=== PATIENT | female | born 1945 | race Caucasian/White ===

== ENCOUNTER 2019-12-31 20:37 | Observation (INO) | payer MEDICARE, OTHER ==
[2019-12-31] MEDS ORDERED: SODIUM CHLORIDE 0.9% 1,000 ML IV STA (21:01)
[2019-12-31] MEDS ORDERED: ONDANSETRON 4 MG/2 ML VIAL IVP STA (21:01)
--- NOTE | 2019-12-31 21:06 | ED ---
Nausea/Vomiting/Diarrhea HPI - General Chief complaint: Nausea/Vomiting/Diarrhea Stated complaint: diarrhea, dehydrated Time Seen by Provider: 12/31/19 20:53 Source: patient Mode of arrival: wheelchair Limitations: no limitations - History of Present Illness Initial comments: 74-year-old female patient with metastatic colon cancer presents to the emergen cy department today for evaluation of vomiting, diarrhea, and oral thrush. Patient states she was initially diagnosed in 2016 with colon cancer. States she had surgery for removal but then they found metastases to her liver and lungs. Patient states she also had lung surgery to remove the tumors but it has returned. States in November she started a new chemotherapy drug orally. States she had a lot of side effects from the medication including vomiting, diarrhea, and thrush. States she was admitted to the hospital for dehydration and subsequently discharged to rehab. Patient states about a week ago she was discharged from rehab into her own apartment. States that about 5 days ago she started having diarrhea again. Patient states the diarrhea is watery and frequent. States that she is also feeling very nauseated and is unable to eat. States that today she noticed a white and red spots in her mouth so started her nystatin. She denies any known fever or chills. States she has been having a new right flank/side pain for the last five days that is constant and nagging. Denies any chest pain or shortness of breath. Denies any hematochezia or melena. Denies any recent antibiotic use. Patient denies any recent rash, cough, numbness, tingling, dizziness, weakness, hematuria, dysuria, urinary urgency, urinary frequency, headache, visual changes, or any other complaints. - Related Data Home Medications Medication Instructions Recorded Confirmed Acetaminophen [Tylenol Arthritis] 650 - 1,300 mg PO Q8H PRN 12/31/19 12/31/19 Docusate [Colace] 100 mg PO BID PRN 12/31/19 12/31/19 Allergies Allergy/AdvReac Type Severity Reaction Status Date / Time famotidine [From Pepcid] Allergy Rash/Hives Verified 12/31/19 22:53 fluconazole [From Diflucan] Allergy Rash/Hives/ Verified 12/31/19 22:53 Swelling codeine AdvReac Nausea & Verified 12/31/19 22:53 Vomiting naproxen AdvReac Rapid Verified 12/31/19 22:53 Heart Rate Review of Systems ROS Statement: Those systems with pertinent positive or pertinent negative responses have been documented in the HPI. ROS Other: All systems not noted in ROS Statement are negative. Past Medical History Past Medical History: Cancer Additional Past Medical History / Comment(s): stage IV Colon Ca, muscular dystr ophy History of Any Multi-Drug Resistant Organisms: None Reported Past Surgical History: Section Additional Past Surgical History / Comment(s): lung surgery, colon surgery, ankle fusion, foot surgery Past Psychological History: No Psychological Hx Reported Smoking Status: Never smoker Past Alcohol Use History: None Reported Past Drug Use History: None Reported General Exam Limitations: no limitations General appearance: alert, in no apparent distress, other (This is a well- developed, well-nourished adult female patient in no acute distress. Vital signs upon presentation are temperature 99.9F oral, pulse 81, respirations 20, blood pressure 167/77, pulse ox 98% on room air.) Eye exam: Present: normal appearance, PERRL, EOMI. Absent: scleral icterus, conjunctival injection, periorbital swelling ENT exam: Present: mucous membranes dry. Absent: normal exam, normal oropharynx (Patient has beefy red appearing tongue, there are white lesions consistent with oral thrush.) Respiratory exam: Present: normal lung sounds bilaterally. Absent: respiratory distress, wheezes, rales, rhonchi, stridor Cardiovascular Exam: Present: regular rate, normal rhythm, normal heart sounds. Absent: systolic murmur, diastolic murmur, rubs, gallop, clicks GI/Abdominal exam: Present: soft, normal bowel sounds. Absent: distended, t enderness, guarding, rebound, rigid Neurological exam: Present: alert, oriented X3, CN II-XII intact Psychiatric exam: Present: normal affect, normal mood Skin exam: Present: warm, dry, intact, normal color. Absent: rash Course Vital Signs 12/31/19 12/31/19 20:40 21:09 Temperature 99.9 F H Pulse Rate 81 80 Respiratory 20 16 Rate Blood Pressure 167/77 177/80 O2 Sat by Pulse 98 99 Oximetry Medical Decision Making - Medical Decision Making 74-year-old female patient with history of metastatic colon cancer, metastases to the liver and lungs presents to the emergency department today for evaluation of nausea, vomiting, diarrhea. States she is unable to eat or drink for the last 5 days. She also reporting persistent right flank pain. Physical examination revealed soft nontender abdomen. Lungs are clear to auscultation. She had evidence for oral candidiasis. Labs reviewed and are relatively unremarkable. Upon reevaluation patient is still feeling quite poorly. Given history and decreased intake will admit to the hospital for observation, IV fluid rehydration, and further evaluation in the morning. Patient is agreeable. - Lab Data Result diagrams: 12/31/19 21:35 12/31/19 21:35 Lab Results 12/31/19 12/31/19 12/31/19 Range/Units 21:35 21:35 22:07 WBC 10.1 (3.8-10.6) k/uL RBC 3.89 (3.80-5.40) m/uL Hgb 10.5 L (11.4-16.0) gm/dL Hct 33.0 L (34.0-46.0) % MCV 84.9 (80.0-100.0) fL MCH 27.0 (25.0-35.0) pg MCHC 31.8 (31.0-37.0) g/dL RDW 19.8 H (11.5-15.5) % Plt Count 311 (150-450) k/uL Neutrophils % 74 % Lymphocytes % 13 % Monocytes % 7 % Eosinophils % 4 % Basophils % 0 % Neutrophils # 7.5 (1.3-7.7) k/uL Lymphocytes # 1.3 (1.0-4.8) k/uL Monocytes # 0.7 (0-1.0) k/uL Eosinophils # 0.4 (0-0.7) k/uL Basophils # 0.0 (0-0.2) k/uL Hypochromasia Moderate Anisocytosis Slight Microcytosis Slight Sodium 136 L (137-145) mmol/L Potassium 4.2 (3.5-5.1) mmol/L Chloride 107 (98-107) mmol/L Carbon Dioxide 23 (22-30) mmol/L Anion Gap 6 mmol/L BUN 16 (7-17) mg/dL Creatinine 0.50 L (0.52-1.04) mg/dL Est GFR (CKD-EPI)AfAm >90 (>60 ml/min/1.73 sqM) Est GFR (CKD-EPI)NonAf >90 (>60 ml/min/1.73 sqM) Glucose 105 H (74-99) mg/dL Calcium 8.8 (8.4-10.2) mg/dL Magnesium 2.1 (1.6-2.3) mg/dL Total Bilirubin 0.6 (0.2-1.3) mg/dL AST 17 (14-36) U/L ALT 7 (4-34) U/L Alkaline Phosphatase 80 (38-126) U/L Total Protein 6.1 L (6.3-8.2) g/dL Albumin 3.5 (3.5-5.0) g/dL Lipase 93 (23-300) U/L Urine Color Yellow Urine Appearance Clear (Clear) Urine pH 5.0 (5.0-8.0) Ur Specific [place] 1.015 (1.001-1.035) Urine Protein 1+ H (Negative) Urine Glucose (UA) Negative (Negative) Urine Ketones Negative (Negative) Urine Blood Negative (Negative) Urine Nitrite Negative (Negative) Urine Bilirubin Negative (Negative) Urine Urobilinogen <2.0 (<2.0) mg/dL Ur Leukocyte Esterase Small H (Negative) Urine RBC 1 (0-5) /hpf Urine WBC 13 H (0-5) /hpf Ur Squamous Epith Cells 1 (0-4) /hpf Urine Bacteria Rare H (None) /hpf Urine Mucus Occasional H (None) /hpf Disposition Clinical Impression: Intractable nausea and vomiting, Diarrhea, Oral candidiasis Disposition: ADMITTED IP TO THIS [facility] Condition: Serious Referrals: Roderick Barclay MD [Primary Care Provider] - 1-2 days Decision to Admit Reason: Admit from EC Decision Date: 12/31/19 Decision Time: 23:41
[2019-12-31 21:49] LABS: Anisocytosis Slight; Basophils % (A) 0 %; Eosinophils # (A) 0.4 k/uL (0-0.7); Eosinophils % (A) 4 %; HGB 10.5 gm/dL (11.4-16.0); Hypochromasia Moderate; Lymphocytes # (A) 1.3 k/uL (1.0-4.8); Lymphocytes % (A) 13 %; MCHC 31.8 g/dL (31.0-37.0); MCV 84.9 fL (80.0-100.0); Mean Platelet Volume 7.4; Microcytosis Slight; Monocytes # (A) 0.7 k/uL (0-1.0); Monocytes % (A) 7 %; Neutrophils # (A) 7.5 k/uL (1.3-7.7); Neutrophils % (A) 74 %; Platelet Count 311 k/uL (150-450); RBC 3.89 m/uL (3.80-5.40); RDW 19.8 % (11.5-15.5); WBC 10.1 k/uL (3.8-10.6)
[2019-12-31 22:00] LABS: ALT 7 U/L (4-34); AST 17 U/L (14-36); African American GFR (CKD) >90 (>60 ml/min/1.73 sqM); Albumin 3.5 g/dL (3.5-5.0); Alkaline Phosphatase 80 U/L (38-126); Anion Gap 6 mmol/L; Blood Urea Nitrogen 16 mg/dL (7-17); Calcium 8.8 mg/dL (8.4-10.2); Carbon Dioxide 23 mmol/L (22-30); Chloride 107 mmol/L (98-107); Glucose 105 mg/dL (74-99); Magnesium 2.1 mg/dL (1.6-2.3); Non-African American GFR(CKD) >90 (>60 ml/min/1.73 sqM); Potassium 4.2 mmol/L (3.5-5.1); Sodium 136 mmol/L (137-145); Total Bilirubin 0.6 mg/dL (0.2-1.3); Total Protein 6.1 g/dL (6.3-8.2)
[2019-12-31 22:18] LABS: Appearance,Urine Clear (Clear); Bacteria,Urine Rare /hpf; Bilirubin,Urine Negative (Negative); Blood,Urine Negative (Negative); Color,Urine Yellow; Glucose,Urine (UA) Negative (Negative); Ketones,Urine Negative (Negative); Leukocyte Esterase,Urine Small (Negative); Mucus,Urine Occasional /hpf; Nitrite,Urine Negative (Negative); Protein,Urine 1+ (Negative); RBC,Urine 1 /hpf (0-5); Specific Gravity,Urine 1.015 (1.001-1.035); Squamous Epithelial Cell,Urine 1 /hpf (0-4); Urobilinogen,Urine <2.0 mg/dL (<2.0); WBC,Urine 13 /hpf (0-5)
[2019-12-31] MEDS ORDERED: ONDANSETRON 4 MG/2 ML VIAL IVP PRN (23:38)
[2019-12-31] MEDS ORDERED: NALOXONE 0.4 MG/ML 1 ML VIAL IV PRN (23:38)
[2019-12-31] MEDS ORDERED: SODIUM CHLORIDE 0.9% 1,000 ML IV SCH (23:45)
[2020-01-01] MEDS: NYSTATIN 100,000 UNIT/ML SUSP 500,000 UNIT/5 ML CUP PO SCH ×4 (08:38→21:13)
[2020-01-01] MEDS ORDERED: FLUCONAZOLE 150 MG TAB PO STA (11:55)
[2020-01-01] MEDS ORDERED: CALCIUM CARBONATE 500 MG CHEWABLE PO PRN (11:56)
[2020-01-01] MEDS ORDERED: MELATONIN 3 MG TABLET PO PRN (11:56)
[2020-01-01] MEDS ORDERED: ALPRAZolam 0.25 MG TAB PO PRN (11:56)
[2020-01-01] MEDS ORDERED: ACETAMINOPHEN TAB 325 MG TAB PO PRN (11:56)
[2020-01-01] MEDS ORDERED: MAG HYDROX/AL HYDROX/SIMETH 30 ML CUP PO PRN (11:56)
[2020-01-01] MEDS: SODIUM CHLORIDE 0.9% 1,000 ML IV SCH ×2 (12:14→21:16)
[2020-01-01] MEDS: ENOXAPARIN 40 MG/0.4 ML SYRINGE SQ SCH (12:15)
--- NOTE | 2020-01-01 18:22 | P.HPIM ---
History of Present Illness H&P Date: 01/01/20 Chief Complaint: Nausea vomiting some diarrhea History of presenting complaint: This is a pleasant [address] Barclay. Patient's oncologist is Dr. Jack Vela. Patient is a diagnoses of metastatic colon cancer and presents with nausea vomiting and some diarrhea. She was initially diagnosed in 2017. She had some surgical resection and was found to have metastatic cyst of the liver and the lungs. Also had some lung surgery for removal of the tumor. But some of that r elapse. In November of this year she started off with oral chemotherapy. Having side effects predominantly nausea vomiting diarrhea. Recently admitted to the hospital for dehydration. She was at the rehab center on apartment. About for 5 days ago she started having some watery diarrhea again. Last 24 Oz ages [place] some gas. A very small amount of stool. Significant amount of nausea. Also some oral lesions. No real pain issue. Just weak and tired. Review of systems: GEN.: Diet, decreased appetite EYES: None HEENT: None NECK: None RESPIRATORY: None CARDIOVASCULAR: None GASTROINTESTINAL: As above GENITOURINARY: None MUSCULOSKELETAL: None LYMPHATICS: None HEMATOLOGICAL: None PSYCHIATRY: None NEUROLOGICAL: None Past medical history to include: Stage IV colon cancer with metastatic cyst of the lung and liver, muscular dystrophy for which she uses a wheelchair Social history: Patient is in a senior housing last for 5 days. Smoked for close to 30 as talked about 15 years ago. Does use electric wheelchair. Physical examination: VITAL SIGNS: 99.9, 81, 20, 167/77, 98% on room air GENERAL: BMI 27.7, laying of breath slightly tired. EYES: Pupils equal. Conjunctiva normal. HEENT: External appearance of nose and ears normal, oral cavity dry mucosa and some white spots. NECK: JVD not raised; masses not palpable. HEART: First and second heart sounds are normal; no edema. LUNGS: Respiratory rate normal; clear to auscultation. ABDOMEN: Soft, nontender, liver spleen not palpable, no masses palpable. PSYCH: Alert and oriented x3; mood and affect normal. NEUROLOGICAL: Cranial nerves grossly intact; no facial asymmetry, power and sensation grossly intact. LYMPHATICS: No lymph nodes palpable in the axilla and neck INVESTIGATIONS, reviewed in the clinical context: White count 10.1 hemoglobin 10.5 platelets 311 potassium 4.2 crit to 0.50 UA showing small leukoesterase some WBC Assessment: -This is a patient is getting oral chemotherapy for her metastatic colon cancer. Has had a bout of nausea vomiting diarrhea. Cardiac improvement and came back 5 days ago. Again settling down. Appears to be vital gastroenteritis. Denies any fever or chills. No abdominal tenderness. -Metastatic stage IV colon cancer -Chronic muscular dystrophy -Nausea likely secondary to oral chemotherapy pill -Oropharyngeal thrush Plan: Patient be hydrated IV. We will add Metamucil. We'll give a scopolamine patch. Get oncology consultation. DVT prophylaxis. Add nystatin swish and swallow. Full liquid diet. Given was discussed with the patient question also. Past Medical History Past Medical History: Cancer Additional Past Medical History / Comment(s): stage IV Colon Ca, muscular dystrophy History of Any Multi-Drug Resistant Organisms: None Reported Past Surgical History: Section Additional Past Surgical History / Comment(s): lung surgery, colon surgery, ankle fusion, foot surgery Past Anesthesia/Blood Transfusion Reactions: No Reported Reaction, Postoperative Nausea & Vomiting (PONV) Past Psychological History: No Psychological Hx Reported Smoking Status: Former smoker Past Alcohol Use History: None Reported Past Drug Use History: None Reported - Past Family History Mother Family Medical History: Cancer Additional Family Medical History / Comment(s): Parents of cancer Sister(s) Additional Family Medical History / Comment(s): Musccular dystrophy Brother(s) Family Medical History: Diabetes Mellitus Medications and Allergies Home Medications Medication Instructions Recorded Confirmed Type Acetaminophen [Tylenol Arthritis] 650 - 1,300 mg PO Q8H PRN 12/31/19 12/31/19 History Docusate [Colace] 100 mg PO BID PRN 12/31/19 12/31/19 History Allergies Allergy/AdvReac Type Severity Reaction Status Date / Time famotidine [From Pepcid] Allergy Rash/Hives Verified 12/31/19 22:53 fluconazole [From Diflucan] Allergy Rash/Hives/ Verified 12/31/19 22:53 Swelling codeine AdvReac Nausea & Verified 12/31/19 22:53 Vomiting naproxen AdvReac Rapid Verified 12/31/19 22:53 Heart Rate Physical Exam Vitals: Vital Signs Temp Pulse Pulse Resp BP BP Pulse Ox 01/01/20 05:37 98.9 F 75 18 170/77 96 07/30/20 02:59 16 01/01/20 00:10 99.4 F 01/01/20 00:07 82 16 170/81 98 01/01/20 00:00 98.4 F 76 18 167/78 100 12/31/19 21:09 80 16 177/80 99 12/31/19 20:40 99.9 F H 81 20 167/77 98 Intake and Output 12/31/19 01/01/20 01/01/20 22:59 06:59 14:59 Output Total 0 Balance 0 Output: Stool 0 Other: Voiding Method Toilet Bedside Commode Bedside Commode # Voids 1 Weight 64.41 kg 64.41 kg Results CBC & Chem 7: 12/31/19 21:35 12/31/19 21:35 Labs: Abnormal Lab Results - Last 24 Hours (Table) 12/31/19 12/31/19 12/31/19 Range/Units 21:35 21:35 22:07 Hgb 10.5 L (11.4-16.0) gm/dL Hct 33.0 L (34.0-46.0) % RDW 19.8 H (11.5-15.5) % Sodium 136 L (137-145) mmol/L Creatinine 0.50 L (0.52-1.04) mg/dL Glucose 105 H (74-99) mg/dL Total Protein 6.1 L (6.3-8.2) g/dL Urine Protein 1+ H (Negative) Ur Leukocyte Esterase Small H (Negative) Urine WBC 13 H (0-5) /hpf Urine Bacteria Rare H (None) /hpf Urine Mucus Occasional H (None) /hpf Microbiology - Last 24 Hours (Table) 12/31/19 22:07 Urine Culture - Preliminary Urine,Voided Thrombosis Risk Factor Assmnt - Choose All That Apply Any of the Below Risk Factors Present?: Yes Each Factor Represents 1 point: Obesity (BMI >25) Other Risk Factors: Yes Each Risk Factor Represents 3 Points: Age 75 years or older, Family history of DVT/PE Other congenital or acquired thrombophilia - If yes, enter type in comment: No Thrombosis Risk Factor Assessment Total Risk Factor Score: 7 Thrombosis Risk Factor Assessment Level: High Risk
[2020-01-01] MEDS: PSYLLIUM HUSK 100% 6 GM PACKET PO SCH (21:09)
--- NOTE | 2020-01-02 00:48 | P.CONS ---
History of Present Illness - Reason for Consult Consult date: 01/01/20 metastatic colon cancer, intractable nausea vomiting and diarrhea - History of Present Illness the patient is 74-year-old white female, with oncology treatment has been through [facility] under Dr. Jack Vela, in the [facility]. The patient was diagnosed with colon cancer in 2016 and underwent surgery. She states that due to early-stage systemic chemotherapy was not recommended. Unfortunately she developed metastatic recurrence in late 2017 in the lung. She was treated with resection of some of the lesions, and definitive radiation to a remaining lesion on the left lung in early 2018. She was then on systemic chemotherapy, and states that she had about 8 cycles of the same. Scans at that time showed no evidence of disease. The patient was having progressive side effects from chemo due to which she was changed to Avastin. According to the patient she then developed several competitions related to Avastin, including kidney damage. Therefore this was discontinued. Restaging at this time, around 07/24 showed progression with metastatic disease now in the liver. The patient states that she had biomarker testing done. It appears that this was negative, as it was recommended that she start Stivarga. She ultimately started this in 11/21, and had 1 cycle but then developed nausea, vomiting, diarrhea and dehydration and was admitted. She also had an intercurrent UTI at that time. Hospitalization was complicated by fluid overload. She was hospitalized for about 10 days and then transfer to ECF. She did improve gradually in the ECF and was discharged home around 12/20/19. She states that she was doing well for about a week with good appetite and slowly increasing strength. However over the last 4-5 days she developed diarrhea again which increased to about 5-6 watery bowel movements per day. She'll also having nausea and decreased appetite. she noticed recurrent thrush on her tongue. She denied any fevers or chills. Due to progressive symptoms, she came into the emergency room and was admitted for further management. she states that she was supposed to resume Stivarga with dose reduction on 01/05/20 Review of Systems Constitutional: Reports fatigue, Reports weakness, Reports weight loss Eyes: denies blurred vision, denies pain Ears: deny: decreased hearing, ear discharge, earache, tinnitus Ears, nose, mouth and throat: Reports as per HPI (thrush), Denies headache, Denies sore throat Cardiovascular: Reports decreased exercise tolerance Respiratory: Denies cough Gastrointestinal: Reports diarrhea, Reports nausea, Reports vomiting Genitourinary: Denies dysuria, Denies hematuria Menstruation: Reports postmenopausal Musculoskeletal: Reports muscle weakness Integumentary: Denies pruritus, Denies rash Neurological: Reports weakness Psychiatric: Denies anxiety, Denies depression Endocrine: Reports fatigue, Reports weight change Hematologic/Lymphatic: Reports as per HPI Past Medical History Past Medical History: Cancer Additional Past Medical History / Comment(s): stage IV Colon Ca, muscular dystrophy History of Any Multi-Drug Resistant Organisms: None Reported Past Surgical History: Section Additional Past Surgical History / Comment(s): lung surgery, colon surgery, ankle fusion, foot surgery Past Anesthesia/Blood Transfusion Reactions: No Reported Reaction, Postoperative Nausea & Vomiting (PONV) Past Psychological History: No Psychological Hx Reported Smoking Status: Former smoker Past Alcohol Use History: None Reported Past Drug Use History: None Reported - Past Family History Mother Family Medical History: Cancer Additional Family Medical History / Comment(s): Parents of cancer Sister(s) Additional Family Medical History / Comment(s): Musccular dystrophy Brother(s) Family Medical History: Diabetes Mellitus Medications and Allergies Home Medications Medication Instructions Recorded Confirmed Type Acetaminophen [Tylenol Arthritis] 650 - 1,300 mg PO Q8H PRN 12/31/19 12/31/19 History Docusate [Colace] 100 mg PO BID PRN 12/31/19 12/31/19 History Allergies Allergy/AdvReac Type Severity Reaction Status Date / Time famotidine [From Pepcid] Allergy Rash/Hives Verified 12/31/19 22:53 fluconazole [From Diflucan] Allergy Rash/Hives/ Verified 12/31/19 22:53 Swelling codeine AdvReac Nausea & Verified 12/31/19 22:53 Vomiting naproxen AdvReac Rapid Verified 12/31/19 22:53 Heart Rate Physical Exam Vitals: Vital Signs Temp Pulse Pulse Resp BP BP Pulse Ox 01/01/20 11:38 99.2 F 68 17 138/75 99 01/01/20 05:37 98.9 F 75 18 170/77 96 01/01/20 02:59 16 01/01/20 00:10 99.4 F 01/01/20 00:07 82 16 170/81 98 01/01/20 00:00 98.4 F 76 18 167/78 100 12/31/19 21:09 80 16 177/80 99 12/31/19 20:40 99.9 F H 81 20 167/77 98 Intake and Output 01/01/20 01/01/20 01/01/20 06:59 14:59 22:59 Intake Total 830 Output Total 0 Balance 0 830 Intake: Intake, IV Titration 350 Amount Sodium Chloride 0.9% 1, 350 000 ml @ 50 mls/hr IV . Q20H [facility] Rx#:[id number] Oral 480 Output: Stool 0 Other: Voiding Method Bedside Commode Bedside Commode # Voids 1 Weight 64.41 kg - Constitutional General appearance: no acute distress - EENT Eyes: EOMI, PERRLA - Neck Neck: no lymphadenopathy Thyroid: bilateral: normal size - Respiratory Respiratory: bilateral: CTA - Cardiovascular Rhythm: regular Heart sounds: normal: S1, S2 - Gastrointestinal General gastrointestinal: normal bowel sounds, soft - Integumentary Integumentary: normal - Neurologic Neurologic: CNII-XII intact - Musculoskeletal Musculoskeletal: strength equal bilaterally - Psychiatric Psychiatric: A&O x's 3, appropriate affect Results CBC & Chem 7: 12/31/19 21:35 12/31/19 21:35 Labs: Abnormal Lab Results - Last 24 Hours (Table) 12/31/19 12/31/19 12/31/19 Range/Units 21:35 21:35 22:07 Hgb 10.5 L (11.4-16.0) gm/dL Hct 33.0 L (34.0-46.0) % RDW 19.8 H (11.5-15.5) % Sodium 136 L (137-145) mmol/L Creatinine 0.50 L (0.52-1.04) mg/dL Glucose 105 H (74-99) mg/dL Total Protein 6.1 L (6.3-8.2) g/dL Urine Protein 1+ H (Negative) Ur Leukocyte Esterase Small H (Negative) Urine WBC 13 H (0-5) /hpf Urine Bacteria Rare H (None) /hpf Urine Mucus Occasional H (None) /hpf Microbiology - Last 24 Hours (Table) 12/31/19 22:07 Urine Culture - Preliminary Urine,Voided Assessment and Plan (1) Diarrhea Narrative/Plan: The patient had significant diarrhea as well as nausea and vomiting with her regimen. This has resolved with stoppage of her regimen. She has had recurrent GI symptoms. These are unlikely to be related treatment effect, as she has been off treatment now for some weeks and treatment related adverse events had resolved. - Abdominal exam is fairly normal. - The patient actually feels significantly improved since admission. Therefore clinically an infectious cause is felt to be a primary differential. Urinalysis did show mild abnormality. Await cultures. Stool studies have also been ordered. - The stool studies are negative patient can be treated with antidiarrheals. However she has not had any diarrhea today. - If infection workup is negative, and symptoms resolved the patient can subsequently be discharged Current Visit: Yes Status: Acute Code(s): R19.7 - DIARRHEA, UNSPECIFIED SNOMED Code(s): 92820231 (2) Intractable nausea and vomiting Narrative/Plan: Etiology felt to be same as noted above for diarrhea. Unlikely to be related to her medication given her interval since last dosing and resolution of symptoms since then, followed by recurrence. - Symptomatic treatment with antibiotics - Patient already feels significantly improved today. Current Visit: Yes Status: Acute Code(s): R11.2 - NAUSEA WITH VOMITING, UNSPECIFIED SNOMED Code(s): 610571425 (3) Colon cancer Narrative/Plan: Diagnostic and therapeutic circumstances as described. If current symptoms of progressive the patient will need additional imaging. However given improvement in symptoms, and fairly benign exam, additional CT imaging is unlikely to be of benefit as the patient has no comparison studies here. -Additional CT imaging only if the patient has progressive unexplained symptoms - Patient already has follow-up scheduled with her oncologist Dr. Vela in about 2 weeks. - Was supposed to resume stivarga on 01/05/20 with a reduced dose (80 mg daily day 1-21-28 days). Assuming the patient recovers from her acute situation and is able to be discharged, she was advised not to resume the medication before contacting Dr. Vela Current Visit: Yes Status: Acute Code(s): C18.9 - MALIGNANT NEOPLASM OF COLON, UNSPECIFIED SNOMED Code(s): 228841526
[2020-01-02] MEDS: SODIUM CHLORIDE 0.9% 1,000 ML IV SCH ×2 (03:41→09:07)
[2020-01-02] MEDS ORDERED: FLUCONAZOLE 100 MG TAB PO SCH (09:00)
[2020-01-02] MEDS: ENOXAPARIN 40 MG/0.4 ML SYRINGE SQ SCH (09:10)
[2020-01-02] MEDS: PSYLLIUM HUSK 100% 6 GM PACKET PO SCH (09:11)
[2020-01-02] MEDS: NYSTATIN 100,000 UNIT/ML SUSP 500,000 UNIT/5 ML CUP PO SCH ×2 (09:12→12:41)
[2020-01-02 11:56] VITALS: BP 146/68; PULSE 65; RESP 18; TEMP 98.2
--- NOTE | 2020-01-03 19:58 | P.DS ---
Providers Date of admission: 12/31/19 23:38 Expected date of discharge: 01/02/20 Attending physician: Fili Orellana Consults: 01/01/20 11:58 Consult Physician Routine Consulting Provider: Get Nguyen Consult Reason/Comments: colon cancer Do you want consulting provider notified?: Yes Primary care physician: [facility] Course: Chief Complaint: Nausea vomiting some diarrhea History of presenting complaint: This is a pleasant [address] Barclay. Patient's oncologist is Dr. Jack Vela. Patient is a diagnoses of metastatic colon cancer and presents with nausea vomiting and some diarrhea. She was initially diagnosed in 2016. She had some surgical resection and was found to have metastasis of the liver and the lungs. Also had some lung surgery for removal of the tumor. But some of that relapse. In November of this year she started off with oral chemotherapy. Having side effects predominantly nausea vomiting diarrhea. Recently admitted to the hospital for dehydration. About for 5 days ago she started having some watery diarrhea again. Last 24 hours only passing some gas and little stool. Significant amount of nausea. Also some oral lesions. No real pain issue. Just weak and tired. Admitted with vital gastroenteritis, oral thrush, dehydration. Patient responded well to oral nystatin, IV fluids. Seen by Dr. Nguyen from oncology. Today-doing much better. Keen to go home. Follow up with her oncologist. Symptoms much improved. Consultation: Dr. Nguyen from oncology Physical examination: VITAL SIGNS: 98.2, 65, 18, 1 46 x 68, then 9% room air GENERAL: Sitting up, more comfortable EYES: Pupils equal. Conjunctiva normal. HEENT: External appearance of nose and ears normal, oral cavity dry mucosa and some white spots. NECK: JVD not raised; masses not palpable. HEART: First and second heart sounds are normal; no edema. LUNGS: Respiratory rate normal; clear to auscultation. ABDOMEN: Soft, nontender, liver spleen not palpable, no masses palpable. PSYCH: Alert and oriented x3; mood and affect normal. INVESTIGATIONS, reviewed in the clinical context: White count 10.1 hemoglobin 10.5 platelets 311 potassium 4.2 crit to 0.50 UA showing small leukoesterase some WBC COVID 19 PCF-not detected Assessment: -This is a patient is getting oral chemotherapy for her metastatic colon cancer. Has had a bout of nausea vomiting diarrhea. Cardiac improvement and came back 5 days ago. Again settling down. Appears to be bilateral gastroenteritis. Denies any fever or chills. No abdominal tenderness. -Metastatic stage IV colon cancer -Chronic muscular dystrophy -Nausea likely secondary to oral chemotherapy pill -Oropharyngeal thrush Disposition: Home Patient Condition at Discharge: Stable Plan - Discharge Summary New Discharge Prescriptions: New Psyllium Husk 100% [Metamucil Packet] 6 gm PO BID #60 packet Nystatin 100,000 Unit/ml Susp [Mycostatin Oral Susp] 500,000 unit PO QID #100 ml Continue Acetaminophen [Tylenol Arthritis] 650 - 1,300 mg PO Q8H PRN PRN Reason: Pain Discontinued Docusate [Colace] 100 mg PO BID PRN PRN Reason: Constipation Discharge Medication List Acetaminophen [Tylenol Arthritis] 650 - 1,300 mg PO Q8H PRN 12/31/19 [History] Nystatin 100,000 Unit/ml Susp [Mycostatin Oral Susp] 500,000 unit PO QID #100 ml 01/02/20 [Rx] Psyllium Husk 100% [Metamucil Packet] 6 gm PO BID #60 packet 01/02/20 [Rx] Follow up Appointment(s)/Referral(s): dr gerardo [Other] - 1 Week (please call office to get appt, time and date.) Roderick Barclay MD [Primary Care Provider] - 01/07/20 1:00 pm Patient Instructions/Handouts: Laxative, Bulk-forming (By mouth), Nystatin (By mouth), Dehydration (DC), Oral Candidiasis (GEN), Acute Diarrhea (GEN) Activity/Diet/Wound Care/Special Instructions: [facility] Patient to follow up with Dr. Jack Vela(Oncologist)for future Oncology needs/chemotherapy--as previously scheduled. Discharge Disposition: HOME WITH HOME HEALTH SERVICES
== END 2020-01-02 13:45 | disposition home health service (06) ==
LOC: EC 20:37 → 5NMEDONC 23:38
PROVIDERS: ADMIT Hospitalist; ATTEND Hospitalist
DX: R19.7 Diarrhea, unspecified (principal); R11.2 Nausea with vomiting, unspecified; T45.1X5A Adverse effect of antineoplastic and immunosuppressive drugs, initial encounter; E86.0 Dehydration; B37.0 Candidal stomatitis; B37.89 Other sites of candidiasis; C18.9 Malignant neoplasm of colon, unspecified; C78.7 Secondary malignant neoplasm of liver and intrahepatic bile duct; C78.00 Secondary malignant neoplasm of unspecified lung; G71.00 Muscular dystrophy, unspecified; Z87.891 Personal history of nicotine dependence; Z98.1 Arthrodesis status; E66.9 Obesity, unspecified; Z68.27 Body mass index [BMI] 27.0-27.9, adult; Z79.899 Other long term (current) drug therapy; Z88.8 Allergy status to other drugs, medicaments and biological substances; Z88.5 Allergy status to narcotic agent; Z87.440 Personal history of urinary (tract) infections; Z20.828 Contact with and (suspected) exposure to other viral communicable diseases; Z82.69 Family history of other diseases of the musculoskeletal system and connective tissue; Z83.3 Family history of diabetes mellitus; Z82.49 Family history of ischemic heart disease and other diseases of the circulatory system
CPT/HCPCS: 96372 ×2; 96374; 99284; 36415; 80053; 83690; 83735; 85025; 81001; 87086; 87077; 87186; G0378 ×2; U0003; J2405; J1650 ×2; J1642

== ENCOUNTER 2020-01-30 10:59 | Emergency (ER) | payer MEDICARE, OTHER ==
[2020-01-30] MEDS ORDERED: SODIUM CHLORIDE 0.9% 1,000 ML IV STA (11:26)
[2020-01-30] MEDS ORDERED: ONDANSETRON 4 MG/2 ML VIAL IVP STA (11:26)
[2020-01-30] MEDS ORDERED: HYDROmorphone 0.5 MG/0.5 ML SYRINGE IVP STA (11:26)
[2020-01-30 12:42] LABS: Anisocytosis Slight; Basophils % (A) 0 %; Eosinophils # (A) 0.1 k/uL (0-0.7); Eosinophils % (A) 1 %; HCT 37.8 % (34.0-46.0); HGB 11.6 gm/dL (11.4-16.0); Hypochromasia Marked; Lymphocytes # (A) 1.2 k/uL (1.0-4.8); Lymphocytes % (A) 11 %; MCH 25.1 pg (25.0-35.0); MCHC 30.6 g/dL (31.0-37.0); MCV 82.1 fL (80.0-100.0); Mean Platelet Volume 7.4; Microcytosis Slight; Monocytes # (A) 0.9 k/uL (0-1.0); Monocytes % (A) 8 %; Neutrophils # (A) 8.7 k/uL (1.3-7.7); Neutrophils % (A) 78 %; Platelet Count 383 k/uL (150-450); Poikilocytosis Slight; RBC 4.61 m/uL (3.80-5.40); RDW 17.7 % (11.5-15.5); WBC 11.1 k/uL (3.8-10.6)
[2020-01-30 12:53] LABS: ALT 14 U/L (4-34); AST 24 U/L (14-36); African American GFR (CKD) >90 (>60 ml/min/1.73 sqM); Albumin 3.5 g/dL (3.5-5.0); Alkaline Phosphatase 92 U/L (38-126); Amylase 38 U/L (30-110); Anion Gap 8 mmol/L; Blood Urea Nitrogen 13 mg/dL (7-17); Calcium 8.6 mg/dL (8.4-10.2); Carbon Dioxide 24 mmol/L (22-30); Chloride 105 mmol/L (98-107); Creatine Kinase 34 U/L (30-135); Glucose 105 mg/dL (74-99); Non-African American GFR(CKD) >90 (>60 ml/min/1.73 sqM); Potassium 4.1 mmol/L (3.5-5.1); Sodium 137 mmol/L (137-145); Total Bilirubin 0.7 mg/dL (0.2-1.3); Total Protein 6.6 g/dL (6.3-8.2)
--- NOTE | 2020-01-30 13:25 | ED ---
Abdominal Pain HPI - General Source: patient, RN notes reviewed Mode of arrival: wheelchair Limitations: no limitations <Isidoro Stewart - Last Filed: 01/30/20 17:02> <Rossana Loja - Last Filed: 01/31/20 12:51> - General Chief Complaint: Abdominal Pain Stated Complaint: Abd pain Time Seen by Provider: 01/30/20 11:05 - History of Present Illness Initial Comments: This a 74-year-old female presents emergency Department chief complaint of severe lower abdominal pain. Patient's been having increasing abdominal pain. Patient states her current pain is 10/10 on time. She does have a history of lung cancer with metastasis. Patient states pain is in the lower abdomen no significant dysuria or diarrhea. Patient does feel slightly constipated. No noted fever. No change in chest pain or shortness of breath. (Isidoro Stewart) - Related Data Home Medications Medication Instructions Recorded Confirmed Acetaminophen [Tylenol Arthritis] 650 - 1,300 mg PO Q8H PRN 12/31/19 01/30/20 Clotrimazole Cari [Mycelex 10 mg MUCOUS MEM 5XD 01/30/20 01/30/20 Cari] Lidocaine-Prilocaine Cream [Emla 1 applic TOPICAL DAILY PRN 01/30/20 01/30/20 Cream 2.5%/2.5%] Losartan [Cozaar] 50 mg PO DAILY 01/30/20 01/30/20 Ondansetron [Zofran] 4 mg PO Q12HR PRN 01/30/20 01/30/20 Psyllium Husk [Metamucil] 0.4 gm PO BID 01/30/20 01/30/20 Regorafenib [Stivarga] 40 mg PO DIRECTED 01/30/20 01/30/20 amLODIPine [Norvasc] 5 mg PO DAILY 01/30/20 01/30/20 cloNIDine HCL [Catapres] 0.2 mg PO DAILY PRN 01/30/20 01/30/20 Previous Rx's Medication Instructions Recorded Bisac/NaCl/Nahco3/KCl/Peg 3350 1 kit PO DIRECTED #1 kit 01/30/20 [Peg-Prep Kit] Allergies Allergy/AdvReac Type Severity Reaction Status Date / Time famotidine [From Pepcid] Allergy Rash/Hives Verified 01/30/20 12:37 fluconazole [From Diflucan] Allergy Rash/Hives/ Verified 01/30/20 12:37 Swelling codeine AdvReac Nausea & Verified 01/30/20 12:37 Vomiting naproxen AdvReac Rapid Verified 01/30/20 12:37 Heart Rate Review of Systems ROS Other: All systems not noted in ROS Statement are negative. <NatanIsidoro pendleton - Last Filed: 01/30/20 17:02> ROS Other: All systems not noted in ROS Statement are negative. <Rossana Loja - Last Filed: 01/31/20 12:51> ROS Statement: Those systems with pertinent positive or pertinent negative responses have been documented in the HPI. Past Medical History Past Medical History: Cancer Additional Past Medical History / Comment(s): stage IV Colon Ca, muscular dy strophy History of Any Multi-Drug Resistant Organisms: None Reported Past Surgical History: Section Additional Past Surgical History / Comment(s): lung surgery, colon surgery, ankle fusion, foot surgery Past Anesthesia/Blood Transfusion Reactions: No Reported Reaction, Postoperative Nausea & Vomiting (PONV) Past Psychological History: No Psychological Hx Reported Smoking Status: Former smoker Past Alcohol Use History: None Reported Past Drug Use History: None Reported - Past Family History Mother Family Medical History: Cancer Additional Family Medical History / Comment(s): Parents of cancer Sister(s) Additional Family Medical History / Comment(s): Musccular dystrophy Brother(s) Family Medical History: Diabetes Mellitus <NatanIsidoro pendleton - Last Filed: 01/30/20 17:02> General Exam Limitations: no limitations General appearance: alert, in no apparent distress Head exam: Present: atraumatic, normocephalic, normal inspection Eye exam: Present: normal appearance, PERRL, EOMI. Absent: scleral icterus, conjunctival injection, periorbital swelling ENT exam: Present: normal exam, normal oropharynx, mucous membranes moist Neck exam: Present: normal inspection, full ROM. Absent: tenderness, meningismus, lymphadenopathy Respiratory exam: Present: normal lung sounds bilaterally. Absent: respiratory distress, wheezes, rales, rhonchi, stridor Cardiovascular Exam: Present: regular rate, normal rhythm, normal heart sounds. Absent: systolic murmur, diastolic murmur, rubs, gallop, clicks GI/Abdominal exam: Present: soft, tenderness, normal bowel sounds. Absent: distended, guarding, rebound, rigid Back exam: Absent: CVA tenderness (R), CVA tenderness (L) Neurological exam: Present: alert, oriented X3 Psychiatric exam: Present: normal affect, normal mood <Isidoro Stewart - Last Filed: 01/30/20 17:02> Course Vital Signs 01/30/20 01/30/20 01/30/20 11:01 14:21 15:00 Temperature 98.5 F 98.4 F Pulse Rate 85 78 84 Respiratory 18 16 18 Rate Blood Pressure 148/87 167/82 164/85 O2 Sat by Pulse 97 98 97 Oximetry 01/30/20 17:02 Temperature 98.3 F Pulse Rate 81 Respiratory 18 Rate Blood Pressure 152/78 O2 Sat by Pulse 96 Oximetry Medical Decision Making - Lab Data Result diagrams: 01/30/20 11:46 01/30/20 11:46 <Isidoro Stewart - Last Filed: 01/30/20 17:02> - Lab Data Result diagrams: 01/30/20 11:46 01/30/20 11:46 <Rossana Loja - Last Filed: 01/31/20 12:51> - Medical Decision Making CT labs urinalysis was reviewed. Patient does have moderate constipation she did have noted gallstones but is not area patient's pain. Patient was given enema with minimal relief. Patient be provided laxatives. Patient will be discharged in stable condition. (Isidoro Stewart) I was available for consultation in the emergency department. The history and physical exam were done by the midlevel provider. I was consulted for this patients care. I reviewed the case with the midlevel provider and based on their presentation of the patient, I agree with the assessment, medical decision making and plan of care as documented. Patient aware of lung nodules for which they are already currently being observed. Chart was dictated using [employer] dictation software. Attempts were made to correct any dictation errors however some typographical errors may persist. Patient was seen during a national state of emergency due to the Covid-19 pandemic. (Rossana Loja) - Lab Data Lab Results 01/30/20 01/30/20 01/30/20 Range/Units 11:46 11:46 11:46 WBC 11.1 H (3.8-10.6) k/uL RBC 4.61 (3.80-5.40) m/uL Hgb 11.6 (11.4-16.0) gm/dL Hct 37.8 (34.0-46.0) % MCV 82.1 (80.0-100.0) fL MCH 25.1 (25.0-35.0) pg MCHC 30.6 L (31.0-37.0) g/dL RDW 17.7 H (11.5-15.5) % Plt Count 383 (150-450) k/uL Neutrophils % 78 % Lymphocytes % 11 % Monocytes % 8 % Eosinophils % 1 % Basophils % 0 % Neutrophils # 8.7 H (1.3-7.7) k/uL Lymphocytes # 1.2 (1.0-4.8) k/uL Monocytes # 0.9 (0-1.0) k/uL Eosinophils # 0.1 (0-0.7) k/uL Basophils # 0.0 (0-0.2) k/uL Hypochromasia Marked Poikilocytosis Slight Anisocytosis Slight Microcytosis Slight Sodium 137 (137-145) mmol/L Potassium 4.1 (3.5-5.1) mmol/L Chloride 105 (98-107) mmol/L Carbon Dioxide 24 (22-30) mmol/L Anion Gap 8 mmol/L BUN 13 (7-17) mg/dL Creatinine 0.46 L (0.52-1.04) mg/dL Est GFR (CKD-EPI)AfAm >90 (>60 ml/min/1.73 sqM) Est GFR (CKD-EPI)NonAf >90 (>60 ml/min/1.73 sqM) Glucose 105 H (74-99) mg/dL Plasma Lactic Acid Osvaldo (0.7-2.0) mmol/L Calcium 8.6 (8.4-10.2) mg/dL Total Bilirubin 0.7 (0.2-1.3) mg/dL AST 24 (14-36) U/L ALT 14 (4-34) U/L Alkaline Phosphatase 92 (38-126) U/L Creatine Kinase 34 (30-135) U/L Total Protein 6.6 (6.3-8.2) g/dL Albumin 3.5 (3.5-5.0) g/dL Amylase 38 (30-110) U/L Lipase 36 (23-300) U/L Urine Color Colorless Urine Appearance Clear (Clear) Urine pH 7.0 (5.0-8.0) Ur Specific [place] 1.022 (1.001-1.035) Urine Protein Negative (Negative) Urine Glucose (UA) Negative (Negative) Urine Ketones Negative (Negative) Urine Blood Negative (Negative) Urine Nitrite Negative (Negative) Urine Bilirubin Negative (Negative) Urine Urobilinogen <2.0 (<2.0) mg/dL Ur Leukocyte Esterase Small H (Negative) Urine WBC 2 (0-5) /hpf Ur Squamous Epith Cells 4 (0-4) /hpf Urine Bacteria Rare H (None) /hpf Hyaline Casts 1 (0-2) /lpf 01/30/20 Range/Units 11:46 WBC (3.8-10.6) k/uL RBC (3.80-5.40) m/uL Hgb (11.4-16.0) gm/dL Hct (34.0-46.0) % MCV (80.0-100.0) fL MCH (25.0-35.0) pg MCHC (31.0-37.0) g/dL RDW (11.5-15.5) % Plt Count (150-450) k/uL Neutrophils % % Lymphocytes % % Monocytes % % Eosinophils % % Basophils % % Neutrophils # (1.3-7.7) k/uL Lymphocytes # (1.0-4.8) k/uL Monocytes # (0-1.0) k/uL Eosinophils # (0-0.7) k/uL Basophils # (0-0.2) k/uL Hypochromasia Poikilocytosis Anisocytosis Microcytosis Sodium (137-145) mmol/L Potassium (3.5-5.1) mmol/L Chloride (98-107) mmol/L Carbon Dioxide (22-30) mmol/L Anion Gap mmol/L BUN (7-17) mg/dL Creatinine (0.52-1.04) mg/dL Est GFR (CKD-EPI)AfAm (>60 ml/min/1.73 sqM) Est GFR (CKD-EPI)NonAf (>60 ml/min/1.73 sqM) Glucose (74-99) mg/dL Plasma Lactic Acid Osvaldo 0.9 (0.7-2.0) mmol/L Calcium (8.4-10.2) mg/dL Total Bilirubin (0.2-1.3) mg/dL AST (14-36) U/L ALT (4-34) U/L Alkaline Phosphatase (38-126) U/L Creatine Kinase (30-135) U/L Total Protein (6.3-8.2) g/dL Albumin (3.5-5.0) g/dL Amylase (30-110) U/L Lipase (23-300) U/L Urine Color Urine Appearance (Clear) Urine pH (5.0-8.0) Ur Specific [place] (1.001-1.035) Urine Protein (Negative) Urine Glucose (UA) (Negative) Urine Ketones (Negative) Urine Blood (Negative) Urine Nitrite (Negative) Urine Bilirubin (Negative) Urine Urobilinogen (<2.0) mg/dL Ur Leukocyte Esterase (Negative) Urine WBC (0-5) /hpf Ur Squamous Epith Cells (0-4) /hpf Urine Bacteria (None) /hpf Hyaline Casts (0-2) /lpf Disposition Is patient prescribed a controlled substance at d/c from ED?: No Time of Disposition: 17:03 <Isidoro Stewart - Last Filed: 01/30/20 17:02> <Rossana Loja - Last Filed: 01/31/20 12:51> Clinical Impression: Constipation, Abdominal pain Disposition: HOME SELF-CARE Condition: Stable Instructions (If sedation given, give patient instructions): Abdominal Pain (ED) Additional Instructions: Please return to the Emergency Department if symptoms worsen or any other concerns. Prescriptions: Bisac/NaCl/Nahco3/KCl/Peg 3350 [Peg-Prep Kit] 1 kit PO DIRECTED #1 kit Referrals: Roderick Barclay MD [Primary Care Provider] - 1-2 days
--- NOTE | 2020-01-30 13:49 | CT ---
EXAMINATION TYPE: CT abdomen pelvis w con DATE OF EXAM: 01/30/2020 COMPARISON: None at this location INDICATION: Pelvic pain. History of colon cancer with mets to lung. DLP: 836.1 mGycm, Automated exposure control for dose reduction was used. CONTRAST: 100 mL of Isovue 300. Study performed without Oral Contrast TECHNIQUE: Axial images were obtained from above the diaphragm to the pubic rami in the axial plane a t 5 mm thick sections. Reconstructed images are reviewed on the computer in the coronal plane. FINDINGS: Limited CT sections are obtained the lung bases. There is an oval density with wall thickening in th e posterior medial right lung base. A loculated effusion or a mass with central necrosis could be con sidered. This area measures 5.0 x 2.4 cm. There is some linear density adjacent. Small right pleural effusion is present. There is a loculated low density structure along the anterior right chest wall measuring 6.4 x 2.6 cm . Example image 201 image 11. There is a 0.9 cm nodule along the right pericardial mediastinal wall. Image 4. CT ABDOMEN: Liver: Normal Spleen: Normal Pancreas: Atrophic Adrenal glands: The adrenal glands are normal. Gallbladder: Gallstone is suspected. Kidneys: No masses are evident. No hydronephrosis is present. No cysts are present. Delayed images were obtained through the kidneys, which remain unremarkable. Aorta: Vascular calcification is within the aorta. Inferior vena cava: Normal. CT PELVIS: Loops of bowel within the abdomen and pelvis are normal. The study is performed without oral cont rast limiting bowel evaluation. Fecal debris is within the colon. No dilated small bowel loops are ev ident. Appendix: Not identified. No suspicious tubular structures or inflammatory changes are evident. Urinary bladder: Normal. Genitourinary structures: Uterus is normal. Adnexal regions are within normal limits. No free fluid i s within the pelvis. Osseous structures: No suspicious lytic or sclerotic lesions. Advanced degenerative changes are at th e bilateral hips more so on the left. Sacroiliac joint degenerative changes are present. Marked facet hypertrophy is present on the right at L5-S1. Facet degenerative changes are within the lower lumbar spine. IMPRESSIONS: 1. Right lung base nodules discussed above. These are predominantly within the periphery and within the pleural margins. 2. Small right pleural effusion. 3. Suspected gallstone.
[2020-01-30 14:44] LABS: Appearance,Urine Clear (Clear); Bacteria,Urine Rare /hpf; Bilirubin,Urine Negative (Negative); Blood,Urine Negative (Negative); Color,Urine Colorless; Glucose,Urine (UA) Negative (Negative); Hyaline Casts,Urine 1 /lpf (0-2); Ketones,Urine Negative (Negative); Leukocyte Esterase,Urine Small (Negative); Nitrite,Urine Negative (Negative); Protein,Urine Negative (Negative); Specific Gravity,Urine 1.022 (1.001-1.035); Squamous Epithelial Cell,Urine 4 /hpf (0-4); Urobilinogen,Urine <2.0 mg/dL (<2.0); WBC,Urine 2 /hpf (0-5)
[2020-01-30] MEDS ORDERED: DOCUSATE 283 MG/5 ML ENEMA RECTAL STA (14:53)
[2020-01-30 15:04] VITALS: RESP 18
[2020-01-30 17:03] VITALS: BP 152/78; PULSE 81; TEMP 98.3
== END 2020-01-30 17:15 | disposition home or self-care (01) ==
LOC: EC 10:59
DX: K59.00 Constipation, unspecified (principal); K80.20 Calculus of gallbladder without cholecystitis without obstruction; Z85.118 Personal history of other malignant neoplasm of bronchus and lung; Z88.8 Allergy status to other drugs, medicaments and biological substances; Z88.1 Allergy status to other antibiotic agents; Z88.5 Allergy status to narcotic agent; Z85.038 Personal history of other malignant neoplasm of large intestine; Z79.899 Other long term (current) drug therapy; Z87.891 Personal history of nicotine dependence
CPT/HCPCS: 99284; 96374; 96375; 96361 ×3; 36415; 80053; 82150; 82550; 83605; 83690; 85025; 81001; 74177; J2405; J1170; Q9967

== ENCOUNTER 2020-02-02 00:56 | Inpatient (IN) | payer MEDICARE, OTHER ==
[2020-02-02] MEDS ORDERED: HYDROmorphone 1 MG/ML 1 ML SYRINGE IVP STA (01:26)
--- NOTE | 2020-02-02 01:26 | ED ---
Abdominal Pain HPI - General Chief Complaint: Abdominal Pain Stated Complaint: abd pain Time Seen by Provider: 02/02/20 01:00 Source: patient, EMS Mode of arrival: EMS Limitations: no limitations - History of Present Illness Initial Comments: Dora is a pleasant 74yo female with PMH of metastatic colon cancer who presents to the ER today for re-evaluation of abdominal pain and constipation. The patient was seen and evaluated on Sunday her labs and computed tomography scan were unremarkable she was discharged home. Patient reports that despite taking stool softeners and trying to drink laxatives she has persistent abdominal pain. She states that she has passed a small amount of loose stools but no formed bowel movements. No history of bowel obstruction. - Related Data Home Medications Medication Instructions Recorded Confirmed Acetaminophen [Tylenol Arthritis] 650 - 1,300 mg PO Q8H PRN 12/31/19 01/30/20 Clotrimazole Cari [Mycelex 10 mg MUCOUS MEM 5XD 01/30/20 01/30/20 Cari] Lidocaine-Prilocaine Cream [Emla 1 applic TOPICAL DAILY PRN 01/30/20 01/30/20 Cream 2.5%/2.5%] Losartan [Cozaar] 50 mg PO DAILY 01/30/20 01/30/20 Ondansetron [Zofran] 4 mg PO Q12HR PRN 01/30/20 01/30/20 Psyllium Husk [Metamucil] 0.4 gm PO BID 01/30/20 01/30/20 Regorafenib [Stivarga] 40 mg PO DIRECTED 01/30/20 01/30/20 amLODIPine [Norvasc] 5 mg PO DAILY 01/30/20 01/30/20 cloNIDine HCL [Catapres] 0.2 mg PO DAILY PRN 01/30/20 01/30/20 Previous Rx's Medication Instructions Recorded Bisac/NaCl/Nahco3/KCl/Peg 3350 1 kit PO DIRECTED #1 kit 01/30/20 [Peg-Prep Kit] Allergies Allergy/AdvReac Type Severity Reaction Status Date / Time famotidine [From Pepcid] Allergy Rash/Hives Verified 01/30/20 12:37 fluconazole [From Diflucan] Allergy Rash/Hives/ Verified 01/30/20 12:37 Swelling codeine AdvReac Nausea & Verified 01/30/20 12:37 Vomiting naproxen AdvReac Rapid Verified 01/30/20 12:37 Heart Rate Review of Systems ROS Statement: Those systems with pertinent positive or pertinent negative responses have been documented in the HPI. ROS Other: All systems not noted in ROS Statement are negative. Past Medical History Past Medical History: Cancer Additional Past Medical History / Comment(s): stage IV Colon Ca, muscular dystrophy History of Any Multi-Drug Resistant Organisms: None Reported Past Surgical History: Section Additional Past Surgical History / Comment(s): lung surgery, colon surgery, ankle fusion, foot surgery Past Anesthesia/Blood Transfusion Reactions: No Reported Reaction, Postoperative Nausea & Vomiting (PONV) Past Psychological History: No Psychological Hx Reported Smoking Status: Former smoker Past Alcohol Use History: None Reported Past Drug Use History: None Reported - Past Family History Mother Family Medical History: Cancer Additional Family Medical History / Comment(s): Parents of cancer Sister(s) Additional Family Medical History / Comment(s): Musccular dystrophy Brother(s) Family Medical History: Diabetes Mellitus General Exam - General Exam Comments Initial Comments: Physical Exam GENERAL: Patient is well-developed and well-nourished. Patient is nontoxic and well-hydrated and is in no distress. HENT: Normocephalic, Atraumatic. EYES: PERRL, EOMI PULMONARY: Unlabored respirations. CARDIOVASCULAR: There is a regular rate and rhythm without any murmurs gallops or rubs. ABDOMEN: Distended, firm but non-tender SKIN: Skin is clear with no lesions or rashes and otherwise unremarkable. : Deferred NEUROLOGIC: Patient is alert and oriented x3. Moving all extremities spontaneously MUSCULOSKELETAL: Normal extremities with adequate strength and full range of motion. No lower extremity swelling or edema. No calf tenderness. PSYCHIATRIC: Normal psychiatric evaluation. Limitations: no limitations Course Vital Signs 02/02/20 00:57 Temperature 98.9 F Pulse Rate 76 Respiratory 18 Rate Blood Pressure 162/94 O2 Sat by Pulse 97 Oximetry Medical Decision Making - Medical Decision Making The patient was seen and evaluated, history is obtained from patient and review of medical record Labs are obtained and revealed a blue worsening leukocytosis x-ray was unremarkable patient's history and labs a computed tomography scan was obtained and was suggestive of ileus versus mechanical large bowel obstruction At this time patient's not having any vomiting, no indication for NG tube Patient will be admitted the hospital for pain management resuscitation and observation - Lab Data Result diagrams: 02/02/20 01:33 02/02/20 01:33 Lab Results 02/02/20 02/02/20 Range/Units 01:33 01:33 WBC 16.5 H (3.8-10.6) k/uL RBC 4.74 (3.80-5.40) m/uL Hgb 12.0 (11.4-16.0) gm/dL Hct 38.7 (34.0-46.0) % MCV 81.7 (80.0-100.0) fL MCH 25.3 (25.0-35.0) pg MCHC 31.0 (31.0-37.0) g/dL RDW 17.7 H (11.5-15.5) % Plt Count 451 H (150-450) k/uL Neutrophils % 81 % Lymphocytes % 10 % Monocytes % 7 % Eosinophils % 1 % Basophils % 0 % Neutrophils # 13.4 H (1.3-7.7) k/uL Lymphocytes # 1.6 (1.0-4.8) k/uL Monocytes # 1.2 H (0-1.0) k/uL Eosinophils # 0.2 (0-0.7) k/uL Basophils # 0.1 (0-0.2) k/uL Hypochromasia Marked Poikilocytosis Slight Anisocytosis Slight Microcytosis Slight Sodium 132 L (137-145) mmol/L Potassium 4.2 (3.5-5.1) mmol/L Chloride 104 (98-107) mmol/L Carbon Dioxide 21 L (22-30) mmol/L Anion Gap 7 mmol/L BUN 13 (7-17) mg/dL Creatinine 0.43 L (0.52-1.04) mg/dL Est GFR (CKD-EPI)AfAm >90 (>60 ml/min/1.73 sqM) Est GFR (CKD-EPI)NonAf >90 (>60 ml/min/1.73 sqM) Glucose 89 (74-99) mg/dL Calcium 8.4 (8.4-10.2) mg/dL Total Bilirubin 0.6 (0.2-1.3) mg/dL AST 19 (14-36) U/L ALT 10 (4-34) U/L Alkaline Phosphatase 90 (38-126) U/L Total Protein 5.9 L (6.3-8.2) g/dL Albumin 3.4 L (3.5-5.0) g/dL Lipase 30 (23-300) U/L Disposition Clinical Impression: Abdominal pain, Ileus, Metastatic colon cancer in female Disposition: ADMITTED IP TO THIS HOSP Condition: Serious Is patient prescribed a controlled substance at d/c from ED?: No Referrals: Roderick Barclay MD [Primary Care Provider] - 1-2 days
[2020-02-02 01:42] LABS: Anisocytosis Slight; Basophils # (A) 0.1 k/uL (0-0.2); Basophils % (A) 0 %; Eosinophils # (A) 0.2 k/uL (0-0.7); Eosinophils % (A) 1 %; HCT 38.7 % (34.0-46.0); Hypochromasia Marked; Lymphocytes # (A) 1.6 k/uL (1.0-4.8); Lymphocytes % (A) 10 %; MCH 25.3 pg (25.0-35.0); MCV 81.7 fL (80.0-100.0); Mean Platelet Volume 7.8; Microcytosis Slight; Monocytes # (A) 1.2 k/uL (0-1.0); Monocytes % (A) 7 %; Neutrophils # (A) 13.4 k/uL (1.3-7.7); Neutrophils % (A) 81 %; Platelet Count 451 k/uL (150-450); Poikilocytosis Slight; RBC 4.74 m/uL (3.80-5.40); RDW 17.7 % (11.5-15.5); WBC 16.5 k/uL (3.8-10.6)
[2020-02-02 02:07] LABS: ALT 10 U/L (4-34); AST 19 U/L (14-36); African American GFR (CKD) >90 (>60 ml/min/1.73 sqM); Albumin 3.4 g/dL (3.5-5.0); Alkaline Phosphatase 90 U/L (38-126); Anion Gap 7 mmol/L; Blood Urea Nitrogen 13 mg/dL (7-17); Calcium 8.4 mg/dL (8.4-10.2); Carbon Dioxide 21 mmol/L (22-30); Chloride 104 mmol/L (98-107); Glucose 89 mg/dL (74-99); Non-African American GFR(CKD) >90 (>60 ml/min/1.73 sqM); Potassium 4.2 mmol/L (3.5-5.1); Sodium 132 mmol/L (137-145); Total Bilirubin 0.6 mg/dL (0.2-1.3); Total Protein 5.9 g/dL (6.3-8.2)
--- NOTE | 2020-02-02 02:08 | XR ---
EXAMINATION TYPE: XR KUB DATE OF EXAM: 02/02/2020 COMPARISON: NONE HISTORY: Abdominal pain TECHNIQUE: 2 views FINDINGS: There is no sign of intestinal obstruction or pneumoperitoneum. Fecal pattern is normal. Th ere is multilevel spondylotic changes in the thoracic and lumbar spine. There is moderate arthritic c hange in the left hip joint. There is slight blunting of the costophrenic angles. IMPRESSION: Nonacute abdomen. There are probably small pleural effusions.
--- NOTE | 2020-02-02 03:08 | CT ---
EXAMINATION TYPE: CT abdomen pelvis w con DATE OF EXAM: 02/02/2020 COMPARISON: 01/30/2020 HISTORY: Mid to lower abd pain CT DLP: 758.10 mGycm Automated exposure control for dose reduction was used. CONTRAST: Performed with IV Contrast, patient injected with 100 mL of Isovue 300. There is some loculated right pleural fluid. There is irregular pleural thickening in the right lower lobe. There are 2 noncalcified nodules right lower lobe that measure 10 mm. The stomach is intact. S pleen is intact. There is no evidence of pancreatic mass. Liver shows no focal defect. The bile ducts are not dilated. There is rounded area measuring 2 cm in the posterior gallbladder that is probably a gallstone. There is no adrenal mass. Kidneys show satisfactory contrast opacification. There is no hydronephrosi s. Delayed images show normal renal excretion. There is no retroperitoneal adenopathy. Bladder disten ds smoothly. There is no inguinal hernia. There is mildly dilated large bowel with fluid and fecal ma terial. There is no evidence of free air. There are some sigmoid diverticula. There is no sign of div erticulitis. Small bowel is not dilated. There is no ascites. There is multilevel spondylotic changes in the lumbar spine. Bony pelvis is intact. 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 This is more severe on the left side. IMPRESSION: There is increasing dilated large bowel compared to recent exam with fluid levels. This is suggestive of ileus or partial mechanical large bowel obstruction. There is some mild rectal fecal impaction. Multiple right side areas of loculated pleural fluid and thickening consistent with multiple pleural implants and metastatic disease unchanged compared to recent exam. There are 2 noncalcified 10 mm nod ular densities right lower lobe consistent with metastatic disease unchanged.
[2020-02-02] MEDS ORDERED: NALOXONE 0.4 MG/ML 1 ML VIAL IV PRN (04:03)
[2020-02-02] MEDS ORDERED: ONDANSETRON 4 MG/2 ML VIAL IVP PRN (04:03)
[2020-02-02] MEDS: HYDROmorphone 0.5 MG/0.5 ML SYRINGE IVP PRN ×3 (06:07→14:46)
[2020-02-02] MEDS ORDERED: cloNIDine HCL 0.2 MG TAB PO PRN (10:34)
[2020-02-02] MEDS ORDERED: LIDOCAINE-PRILOCAINE 2.5-2.5% CREAM 5 GM TUBE TOPICAL PRN (10:34)
[2020-02-02] MEDS ORDERED: REGORAFENIB PO SCH (10:45)
[2020-02-02] MEDS: PSYLLIUM HUSK 0.4 GM PO SCH ×2 (14:00→20:05)
[2020-02-02] MEDS: amLODIPine 5 MG TAB PO SCH (14:00)
[2020-02-02] MEDS: LOSARTAN 50 MG TAB PO SCH (14:00)
--- NOTE | 2020-02-02 14:03 | P.CONS ---
History of Present Illness - Reason for Consult Consult date: 02/02/20 colon cancer Requesting physician: Fili Orellana - Chief Complaint abd pain, distension - History of Present Illness Mrs. Lira is a very pleasant 74-year-old female patient who is treated by Dr. Jack Vela in the [facility] for metastatic colon cancer. Initially diagnosed in 2016 and underwent surgery. It was early stage and no other treatment was needed. Unfortunately, she had metastatic recurrence and late 2017 in the lung. He had resection of some of the lesions, definitive radiation to the remaining lesion in the left lung in early 2018. Placed on systemic chemotherapy, had 8 cycles of the same. She was switched to Avastin due to side effects. She had side effects related to Avastin said this was discontinued. 07/24 restaging scan showed progression of disease in the liver. Biomarker testing was negative per the patient. She was recommended to start stivarga. She had one cycle in November but, developed pretty profound side effects, requiring prolonged hospitalization and transfer to [facility]. She was discharged in mid December. She was rehospitalized within a few weeks due to progressive diarrhea, loss of appetite, she had not resumed regorafenib at that time. She was discharged, ultimately she resumed stivarga and, after a short time on the medication, she starting having abdominal discomfort and distention. She was in the emergency department 3 days ago, treated for her symptoms and discharged. She returned to the hospital with progressive complaints of increasing abdominal girth, inability to tolerate much oral intake, moderate oral irritation. Denies fevers, chest pain or palpitations, mild shortness of breath on exertion, no cough, dysuria, hematuria, bleeding or swelling. She has not taken stivarga since Sunday Review of Systems 14 point ROS is negative except as stated in HPI Past Medical History Past Medical History: Cancer Additional Past Medical History / Comment(s): stage IV Colon Ca, muscular dystrophy History of Any Multi-Drug Resistant Organisms: None Reported Past Surgical History: Section Additional Past Surgical History / Comment(s): lung surgery, colon surgery, ankle fusion, foot surgery Past Anesthesia/Blood Transfusion Reactions: No Reported Reaction, Postoperative Nausea & Vomiting (PONV) Past Psychological History: No Psychological Hx Reported Smoking Status: Former smoker Past Alcohol Use History: None Reported Past Drug Use History: None Reported - Past Family History Mother Family Medical History: Cancer Additional Family Medical History / Comment(s): Parents of cancer Sister(s) Additional Family Medical History / Comment(s): Musccular dystrophy Brother(s) Family Medical History: Diabetes Mellitus Medications and Allergies Home Medications Medication Instructions Recorded Confirmed Type Acetaminophen [Tylenol Arthritis] 650 - 1,300 mg PO Q8H PRN 12/31/19 02/02/20 History Clotrimazole Cari [Mycelex 10 mg MUCOUS MEM 5XD 01/30/20 02/02/20 History Cari] Lidocaine-Prilocaine Cream [Emla 1 applic TOPICAL DAILY PRN 01/30/20 02/02/20 History Cream 2.5%/2.5%] Losartan [Cozaar] 50 mg PO DAILY 01/30/20 02/02/20 History Ondansetron [Zofran] 4 mg PO BID PRN 01/30/20 02/02/20 History Psyllium Husk [Metamucil] 0.8 gm PO DAILY 01/30/20 02/02/20 History Regorafenib [Stivarga] 80 mg PO DIRECTED 01/30/20 02/02/20 History amLODIPine [Norvasc] 5 mg PO DAILY 01/30/20 02/02/20 History cloNIDine HCL [Catapres] 0.2 mg PO DAILY PRN 01/30/20 02/02/20 History polyethylene glycoL 3350 [Miralax] 17 gm PO DAILY PRN 02/02/20 02/02/20 History Allergies Allergy/AdvReac Type Severity Reaction Status Date / Time famotidine [From Pepcid] Allergy Rash/Hives Verified 02/02/20 11:56 fluconazole [From Diflucan] Allergy Rash/Hives/ Verified 02/02/20 11:56 Swelling codeine AdvReac Nausea & Verified 02/02/20 11:56 Vomiting naproxen AdvReac Rapid Verified 02/02/20 11:56 Heart Rate Physical Exam Vitals: Vital Signs Temp Pulse Pulse Resp BP BP Pulse Ox 02/02/20 11:49 97.8 F 74 18 134/75 96 02/02/20 07:35 98.3 F 75 18 139/81 97 02/02/20 06:03 97.7 F 72 18 166/83 97 08/31/20 04:00 75 18 139/78 99 02/02/20 02:30 75 18 120/70 99 02/02/20 02:13 75 18 142/76 99 02/02/20 00:57 98.9 F 76 18 162/94 97 Intake and Output 02/01/20 02/02/20 02/02/20 22:59 06:59 14:59 Other: Weight 64.41 kg - Constitutional General appearance: average body habitus, cooperative, no acute distress - EENT dry mouth, scattered thrush, superficial/mild ulceration look to lateral tongue, dry lips Eyes: anicteric sclerae, EOMI, poor dentition ENT: hearing grossly normal, thrush - Neck Neck: no lymphadenopathy - Respiratory Respiratory: bilateral: CTA - Cardiovascular Rhythm: regular Heart sounds: normal: S1, S2 Abnormal Heart Sounds: no systolic murmur, no diastolic murmur, no rub, no S3 Gallop, no S4 Gallop, no click, no other leg Peripheral Edema: bilateral: None - Gastrointestinal dullness to percussion in the LLQ General gastrointestinal: no absent bowel sounds, no decreased bowel sounds, distended, hepatomegaly, hyperactive bowel sounds, no normal bowel sounds, no organomegaly, no rigid, no scaphoid, soft, no splenomegaly, no tenderness, no umbilical hernia, no ventral hernia - Integumentary Integumentary: pale - Neurologic Neurologic: CNII-XII intact - Musculoskeletal Musculoskeletal: generalized weakness, strength equal bilaterally - Psychiatric Psychiatric: A&O x's 3, appropriate affect, intact judgment & insight Results CBC & Chem 7: 02/02/20 01:33 02/02/20 01:33 Labs: Abnormal Lab Results - Last 24 Hours (Table) 02/02/20 02/02/20 Range/Units 01:33 01:33 WBC 16.5 H (3.8-10.6) k/uL RDW 17.7 H (11.5-15.5) % Plt Count 451 H (150-450) k/uL Neutrophils # 13.4 H (1.3-7.7) k/uL Monocytes # 1.2 H (0-1.0) k/uL Sodium 132 L (137-145) mmol/L Carbon Dioxide 21 L (22-30) mmol/L Creatinine 0.43 L (0.52-1.04) mg/dL Total Protein 5.9 L (6.3-8.2) g/dL Albumin 3.4 L (3.5-5.0) g/dL Abdominal x-ray: report reviewed CT scan - abdomen: report reviewed CT scan - pelvis: report reviewed Assessment and Plan (1) Ileus Narrative/Plan: CT of the abdomen and pelvis confirming the same. Surgery consulted. Patient is nothing by mouth. Not certain if presentation represents carcinamatosis of the bowel causing ileus or if this is similar to her previous instances of similar presentation. Will await Surgical evaluation and recommendations Current Visit: Yes Status: Acute Priority: High Code(s): K56.7 - ILEUS, UNSPECIFIED SNOMED Code(s): 193380792 (2) Abdominal pain Narrative/Plan: 07/06 above Current Visit: Yes Status: Acute Priority: High Code(s): R10.9 - UNSPECIFIED ABDOMINAL PAIN SNOMED Code(s): 46587468 (3) Metastatic colon cancer in female Narrative/Plan: Patient has only had 2 cycles of stivarga-she has been off medication since Sunday. Patient will continue to hold for now. She will follow up with her Primary Oncologist regarding resumption of stivarga. Current Visit: Yes Status: Chronic Priority: High Code(s): C18.9 - MALIGNANT NEOPLASM OF COLON, UNSPECIFIED SNOMED Code(s): 117192858 (4) Oral candidiasis Narrative/Plan: Very dry mucous membranes and scant look of thrush, medications have been ordered for the same. Current Visit: Yes Status: Acute Priority: Medium Code(s): B37.0 - AMIE BONITA STOMATITIS SNOMED Code(s): 64855937
[2020-02-02] MEDS: ACETAMINOPHEN TAB 500 MG TAB PO PRN (14:45)
[2020-02-02] MEDS: NYSTATIN 100,000 UNIT/ML SUSP 500,000 UNIT/5 ML CUP PO SCH ×4 (14:47→23:09)
[2020-02-02] MEDS: CLOTRIMAZOLE TROCHE 10 MG TROCHE MUCOUS MEM SCH ×4 (14:50→23:10)
--- NOTE | 2020-02-02 16:19 | P.GSCN ---
History of Present Illness Consult date: 02/02/20 History of present illness: CHIEF COMPLAINT: Abdominal pain and constipation HISTORY OF PRESENT ILLNESS: This is a 74-year-old female with metastatic colon cancer with metastatic disease in the lung and liver. She also has a history of muscular dystrophy. She had a bowel resection in 2017 for her colon cancer. She is currently undergoing chemo. The last she took a chemo medication was on Sunday. Patient has been in the ER 3 days ago with complaints of abdominal pain and constipation. She was given enemas and GoLYTELY. She was only able to produce smears of a BM. She has not had a formed stool for over 4 days. She is complaining of abdominal pain with abdominal distention. Decreased appetite. No vomiting. Surgery has been consulted for possible small bowel obstruction. PAST MEDICAL HISTORY: See list. PAST SURGICAL HISTORY: See list. MEDICATIONS: See list. ALLERGIES: See list. SOCIAL HISTORY: No illicit drug use. REVIEW OF SYSTEMS: CONSTITUTIONAL: Denies fever or chills. HEENT: Denies blurred vision, vision changes, or eye pain. Denies hemoptysis ENDOCRINE: Denies heat or cold intolerance. CARDIOVASCULAR: Denies chest pain or pressure. RESPIRATORY: No shortness of breath. GASTROINTESTINAL: Denies abdominal pain. Denies nausea or vomiting. NEURO: Denies history of seizures. PSYCH: No depression or suicidal ideation HEMATOLOGIC: Denies bleeding disorders. LYMPHATIC: The patient denies any lumps and bumps around the neck. GENITOURINARY: Denies any blood in urine or increased urinary frequency. MUSCULOSKELETAL: Denies myalgias. Denies joint swelling. Denies decreased range of motion beyond patients baseline. SKIN: Denies pruitis. Denies rash. PHYSICAL EXAM: VITAL SIGNS: Reviewed GENERAL: Well-developed in no acute distress. HEENT: No sclera icterus. Extraocular movements grossly intact. Moist buccal mucosa. Head is atraumatic, normocephalic. Hears conversational speech. No nasal drainage. NECK: Supple without lymphadenopathy. CHEST: Non-labored respirations and equal bilateral excursions. CARDIOVASCULAR: Regular rate with regular rhythm. Palpable 2+ radial pulses. ABDOMEN: Soft. Distended Nontender MUSCULOSKELETAL: No clubbing or cyanosis. NEUROLOGIC: No focal or lateralizing signs. Cranial nerves II through XII grossly intact. PSYCH: Appropriate affect. Alert and oriented to person, place and time. SKIN: Well perfused. Good skin turgor. LABORATORY DATA: WBC 16.5 hemoglobin is 12 platelets 451 LFTs and normal lipase 30 IMAGING: Computed tomography scan of the abdomen and pelvis with contrast radiologist's report stating there is increasing dilated large bowel. 2 recent exam with fluid levels. This is suggestive of ileus or partial mechanical large bowel obstruction. There is some mild rectal fecal impaction. Multiple right side areas of loculated pleural fluid and thickening consistent with multiple peritoneal implants and metastatic disease unchanged compared to recent exam. There are 2 noncalcified 10 mm nodular densities right lower lobe consistent with metastatic disease unchanged. ASSESSMENT: 1. Ileus versus partial mechanical large bowel obstruction 2. Abdominal pain with constipation 3. History of metastatic colon cancer with bowel resection in 2017. 4. History of muscular dystrophy PLAN: -Keep patient nothing by mouth for now -Continue IV fluids Physician Acidizer note has been reviewed by physician. Signing provider agrees with the documented findings, assessment, and plan of care. Past Medical History Past Medical History: Cancer Additional Past Medical History / Comment(s): stage IV Colon Ca, muscular dystrophy History of Any Multi-Drug Resistant Organisms: None Reported Past Surgical History: Section Additional Past Surgical History / Comment(s): lung surgery, colon surgery, ankle fusion, foot surgery Past Anesthesia/Blood Transfusion Reactions: No Reported Reaction, Postoperative Nausea & Vomiting (PONV) Past Psychological History: No Psychological Hx Reported Smoking Status: Former smoker Past Alcohol Use History: None Reported Past Drug Use History: None Reported - Past Family History Mother Family Medical History: Cancer Additional Family Medical History / Comment(s): Parents of cancer Sister(s) Additional Family Medical History / Comment(s): Musccular dystrophy Brother(s) Family Medical History: Diabetes Mellitus Medications and Allergies Home Medications Medication Instructions Recorded Confirmed Type Acetaminophen [Tylenol Arthritis] 650 - 1,300 mg PO Q8H PRN 12/31/19 02/02/20 History Clotrimazole Cari [Mycelex 10 mg MUCOUS MEM 5XD 01/30/20 02/02/20 History Cari] Lidocaine-Prilocaine Cream [Emla 1 applic TOPICAL DAILY PRN 01/30/20 02/02/20 History Cream 2.5%/2.5%] Losartan [Cozaar] 50 mg PO DAILY 01/30/20 02/02/20 History Ondansetron [Zofran] 4 mg PO BID PRN 01/30/20 02/02/20 History Psyllium Husk [Metamucil] 0.8 gm PO DAILY 01/30/20 02/02/20 History Regorafenib [Stivarga] 80 mg PO DIRECTED 01/30/20 02/02/20 History amLODIPine [Norvasc] 5 mg PO DAILY 01/30/20 02/02/20 History cloNIDine HCL [Catapres] 0.2 mg PO DAILY PRN 01/30/20 02/02/20 History polyethylene glycoL 3350 [Miralax] 17 gm PO DAILY PRN 02/02/20 02/02/20 History Allergies Allergy/AdvReac Type Severity Reaction Status Date / Time famotidine [From Pepcid] Allergy Rash/Hives Verified 02/02/20 11:56 fluconazole [From Diflucan] Allergy Rash/Hives/ Verified 02/02/20 11:56 Swelling codeine AdvReac Nausea & Verified 02/02/20 11:56 Vomiting naproxen AdvReac Rapid Verified 02/02/20 11:56 Heart Rate Surgical - Exam Vital Signs Temp Pulse Resp BP Pulse Ox 98.9 F 76 18 162/94 97 02/02/20 00:57 02/02/20 00:57 02/02/20 00:57 02/02/20 00:57 02/02/20 00:57 Results - Labs 02/02/20 01:33 02/02/20 01:33 Abnormal Lab Results - Last 24 Hours (Table) 02/02/20 02/02/20 Range/Units 01:33 01:33 WBC 16.5 H (3.8-10.6) k/uL RDW 17.7 H (11.5-15.5) % Plt Count 451 H (150-450) k/uL Neutrophils # 13.4 H (1.3-7.7) k/uL Monocytes # 1.2 H (0-1.0) k/uL Sodium 132 L (137-145) mmol/L Carbon Dioxide 21 L (22-30) mmol/L Creatinine 0.43 L (0.52-1.04) mg/dL Total Protein 5.9 L (6.3-8.2) g/dL Albumin 3.4 L (3.5-5.0) g/dL Diabetes panel 02/02/20 Range/Units 01:33 Sodium 132 L (137-145) mmol/L Potassium 4.2 (3.5-5.1) mmol/L Chloride 104 (98-107) mmol/L Carbon Dioxide 21 L (22-30) mmol/L BUN 13 (7-17) mg/dL Creatinine 0.43 L (0.52-1.04) mg/dL Glucose 89 (74-99) mg/dL Calcium 8.4 (8.4-10.2) mg/dL AST 19 (14-36) U/L ALT 10 (4-34) U/L Alkaline Phosphatase 90 (38-126) U/L Total Protein 5.9 L (6.3-8.2) g/dL Albumin 3.4 L (3.5-5.0) g/dL Calcium panel 02/02/20 Range/Units 01:33 Calcium 8.4 (8.4-10.2) mg/dL Albumin 3.4 L (3.5-5.0) g/dL Pituitary panel 02/02/20 Range/Units 01:33 Sodium 132 L (137-145) mmol/L Potassium 4.2 (3.5-5.1) mmol/L Chloride 104 (98-107) mmol/L Carbon Dioxide 21 L (22-30) mmol/L BUN 13 (7-17) mg/dL Creatinine 0.43 L (0.52-1.04) mg/dL Glucose 89 (74-99) mg/dL Calcium 8.4 (8.4-10.2) mg/dL Adrenal panel 02/02/20 Range/Units 01:33 Sodium 132 L (137-145) mmol/L Potassium 4.2 (3.5-5.1) mmol/L Chloride 104 (98-107) mmol/L Carbon Dioxide 21 L (22-30) mmol/L BUN 13 (7-17) mg/dL Creatinine 0.43 L (0.52-1.04) mg/dL Glucose 89 (74-99) mg/dL Calcium 8.4 (8.4-10.2) mg/dL Total Bilirubin 0.6 (0.2-1.3) mg/dL AST 19 (14-36) U/L ALT 10 (4-34) U/L Alkaline Phosphatase 90 (38-126) U/L Total Protein 5.9 L (6.3-8.2) g/dL Albumin 3.4 L (3.5-5.0) g/dL
[2020-02-02] MEDS: SODIUM CHLORIDE 0.9% 1,000 ML IV SCH ×2 (18:23→19:19)
[2020-02-02] MEDS: SALT AND SODA MOUTHWASH 1,000 ML PO SCH ×3 (18:23→23:10)
[2020-02-02] MEDS: HYDROCORTISONE SUPPOSITORY 25 MG SUPP RECTAL SCH ×2 (18:30→21:22)
--- NOTE | 2020-02-02 19:04 | P.HPIM ---
History of Present Illness H&P Date: 02/02/20 Chief Complaint: Abdominal pain History of presenting complaint: This is a pleasant [address] Barclay. Patient's oncologist is Dr. Jack Vela. Patient is a diagnoses of metastatic colon cancer She was initially diagnosed in 2017. She had some surgical resection and was found to have metastasis of the liver and the lungs. Also had some lung surgery for removal of the tumor. Subsequently relapsed In November of this year she started off with oral chemotherapy. Having side effects predominantly nausea vomiting diarrhea. Patient was started on chemotherapy, avastin,stivarga. Because of side effect none of these patient really tolerated. Patient lives in a assisted living [facility]. Normally has a bowel movement every one or 2 days. Able to keep some food down normally. For last 5-6 days having progressive increasing abdominal pain and no bowel movement movements. Abdominal distention. No vomiting slight nausea. Was in the ER 3 nights ago. Given laxatives with small bowel movements and sent home. Patient presents with progressive symptoms. Patient's son and daughter the bedside. Computed tomography scan of the ER showed ileus versus mechanical large bowel obstruction. General surgery Dr. Meraz was consulted. Patient nothing by mouth getting IV fluids. Patient with a baseline uses a wheelchair because of muscular dystrophy. Review of systems: GEN.: decreased appetite, tired EYES: None HEENT: None NECK: None RESPIRATORY: None CARDIOVASCULAR: None GASTROINTESTINAL: As above GENITOURINARY: None MUSCULOSKELETAL: None LYMPHATICS: None HEMATOLOGICAL: None PSYCHIATRY: None NEUROLOGICAL: None Past medical history to include: Stage IV colon cancer with metastatic to the lung and liver, muscular dystrophy for which she uses a wheelchair Social history: At [facility]s assisted living. Smoked for close to 30 as stopped about 15 years ago. Does use electric wheelchair. Physical examination: VITAL SIGNS: 98.9, 76, 18, 162 with 94, 97% room air upon presentation GENERAL: BMI 27.7, laying of breath tired, awake EYES: Pupils equal. Conjunctiva normal. HEENT: External appearance of nose and ears normal, oral cavity dry mucosa NECK: JVD not raised; masses not palpable. HEART: First and second heart sounds are normal; no edema. LUNGS: Respiratory rate normal; decreased breath sounds ABDOMEN: Soft, some distention slight firmness mild tenderness, liver spleen not palpable, no masses palpable. Bowel sounds present PSYCH: Alert and oriented x3; mood and affect tired NEUROLOGICAL: Cranial nerves grossly intact; no facial asymmetry, power and sensation grossly intact. LYMPHATICS: No lymph nodes palpable in the axilla and neck INVESTIGATIONS, reviewed in the clinical context: White count 15.5 hemoglobin 12 platelets 451 potassium 4.2 bun 13 creatinine 0.43 EKG tracing personally reviewed by me-showing flipped T waves in V1 to V3 nonspecific ST segment changes. Computed tomography scan of the abdomen with contrast-increasing dilated large bowel compared to recent exam with fluid levels. Chronic changes of the lung. Assessment: -Acute large bowel ileus versus mechanical obstruction with symptoms coming on over last 5-6 days. Patient has failed enema. No nausea vomiting. Abdomen is somewhat distended and firm. No fever no chills. Dr. Meraz from general surgery's consulted. Did talk to the patient about possible NG tube. We will definitely the decision to surgery. -Metastatic stage IV colon cancer, having failed chemotherapy and other medications. 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 -Mild hyponatremia -Leukocytosis likely reactive. Currently no click or evidence of infection. Plan: Patient's currently nothing by mouth. Getting IV fluids. General surgery was consulted. Care was discussed with the patient and family the bedside. Question also. While prognosis guarded. Also oncology's consulted. Past Medical History Past Medical History: Cancer Additional Past Medical History / Comment(s): stage IV Colon Ca, muscular dystrophy History of Any Multi-Drug Resistant Organisms: None Reported Past Surgical History: Section Additional Past Surgical History / Comment(s): lung surgery, colon surgery, ankle fusion, foot surgery Past Anesthesia/Blood Transfusion Reactions: No Reported Reaction, Postoperative Nausea & Vomiting (PONV) Past Psychological History: No Psychological Hx Reported Smoking Status: Former smoker Past Alcohol Use History: None Reported Past Drug Use History: None Reported - Past Family History Mother Family Medical History: Cancer Additional Family Medical History / Comment(s): Parents of cancer Sister(s) Additional Family Medical History / Comment(s): Musccular dystrophy Brother(s) Family Medical History: Diabetes Mellitus Medications and Allergies Home Medications Medication Instructions Recorded Confirmed Type Acetaminophen [Tylenol Arthritis] 650 - 1,300 mg PO Q8H PRN 12/31/19 02/02/20 History Clotrimazole Cari [Mycelex 10 mg MUCOUS MEM 5XD 01/30/20 02/02/20 History Cari] Lidocaine-Prilocaine Cream [Emla 1 applic TOPICAL DAILY PRN 01/30/20 02/02/20 History Cream 2.5%/2.5%] Losartan [Cozaar] 50 mg PO DAILY 01/30/20 02/02/20 History Ondansetron [Zofran] 4 mg PO BID PRN 01/30/20 02/02/20 History Psyllium Husk [Metamucil] 0.8 gm PO DAILY 01/30/20 02/02/20 History Regorafenib [Stivarga] 80 mg PO DIRECTED 01/30/20 02/02/20 History amLODIPine [Norvasc] 5 mg PO DAILY 01/30/20 02/02/20 History cloNIDine HCL [Catapres] 0.2 mg PO DAILY PRN 01/30/20 02/02/20 History polyethylene glycoL 3350 [Miralax] 17 gm PO DAILY PRN 02/02/20 02/02/20 History Allergies Allergy/AdvReac Type Severity Reaction Status Date / Time famotidine [From Pepcid] Allergy Rash/Hives Verified 02/02/20 11:56 fluconazole [From Diflucan] Allergy Rash/Hives/ Verified 02/02/20 11:56 Swelling codeine AdvReac Nausea & Verified 02/02/20 11:56 Vomiting naproxen AdvReac Rapid Verified 02/02/20 11:56 Heart Rate Physical Exam Vitals: Vital Signs Temp Pulse Pulse Resp BP BP Pulse Ox 02/02/20 07:35 98.3 F 75 18 139/81 97 02/02/20 06:03 97.7 F 72 18 166/83 97 02/02/20 04:00 75 18 139/78 99 02/02/20 02:30 75 18 120/70 99 02/02/20 02:13 75 18 142/76 99 02/02/20 00:57 98.9 F 76 18 162/94 97 Intake and Output 02/01/20 02/02/20 02/02/20 22:59 06:59 14:59 Other: Weight 64.41 kg Results CBC & Chem 7: 02/02/20 01:33 02/02/20 01:33 Labs: Abnormal Lab Results - Last 24 Hours (Table) 02/02/20 02/02/20 Range/Units 01:33 01:33 WBC 16.5 H (3.8-10.6) k/uL RDW 17.7 H (11.5-15.5) % Plt Count 451 H (150-450) k/uL Neutrophils # 13.4 H (1.3-7.7) k/uL Monocytes # 1.2 H (0-1.0) k/uL Sodium 132 L (137-145) mmol/L Carbon Dioxide 21 L (22-30) mmol/L Creatinine 0.43 L (0.52-1.04) mg/dL Total Protein 5.9 L (6.3-8.2) g/dL Albumin 3.4 L (3.5-5.0) g/dL Thrombosis Risk Factor Assmnt - Choose All That Apply Each Factor Represents 1 point: Obesity (BMI >25), Swollen legs (current), Varicose veins Each Risk Factor Represents 2 Points: Age 61-74 years Other congenital or acquired thrombophilia - If yes, enter type in comment: No Thrombosis Risk Factor Assessment Total Risk Factor Score: 5 Thrombosis Risk Factor Assessment Level: High Risk
[2020-02-03] MEDS: HYDROmorphone 0.5 MG/0.5 ML SYRINGE IVP PRN (02:48)
[2020-02-03] MEDS: CLOTRIMAZOLE TROCHE 10 MG TROCHE MUCOUS MEM SCH ×5 (05:42→23:17)
[2020-02-03] MEDS: SALT AND SODA MOUTHWASH 1,000 ML PO SCH ×5 (05:42→23:17)
[2020-02-03] MEDS: SODIUM CHLORIDE 0.9% 1,000 ML IV SCH ×2 (05:46→17:54)
[2020-02-03] MEDS: LOSARTAN 50 MG TAB PO SCH (08:31)
[2020-02-03] MEDS: amLODIPine 5 MG TAB PO SCH (08:31)
[2020-02-03] MEDS: NYSTATIN 100,000 UNIT/ML SUSP 500,000 UNIT/5 ML CUP PO SCH ×4 (08:32→23:17)
[2020-02-03] MEDS: HYDROCORTISONE SUPPOSITORY 25 MG SUPP RECTAL SCH ×2 (08:40→19:57)
[2020-02-03] MEDS: PSYLLIUM HUSK 0.4 GM PO SCH ×2 (08:40→19:57)
[2020-02-03 13:14] VITALS: RESP 16
--- NOTE | 2020-02-03 14:47 | P.PN ---
Subjective Progress Note Date: 02/03/20 CHIEF COMPLAINT: Abdominal pain and constipation HISTORY OF PRESENT ILLNESS: his is a 74-year-old female with metastatic colon cancer with metastatic disease in the lung and liver. Patient presented with abdominal pain and constipation. She was able to have a bowel movement today. She also had evidence of urinary retention Garrett catheter had to be inserted today. She denies any nausea or vomiting. Patient is afebrile. Patient reports that her last colonoscopy was in November and she was informed that it was good. PHYSICAL EXAM: VITAL SIGNS: Reviewed GENERAL: Well-developed in no acute distress. HEENT: No sclera icterus. Extraocular movements grossly intact. Moist buccal mucosa. Head is atraumatic, normocephalic. Hears conversational speech. No nasal drainage. NECK: Supple without lymphadenopathy. CHEST: Non-labored respirations and equal bilateral excursions. CARDIOVASCULAR: Regular rate with regular rhythm. Palpable 2+ radial pulses. ABDOMEN: Soft. Nondistended. Nontender. MUSCULOSKELETAL: No clubbing or cyanosis. NEUROLOGIC: No focal or lateralizing signs. Cranial nerves II through XII grossly intact. PSYCH: Appropriate affect. Alert and oriented to person, place and time. SKIN: Well perfused. Good skin turgor. ASSESSMENT: 1. Ileus versus partial mechanical large bowel obstruction 2. Abdominal pain with constipation 3. History of metastatic colon cancer with bowel resection in 2017. 4. History of muscular dystrophy 5. Urinary retention had Garrett catheter inserted today PLAN: -Advance diet to a clear liquid diet -Continue IV fluids -We will obtain medical records from [facility] where patient had her colonoscopy in November Physician Guest Relations Coordinator note has been reviewed by physician. Signing provider agrees with the documented findings, assessment, and plan of care. Objective - Vital Signs Vital signs: Vital Signs Temp 97.4 F L 02/03/20 12:45 Pulse 73 02/03/20 12:45 Resp 16 02/03/20 12:45 BP 149/85 02/03/20 12:45 Pulse Ox 93 L 02/03/20 12:45 Intake & Output 02/02/20 02/03/20 02/03/20 18:59 06:59 18:59 Intake Total 600 725 Output Total 75 1000 Balance 525 -275 Intake: Intake, IV Titration 600 725 Amount Sodium Chloride 0.9% 1, 600 725 000 ml @ 75 mls/hr IV . [id number] [facility] Rx#:[id number] Oral 0 Output: Urine 75 900 Straight 900 Post Void Residual 100 Other: Voiding Method Incontinent Incontinent Incontinent # Voids 1 1 # Bowel Movements 1 1 - Labs CBC & Chem 7: 02/02/20 01:33 02/02/20 01:33
--- NOTE | 2020-02-03 16:41 | P.PN ---
Subjective Progress Note Date: 02/03/20 Principal diagnosis: ileus, metastatic colon cancer In follow-up today patient feels a little better, her abdomen looks and feels less distended, less discomfort, she had a very large bowel movement this morning, appetite is still pretty poor, nausea is intermittent, no recent vomiting, fevers. Objective - Vital Signs Vital signs: Vital Signs Temp 97.4 F L 02/03/20 12:45 Pulse 73 02/03/20 15:32 Resp 16 02/03/20 15:32 BP 149/85 02/03/20 12:45 Pulse Ox 93 L 02/03/20 12:45 Intake & Output 02/02/20 02/03/20 02/03/20 18:59 06:59 18:59 Intake Total 600 725 600 Output Total 75 1000 75 Balance 525 -275 525 Intake: Intake, IV Titration 600 725 600 Amount Sodium Chloride 0.9% 1, 600 725 600 000 ml @ 75 mls/hr IV . [id number] [facility] Rx#:[id number] Oral 0 Output: Urine 75 900 75 Straight 900 Post Void Residual 100 Other: Voiding Method Incontinent Incontinent Incontinent # Voids 1 1 # Bowel Movements 1 1 - Constitutional Constitutional Comment(s): better color today General appearance: Present: cooperative, no acute distress, thin - EENT Eyes: Present: anicteric sclerae, EOMI ENT: Present: hearing grossly normal, normal oropharynx - Respiratory Respiratory: bilateral: CTA - Cardiovascular Heart sounds: normal: S1, S2 - Peripheral edema leg Peripheral Edema: bilateral: Trace - Gastrointestinal Gastrointestinal Comment(s): less distended, softer, BS + - Neurologic Neurologic: Present: CNII-XII intact - Musculoskeletal Musculoskeletal: Present: generalized weakness - Psychiatric Psychiatric: Present: A&O x's 3, appropriate affect, intact judgment & insight - Labs CBC & Chem 7: 02/02/20 01:33 02/02/20 01:33 Assessment and Plan (1) Ileus Narrative/Plan: CT of the abdomen and pelvis confirming the same. Surgery consulted. Patient is nothing by mouth. Not certain if presentation represents carcinamatosis of the bowel causing ileus or if this is similar to her previous instances of similar presentation. Current Visit: Yes Status: Acute Priority: High Code(s): K56.7 - ILEUS, UNSPECIFIED SNOMED Code(s): 337555798 (2) Abdominal pain Current Visit: Yes Status: Acute Priority: High Code(s): R10.9 - UNSPECIFIED ABDOMINAL PAIN SNOMED Code(s): 71690184 (3) Metastatic colon cancer in female Narrative/Plan: Patient has only had 2 cycles of stivarga-she has been off medication since Sunday. Patient will continue to hold for now. I spoke with her daughter, both patient and daughter had quite a few questions. I told him that I would need to contact the primary Oncologists to get those answers. I contacted Dr. Vela office. I spoke with his nurse. Pt actually missed her December appt so, she resumed Stivarga at a reduced dose on her own. Med office requested, and I faxed, notes from her current hospitalization as well as CT scan reports. I'm pending a call back from the resident professor of early childhood education. I will f/u with tomorrow Current Visit: Yes Status: Chronic Priority: High Code(s): C18.9 - MALIGNA NT NEOPLASM OF COLON, UNSPECIFIED SNOMED Code(s): 729280237 (4) Oral candidiasis Narrative/Plan: Mucous membranes improved, scant look of thrush better today, cont treatments ordered Current Visit: Yes Status: Acute Priority: Medium Code(s): B37.0 - CANDIDAL STOMATITIS SNOMED Code(s): 80102396 Time with Patient: Greater than 30
--- NOTE | 2020-02-03 22:44 | P.PN ---
Progress Note - Text Progress Note Date: 02/03/20 Chief Complaint: Abdominal pain History of presenting complaint: This is a pleasant [address] Barclay. Patient's oncologist is Dr. Jack Vela. Patient is a diagnoses of metastatic colon cancer She was initially diagnosed in 2017. She had some surgical resection and was found to have metastasis of the liver and the lungs. Also had some lung surgery for removal of the tumor. Subsequently relapsed In November of this year she started off with oral chemotherapy. Having side effects predominantly nausea vomiting diarrhea. Patient was started on chemotherapy, avastin,stivarga. Because of side effect none of these patient really tolerated. Patient lives in a assisted living [facility]. Normally has a bowel movement every one or 2 days. Able to keep some food down normally. For last 5-6 days having progressive increasing abdominal pain and no bowel movement movements. Abdominal distention. No vomiting slight nausea. Was in the ER 3 nights ago. Given laxatives with small bowel movements and sent home. Patient presents with progressive symptoms. Patient's son and daughter the bedside. Computed tomography scan of the ER showed ileus versus mechanical large bowel obstruction. General surgery Dr. Meraz was consulted. Patient nothing by mouth getting IV fluids. Patient with a baseline uses a wheelchair because of muscular dystrophy. today-patient has large bowel movement today. Feeling better. He started on clear liquids. Patient's and the daughter visiting today. feeling better. Review of systems: Was done for constitutional, cardiovascular, GI, pulmonary. relevant finding as above Active Medications Acetaminophen (Tylenol Tab) 1,000 mg PO Q8H PRN PRN Reason: Pain Last Admin: 02/02/20 14:45 Dose: 1,000 mg Documented by: Amlodipine Besylate (Norvasc) 5 mg PO DAILY [facility] Last Admin: 02/03/20 08:31 Dose: 5 mg Documented by: Clonidine (Catapres) 0.2 mg PO DAILY PRN PRN Reason: Blood Pressure - High Clotrimazole (Mycelex Cari) 10 mg MUCOUS MEM 5XD [facility] Last Admin: 02/03/20 20:47 Dose: 10 mg Documented by: Hydrocortisone Acetate (Anusol-Hc) 25 mg RECTAL BID [facility] Last Admin: 02/03/20 19:57 Dose: Not Given Documented by: Hydromorphone HCl (Dilaudid) 0.5 mg IVP Q3HR PRN PRN Reason: Moderate Pain Last Admin: 02/03/20 02:48 Dose: 0.5 mg Documented by: Sodium Chloride (Saline 0.9%) 1,000 mls @ 75 mls/hr IV .[id number] [facility] Last Admin: 02/03/20 17:54 Dose: 75 mls/hr Documented by: Lidocaine/Prilocaine (Emla Cream 2.5%/2.5%) 1 applic TOPICAL DAILY PRN PRN Reason: PORT ACCESS Losartan Potassium (Cozaar) 50 mg PO DAILY [facility] Last Admin: 02/03/20 08:31 Dose: 50 mg Documented by: Naloxone HCl (Narcan) 0.2 mg IV Q2M PRN PRN Reason: Opioid Reversal Non-Formulary Medication (Psyllium Husk [Metamucil]) 0.4 gm PO BID [facility] Last Admin: 02/03/20 19:57 Dose: Not Given Documented by: Nystatin (Mycostatin Oral Susp) 500,000 unit PO QID [facility] Last Admin: 02/03/20 17:52 Dose: 500,000 unit Documented by: Ondansetron HCl (Zofran) 4 mg IVP Q8HR PRN PRN Reason: Nausea And Vomiting Last Admin: 02/03/20 08:30 Dose: 4 mg Documented by: Sodium Bicarbonate () 5 ml PO 5XD [facility] Last Admin: 02/03/20 20:47 Dose: 5 ml Documented by: Physical examination: VITAL SIGNS: 97.4, 73, 16, 149/85, 93% GENERAL: propped up in bed, looking better today EYES: Pupils equal. Conjunctiva normal. HEENT: External appearance of nose and ears normal, oral cavity dry mucosa NECK: JVD not raised; masses not palpable. HEART: First and second heart sounds are normal; no edema. LUNGS: Respiratory rate normal; decreased breath sounds ABDOMEN: Soft, decreased distention, soft, liver spleen not palpable, no masses palpable. Bowel sounds present PSYCH: Alert and oriented x3; mood and affect tired INVESTIGATIONS, reviewed in the clinical context: White count 15.5 hemoglobin 12 platelets 451 potassium 4.2 bun 13 creatinine 0.43 EKG tracing personally reviewed by me-showing flipped T waves in V1 to V3 nonspecific ST segment changes. Computed tomography scan of the abdomen with contrast-increasing dilated large bowel compared to recent exam with fluid levels. Chronic changes of the lung. Assessment: -Acute large bowel ileus versus mechanical obstruction with symptoms coming on over last 5-6 days. Patient has failed enema. No nausea vomiting. Abdomen is somewhat distended and firm. No fever no chills. -now patient has a large bowel movement. -Metastatic stage IV colon cancer, having failed chemotherapy and other medications. 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 -Mild hyponatremia -Leukocytosis likely reactive. Currently no clinical evidence of infection. Plan: patient started clear liquids earlier today. advanced to full liquids - this evening. Care was discussed with the patient daughter the bedside. Oncology is following from a cancer standpoint.
[2020-02-04] MEDS: CLOTRIMAZOLE TROCHE 10 MG TROCHE MUCOUS MEM SCH ×5 (05:51→23:41)
[2020-02-04] MEDS: SALT AND SODA MOUTHWASH 1,000 ML PO SCH ×5 (05:52→23:41)
[2020-02-04] MEDS: HYDROCORTISONE SUPPOSITORY 25 MG SUPP RECTAL SCH ×2 (06:28→19:21)
[2020-02-04] MEDS: amLODIPine 5 MG TAB PO SCH (06:38)
[2020-02-04] MEDS: NYSTATIN 100,000 UNIT/ML SUSP 500,000 UNIT/5 ML CUP PO SCH ×4 (06:38→19:34)
[2020-02-04] MEDS: LOSARTAN 50 MG TAB PO SCH (06:38)
[2020-02-04] MEDS: PSYLLIUM HUSK 0.4 GM PO SCH ×2 (11:05→19:32)
[2020-02-04] MEDS: TAMSULOSIN 0.4 MG CAP.ER.24H PO SCH ×2 (11:39→19:34)
[2020-02-04] MEDS: SODIUM CHLORIDE 0.9% 1,000 ML IV SCH (11:41)
--- NOTE | 2020-02-04 14:07 | P.PN ---
Subjective Progress Note Date: 02/04/20 Principal diagnosis: ileus, metastatic colon cancer In follow-up today patient continues to feel a little better, her abdomen looks and feels less distended, less discomfort, she had a very large bowel movement this morning, appetite is still pretty poor, nausea is intermittent, no recent vomiting, fevers. Objective - Vital Signs Vital signs: Vital Signs Temp 98.1 F 02/04/20 11:50 Pulse 70 02/04/20 11:50 Resp 16 02/04/20 11:50 BP 128/75 02/04/20 11:50 Pulse Ox 100 02/04/20 11:50 Intake & Output 02/03/20 02/04/20 02/04/20 18:59 06:59 18:59 Intake Total 600 1040 Output Total 375 800 600 Balance 225 240 -600 Intake: Intake, IV Titration 600 750 Amount Sodium Chloride 0.9% 1, 600 750 000 ml @ 75 mls/hr IV . [id number] [facility] Rx#:[id number] Oral 290 Output: Urine 375 800 600 Straight 800 Other: Voiding Method Incontinent Indwelling Catheter Indwelling Catheter # Voids 1 1 # Bowel Movements 1 1 1 - Constitutional General appearance: Present: average body habitus, cooperative, no acute distress - EENT Eyes: Present: anicteric sclerae, EOMI ENT: Present: hearing grossly normal - Respiratory Respiratory: bilateral: CTA - Cardiovascular Heart sounds: normal: S1, S2 - Peripheral edema leg Peripheral Edema: bilateral: Trace - Gastrointestinal General gastrointestinal: Present: distended, soft - Neurologic Neurologic: Present: CNII-XII intact - Musculoskeletal Musculoskeletal: Present: generalized weakness - Psychiatric Psychiatric: Present: A&O x's 3, appropriate affect, intact judgment & insight - Labs CBC & Chem 7: 02/02/20 01:33 02/02/20 01:33 Assessment and Plan (1) Ileus Narrative/Plan: Surgery following. Not certain if presentation represents carcinamatosis of the bowel causing ileus or if this is similar to her previous instances of similar presentation due to existing disease. Current Visit: Yes Status: Acute Priority: High Code(s): K56.7 - ILEUS, UNSPECIFIED SNOMED Code(s): 430043151 (2) Abdominal pain Narrative/Plan: 2/2 above, much improved s/p BM Current Visit: Yes Status: Acute Priority: High Code(s): R10.9 - UNSPECIFIED ABDOMINAL PAIN SNOMED Code(s): 26138647 (3) Metastatic colon cancer in female Narrative/Plan: Patient has only had 2 cycles of stivarga-she has been off medication since Sunday. Patient will continue to hold. I contacted Dr. Vela office. That office is supposed to be contacting pt daughter Pt asked me some questions about her current line of therapy, potential for any other lines of therapy and overall prognosis. Her current treatment is a much later line of therapy, limited on further options. We discussed palliative care. She is interested. Discussed case with CM and IM. Current Visit: Yes Status: Chronic Priority: High Code(s): C18.9 - MALIGNANT NEOPLASM OF COLON, UNSPECIFIED SNOMED Code(s): 010744755 (4) Oral candidiasis Current Visit: Yes Status: Resolved Priority: Medium Code(s): B37.0 - CANDIDAL STOMATITIS SNOMED Code(s): 02479757
--- NOTE | 2020-02-04 14:08 | P.PN ---
Subjective Progress Note Date: 02/04/20 CHIEF COMPLAINT: Abdominal pain and constipation HISTORY OF PRESENT ILLNESS: his is a 74-year-old female with metastatic colon cancer with metastatic disease in the lung and liver. Patient presented with abdominal pain and constipation. Patient has been having bowel movements. She is sitting at bedside chair. She is tolerating diet. She's afebrile PHYSICAL EXAM: VITAL SIGNS: Reviewed GENERAL: Well-developed in no acute distress. HEENT: No sclera icterus. Extraocular movements grossly intact. Moist buccal mucosa. Head is atraumatic, normocephalic. Hears conversational speech. No nasal dr ainage. NECK: Supple without lymphadenopathy. CHEST: Non-labored respirations and equal bilateral excursions. CARDIOVASCULAR: Regular rate with regular rhythm. Palpable 2+ radial pulses. ABDOMEN: Soft. Nondistended. Nontender. MUSCULOSKELETAL: No clubbing or cyanosis. NEUROLOGIC: No focal or lateralizing signs. Cranial nerves II through XII grossly intact. PSYCH: Appropriate affect. Alert and oriented to person, place and time. SKIN: Well perfused. Good skin turgor. ASSESSMENT: 1. Chemotherapy induced ileus 2. Abdominal pain with constipation 3. History of metastatic colon cancer with bowel resection in 2017. 4. History of muscular dystrophy 5. Urinary retention has Garrett catheter PLAN: -Advance diet as tolerated -No surgical intervention planned -Patient is to follow-up with her own surgeon out of [place] after discharge Physician Social Sciences Professor note has been reviewed by physician. Signing provider agrees with the documented findings, assessment, and plan of care. Objective - Vital Signs Vital signs: Vital Signs Temp 98.1 F 02/04/20 11:50 Pulse 70 02/04/20 11:50 Resp 16 02/04/20 11:50 BP 128/75 02/04/20 11:50 Pulse Ox 100 02/04/20 11:50 Intake & Output 02/03/20 02/04/20 02/04/20 18:59 06:59 18:59 Intake Total 600 1040 Output Total 375 800 600 Balance 225 240 -600 Intake: Intake, IV Titration 600 750 Amount Sodium Chloride 0.9% 1, 600 750 000 ml @ 75 mls/hr IV . [id number] [facility] Rx#:[id number] Oral 290 Output: Urine 375 800 600 Straight 800 Other: Voiding Method Incontinent Indwelling Catheter Indwelling Catheter # Voids 1 1 # Bowel Movements 1 1 1 - Labs CBC & Chem 7: 02/02/20 01:33 02/02/20 01:33
--- NOTE | 2020-02-04 21:16 | P.GSCN ---
History of Present Illness Consult date: 02/04/20 Reason for Consult: Urinary retention History of present illness: Ms. Lira is a a 74-year-old female with hx of metastatic colon ca ncer, currently on chemotherapy. She is admitted to the hospital with abdominal pain constipation. She underwent a CT which showed evidence of ileus and rectal fecal impaction. She also developed urinary retention, requiring burton placement, it's unknown amount of output when burton was placed. Denies any hx of retention or any voiding symptoms at baseline Review of Systems - Constitutional Denies fever, Denies weight loss - Cardiovascular Denies chest pain, Denies shortness of breath - Respiratory Denies cough, Denies 7 - Gastrointestinal Reports abdominal pain, Reports constipation - Genitourinary Genitourinary: Reports difficulty voiding, Denies dysuria, Denies flank pain - Neurological Denies headaches, Denies syncope Past Medical History Past Medical History: Cancer Additional Past Medical History / Comment(s): stage IV Colon Ca, muscular dystrophy History of Any Multi-Drug Resistant Organisms: None Reported Past Surgical History: Section Additional Past Surgical History / Comment(s): lung surgery, colon surgery, ankle fusion, foot surgery Past Anesthesia/Blood Transfusion Reactions: No Reported Reaction, Postoperative Nausea & Vomiting (PONV) Past Psychological History: No Psychological Hx Reported Smoking Status: Former smoker Past Alcohol Use History: None Reported Past Drug Use History: None Reported - Past Family History Mother Family Medical History: Cancer Additional Family Medical History / Comment(s): Parents of cancer Sister(s) Additional Family Medical History / Comment(s): Musccular dystrophy Brother(s) Family Medical History: Diabetes Mellitus Medications and Allergies Home Medications Medication Instructions Recorded Confirmed Type Acetaminophen [Tylenol Arthritis] 650 - 1,300 mg PO Q8H PRN 12/31/19 02/02/20 History Clotrimazole Cari [Mycelex 10 mg MUCOUS MEM 5XD 01/30/20 02/02/20 History Cari] Lidocaine-Prilocaine Cream [Emla 1 applic TOPICAL DAILY PRN 01/30/20 02/02/20 History Cream 2.5%/2.5%] Losartan [Cozaar] 50 mg PO DAILY 01/30/20 02/02/20 History Ondansetron [Zofran] 4 mg PO BID PRN 01/30/20 02/02/20 History Psyllium Husk [Metamucil] 0.8 gm PO DAILY 01/30/20 02/02/20 History Regorafenib [Stivarga] 80 mg PO DIRECTED 01/30/20 02/02/20 History amLODIPine [Norvasc] 5 mg PO DAILY 01/30/20 02/02/20 History cloNIDine HCL [Catapres] 0.2 mg PO DAILY PRN 01/30/20 02/02/20 History polyethylene glycoL 3350 [Miralax] 17 gm PO DAILY PRN 02/02/20 02/02/20 History Allergies Allergy/AdvReac Type Severity Reaction Status Date / Time famotidine [From Pepcid] Allergy Rash/Hives Verified 02/02/20 11:56 fluconazole [From Diflucan] Allergy Rash/Hives/ Verified 02/02/20 11:56 Swelling codeine AdvReac Nausea & Verified 02/02/20 11:56 Vomiting naproxen AdvReac Rapid Verified 02/02/20 11:56 Heart Rate Surgical - Exam Vital Signs Temp Pulse Resp BP Pulse Ox 98.9 F 76 18 162/94 97 02/02/20 00:57 02/02/20 00:57 02/02/20 00:57 02/02/20 00:57 02/02/20 00:57 - General well developed, well nourished, no distress, no pain - Eyes PERRL, normal ocular movement - ENT normal nares, normal mucosa, no hearing loss - Respiratory normal expansion, normal respiratory effort - Genitourinary burton draining clear yellow urine - Psychiatric oriented to time, oriented to person, oriented to place, speech is normal Results - Labs 02/02/20 01:33 02/02/20 01:33 Assessment and Plan Assessment: Ms Mcdowell is 74 yo female with hx of metastatic colon cancer. Admitted to hospital with abdominal pain and constipation. Urology is counsulted for urinary retention. No voiding issues at baseline. Catheter was placed on 02/02. UA from 01/29 is negative for UTI. Patient constipation and fecal impaction is contributing to her voiding issues -Keep burton in place for one week, F/U in urology clinic in one week for TOV
--- NOTE | 2020-02-04 22:30 | P.PN ---
Progress Note - Text Progress Note Date: 02/04/20 Chief Complaint: Abdominal pain History of presenting complaint: This is a pleasant [address] Barclay. Patient's oncologist is Dr. Jack Vela. Patient is a diagnoses of metastatic colon cancer She was initially diagnosed in 2017. She had some surgical resection and was found to have metastasis of the liver and the lungs. Also had some lung surgery for removal of the tumor. Subsequently relapsed In November of this year she started off with oral chemotherapy. Having side effects predominantly nausea vomiting diarrhea. Patient was started on chemotherapy, avastin,stivarga. Because of side effect none of these patient really tolerated. Patient lives in a assisted living [place]. Normally has a bowel movement every one or 2 days. Able to keep some food down normally. For last 5-6 days having progressive increasing abdominal pain and no bowel movement movements. Abdominal distention. No vomiting slight nausea. Was in the ER 3 nights ago. Given laxatives with small bowel movements and sent home. Patient presents with progressive symptoms. Patient's son and daughter the bedside. Computed tomography scan of the ER showed ileus versus mechanical large bowel obstruction. General surgery Dr. Meraz was consulted. Patient nothing by mouth getting IV fluids. Patient with a baseline uses a wheelchair because of muscular dystrophy. Subsequently had a large bowel movement. today-patient having urinary retention. Garrett catheter. Flomax added. Started on a diet. Spoke to Isabel from oncology. She is contacted patient's oncologist. Review of systems: Was done for constitutional, cardiovascular, GI, pulmonary. relevant finding as above Active Medications Acetaminophen (Tylenol Tab) 1,000 mg PO Q8H PRN PRN Reason: Pain Last Admin: 02/02/20 14:45 Dose: 1,000 mg Documented by: Amlodipine Besylate (Norvasc) 5 mg PO DAILY [facility] Last Admin: 02/04/20 06:38 Dose: 5 mg Documented by: Clonidine (Catapres) 0.2 mg PO DAILY PRN PRN Reason: Blood Pressure - High Clotrimazole (Mycelex Cari) 10 mg MUCOUS MEM 5XD [facility] Last Admin: 02/04/20 19:33 Dose: 10 mg Documented by: Hydrocortisone Acetate (Anusol-Hc) 25 mg RECTAL BID [facility] Last Admin: 02/04/20 19:21 Dose: Not Given Documented by: Hydromorphone HCl (Dilaudid) 0.5 mg IVP Q3HR PRN PRN Reason: Moderate Pain Last Admin: 02/03/20 02:48 Dose: 0.5 mg Documented by: Sodium Chloride (Saline 0.9%) 1,000 mls @ 75 mls/hr IV .[id number] [facility] Last Admin: 02/04/20 11:41 Dose: 75 mls/hr Documented by: Lidocaine/Prilocaine (Emla Cream 2.5%/2.5%) 1 applic TOPICAL DAILY PRN PRN Reason: PORT ACCESS Losartan Potassium (Cozaar) 50 mg PO DAILY [facility] Last Admin: 02/04/20 06:38 Dose: 50 mg Documented by: Naloxone HCl (Narcan) 0.2 mg IV Q2M PRN PRN Reason: Opioid Reversal Non-Formulary Medication (Psyllium Husk [Metamucil]) 0.4 gm PO BID [facility] Last Admin: 02/04/20 19:32 Dose: Not Given Documented by: Nystatin (Mycostatin Oral Susp) 500,000 unit PO QID [facility] Last Admin: 02/04/20 19:34 Dose: 500,000 unit Documented by: Ondansetron HCl (Zofran) 4 mg IVP Q8HR PRN PRN Reason: Nausea And Vomiting Last Admin: 02/03/20 08:30 Dose: 4 mg Documented by: Sodium Bicarbonate () 5 ml PO 5XD [facility] Last Admin: 02/04/20 19:34 Dose: 5 ml Documented by: Tamsulosin HCl (Flomax) 0.4 mg PO BID [facility] Last Admin: 02/04/20 19:34 Dose: 0.4 mg Documented by: Physical examination: VITAL SIGNS: 98.1, 70, 16, 120/75, 100% room air GENERAL: Sitting up in a chair, comfortable EYES: Pupils equal. Conjunctiva normal. HEENT: External appearance of nose and ears normal, oral cavity dry mucosa NECK: JVD not raised; masses not palpable. HEART: First and second heart sounds are normal; no edema. LUNGS: Respiratory rate normal; decreased breath sounds ABDOMEN: Soft, decreased distention, soft, liver spleen not palpable, no masses palpable. Bowel sounds present. Garrett catheter PSYCH: Alert and oriented x3; mood and affect tired INVESTIGATIONS, reviewed in the clinical context: White count 15.5 hemoglobin 12 platelets 451 potassium 4.2 bun 13 creatinine 0.43 EKG tracing personally reviewed by me-showing flipped T waves in V1 to V3 nonspecific ST segment changes. Computed tomography scan of the abdomen with contrast-increasing dilated large bowel compared to recent exam with fluid levels. Chronic changes of the lung. Assessment: -Acute large bowel ileus versus mechanical obstruction with symptoms coming on over last 5-6 days. Patient has failed enema. No nausea vomiting. Abdomen is somewhat distended and firm. No fever no chills. -now patient has a large bowel movement. -Metastatic stage IV colon cancer, having failed chemotherapy and other medications. 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 -Mild hyponatremia -Leukocytosis likely reactive. Currently no clinical evidence of infection. Plan: Eating fairly well. Anyway from 50-75%. Is on Flomax. Plan to discharge the patient tomorrow. Urology saw the patient later in the day. To keep the Garrett in. Continue discussed with the patient.
[2020-02-05] MEDS: HYDROmorphone 0.5 MG/0.5 ML SYRINGE IVP PRN (01:30)
[2020-02-05] MEDS: SODIUM CHLORIDE 0.9% 1,000 ML IV SCH ×2 (01:32→11:25)
[2020-02-05] MEDS: CLOTRIMAZOLE TROCHE 10 MG TROCHE MUCOUS MEM SCH ×4 (05:16→21:30)
[2020-02-05] MEDS: SALT AND SODA MOUTHWASH 1,000 ML PO SCH ×4 (05:16→21:30)
[2020-02-05] MEDS: LOSARTAN 50 MG TAB PO SCH (07:54)
[2020-02-05] MEDS: TAMSULOSIN 0.4 MG CAP.ER.24H PO SCH ×2 (07:54→21:30)
[2020-02-05] MEDS: amLODIPine 5 MG TAB PO SCH (07:54)
[2020-02-05] MEDS: HYDROCORTISONE SUPPOSITORY 25 MG SUPP RECTAL SCH ×2 (07:55→21:25)
[2020-02-05] MEDS: NYSTATIN 100,000 UNIT/ML SUSP 500,000 UNIT/5 ML CUP PO SCH ×4 (07:55→21:38)
[2020-02-05] MEDS: PSYLLIUM HUSK 100% 6 GM PACKET PO SCH ×2 (07:55→21:30)
[2020-02-05 08:05] LABS: Anisocytosis Slight; HCT 36.6 % (34.0-46.0); HGB 10.7 gm/dL (11.4-16.0); Hypochromasia Marked; MCH 24.8 pg (25.0-35.0); MCHC 29.4 g/dL (31.0-37.0); MCV 84.4 fL (80.0-100.0); Platelet Count 341 k/uL (150-450); RBC 4.34 m/uL (3.80-5.40); RDW 18.3 % (11.5-15.5); WBC 9.4 k/uL (3.8-10.6)
[2020-02-05 08:29] LABS: African American GFR (CKD) >90 (>60 ml/min/1.73 sqM); Anion Gap 7 mmol/L; Blood Urea Nitrogen 4 mg/dL (7-17); Calcium 7.7 mg/dL (8.4-10.2); Carbon Dioxide 21 mmol/L (22-30); Chloride 109 mmol/L (98-107); Glucose 84 mg/dL (74-99); Non-African American GFR(CKD) >90 (>60 ml/min/1.73 sqM); Potassium 3.7 mmol/L (3.5-5.1); Sodium 137 mmol/L (137-145)
--- NOTE | 2020-02-05 18:16 | P.PN ---
Progress Note - Text Progress Note Date: 02/05/20 Chief Complaint: Abdominal pain History of presenting complaint: This is a pleasant [address] Barclay. Patient's oncologist is Dr. Jack Vela. Patient is a diagnoses of metastatic colon cancer She was initially diagnosed in 2017. She had some surgical resection and was found to have metastasis of the liver and the lungs. Also had some lung surgery for removal of the tumor. Subsequently relapsed In November of this year she started off with oral chemotherapy. Having side effects predominantly nausea vomiting diarrhea. Patient was started on chemotherapy, avastin,stivarga. Because of side effect none of these patient really tolerated. Patient lives in a assisted living [facility]. Normally has a bowel movement every one or 2 days. Able to keep some food down normally. For last 5-6 days having progressive increasing abdominal pain and no bowel movement movements. Abdominal distention. No vomiting slight nausea. Was in the ER 3 nights ago. Given laxatives with small bowel movements and sent home. Patient presents with progressive symptoms. Patient's son and daughter the bedside. Computed tomography scan of the ER showed ileus versus mechanical large bowel obstruction. General surgery Dr. Meraz was consulted. Patient nothing by mouth getting IV fluids. Patient with a baseline uses a wheelchair because of muscular dystrophy. Subsequently had a large bowel movement. having urinary retention. Garrett catheter. Flomax added. seen by Dr. Cyr from urology. To keep the Garrett catheter in. today-tolerating. Pain control. Garrett catheter in place.up in a chair. Review of systems: Was done for constitutional, cardiovascular, GI, pulmonary. relevant finding as above Active Medications Acetaminophen (Tylenol Tab) 1,000 mg PO Q8H PRN PRN Reason: Pain Last Admin: 02/02/20 14:45 Dose: 1,000 mg Documented by: Amlodipine Besylate (Norvasc) 5 mg PO DAILY [facility] Last Admin: 02/05/20 07:54 Dose: 5 mg Documented by: Clonidine (Catapres) 0.2 mg PO DAILY PRN PRN Reason: Blood Pressure - High Clotrimazole (Mycelex Cari) 10 mg MUCOUS MEM 5XD [facility] Last Admin: 02/05/20 15:12 Dose: 10 mg Documented by: Hydrocortisone Acetate (Anusol-Hc) 25 mg RECTAL BID [facility] Last Admin: 02/05/20 07:55 Dose: Not Given Documented by: Hydromorphone HCl (Dilaudid) 0.5 mg IVP Q3HR PRN PRN Reason: Moderate Pain Last Admin: 02/05/20 01:30 Dose: 0.5 mg Documented by: Sodium Chloride (Saline 0.9%) 1,000 mls @ 75 mls/hr IV .[id number] [facility] Last Admin: 02/05/20 11:25 Dose: 75 mls/hr Documented by: Lidocaine/Prilocaine (Emla Cream 2.5%/2.5%) 1 applic TOPICAL DAILY PRN PRN Reason: PORT ACCESS Losartan Potassium (Cozaar) 50 mg PO DAILY [facility] Last Admin: 02/05/20 07:54 Dose: 50 mg Documented by: Naloxone HCl (Narcan) 0.2 mg IV Q2M PRN PRN Reason: Opioid Reversal Nystatin (Mycostatin Oral Susp) 500,000 unit PO QID [facility] Last Admin: 02/05/20 17:02 Dose: 500,000 unit Documented by: Ondansetron HCl (Zofran) 4 mg IVP Q8HR PRN PRN Reason: Nausea And Vomiting Last Admin: 02/03/20 08:30 Dose: 4 mg Documented by: Psyllium Hydrophilic Mucilloid (Metamucil) 6 gm PO BID [facility] Last Admin: 02/05/20 07:55 Dose: 6 gm Documented by: Sodium Bicarbonate () 5 ml PO 5XD [facility] Last Admin: 02/05/20 15:11 Dose: 5 ml Documented by: Tamsulosin HCl (Flomax) 0.4 mg PO BID [facility] Last Admin: 02/05/20 07:54 Dose: 0.4 mg Documented by: Physical examination: VITAL SIGNS: 97.5, 72, 16, 129/80, 97% room air GENERAL: Sitting up in a chair, comfortable EYES: Pupils equal. Conjunctiva normal. HEENT: External appearance of nose and ears normal, oral cavity dry mucosa NECK: JVD not raised; masses not palpable. HEART: First and second heart sounds are normal; no edema. LUNGS: Respiratory rate normal; decreased breath sounds ABDOMEN: Soft, decreased distention, soft, liver spleen not palpable, no masses palpable. Bowel sounds present. Garrett catheter PSYCH: Alert and oriented x3; mood and affect tired INVESTIGATIONS, reviewed in the clinical context: White count 9.4 hemoglobin 10.7 potassium 3.7 creatinine 0.35 Previous testing White count 15.5 hemoglobin 12 platelets 451 potassium 4.2 bun 13 creatinine 0.43 EKG tracing personally reviewed by me-showing flipped T waves in V1 to V3 nonspecific ST segment changes. Computed tomography scan of the abdomen with contrast-increasing dilated large bowel compared to recent exam with fluid levels. Chronic changes of the lung. Assessment: -Acute large bowel ileus versus mechanical obstruction with symptoms coming on over last 5-6 days. Patient has failed enema. No nausea vomiting. Abdomen is somewhat distended and firm. No fever no chills. -now patient has a large bowel movement. -Metastatic stage IV colon cancer, having failed chemotherapy and other medications. 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 -Mild hyponatremia -Leukocytosis likely reactive. Currently no clinical evidence of infection. -Normocytic anemia 62 malignancy. No evidence of bleeding. -Mild hyponatremia on presentation. Improved -bladder outflow obstruction. On Garrett catheter. Plan: continue current medication. Awaiting authorizationto go to [facility]. Discussed with the patient. Questions answered. Discussed with clinical social work therapist and hospice case manager. prognosis guarded.
[2020-02-05] MEDS: ACETAMINOPHEN TAB 500 MG TAB PO PRN (22:29)
[2020-02-06] MEDS: SALT AND SODA MOUTHWASH 1,000 ML PO SCH ×3 (00:46→11:16)
[2020-02-06] MEDS: CLOTRIMAZOLE TROCHE 10 MG TROCHE MUCOUS MEM SCH ×3 (00:46→11:16)
[2020-02-06] MEDS: SODIUM CHLORIDE 0.9% 1,000 ML IV SCH (00:46)
[2020-02-06 04:58] VITALS: BP 139/79; PULSE 71; TEMP 97.6
[2020-02-06] MEDS: LOSARTAN 50 MG TAB PO SCH (08:00)
[2020-02-06] MEDS: TAMSULOSIN 0.4 MG CAP.ER.24H PO SCH (08:00)
[2020-02-06] MEDS: NYSTATIN 100,000 UNIT/ML SUSP 500,000 UNIT/5 ML CUP PO SCH ×2 (08:00→11:16)
[2020-02-06] MEDS: amLODIPine 5 MG TAB PO SCH (08:00)
[2020-02-06] MEDS: HYDROCORTISONE SUPPOSITORY 25 MG SUPP RECTAL SCH (08:01)
[2020-02-06] MEDS: PSYLLIUM HUSK 100% 6 GM PACKET PO SCH (08:01)
--- NOTE | 2020-02-06 12:45 | P.DS ---
Providers Date of admission: 02/02/20 04:05 Expected date of discharge: 02/06/20 Attending physician: Fili Orellana Consults: 02/02/20 10:09 Consult Physician Routine Consulting Provider: Get Nguyen Consult Reason/Comments: metastatic cancer Do you want consulting provider notified?: Yes 02/04/20 11:24 Consult Physician Routine Consulting Provider: Vinod Cyr Consult Reason/Comments: urine retention Do you want consulting provider notified?: Yes Primary care physician: [facility] Course: Chief Complaint: Abdominal pain History of presenting complaint: This is a pleasant [address] Barclay. Patient's oncologist is Dr. Jack Vela. Patient is a diagnoses of metastatic colon cancer She was initially diagnosed in 2017. She had some surgical resection and was found to have metastasis of the liver and the lungs. Also had some lung surgery for removal of the tumor. Subsequently relapsed In November of this year she started off with oral chemotherapy. Having side effects predominantly nausea vomiting diarrhea. Patient was started on chemotherapy, avastin,stivarga. Because of side effect none of these patient really tolerated. Patient lives in a assisted living [facility]. Normally has a bowel movement every one or 2 days. Able to keep some food down normally. For last 5-6 days having progressive increasing a bdominal pain and no bowel movement movements. Abdominal distention. No vomiting slight nausea. Was in the ER 3 nights ago. Given laxatives with small bowel movements and sent home. Patient presents with progressive symptoms. Patient's son and daughter the bedside. Computed tomography scan of the ER showed ileus versus mechanical large bowel obstruction. General surgery Dr. Meraz was consulted. Patient nothing by mouth getting IV fluids. Patient with a baseline uses a wheelchair because of muscular dystrophy. Subsequently had a large bowel movement. having urinary retention. Garrett catheter. Flomax added. seen by Dr. Cyr from urology. To keep the Garrett catheter in. today-sitting up. Tolerating diet. Tired. We will follow with her oncologist. Consultation: Dr. Nguyen from oncology Dr. pierce adamson from urology Dr. Meraz from general surgery Physical examination: VITAL SIGNS: 97.6, 71, 16, 139/79, 95% on room air GENERAL: Sitting up in bed, comfortable EYES: Pupils equal. Conjunctiva normal. HEENT: External appearance of nose and ears normal, oral cavity dry mucosa NECK: JVD not raised; masses not palpable. HEART: First and second heart sounds are normal; no edema. LUNGS: Respiratory rate normal; decreased breath sounds ABDOMEN: Soft, decreased distention, soft, liver spleen not palpable, no masses palpable. Bowel sounds present. Garrett catheter PSYCH: Alert and oriented x3; mood and affect tired INVESTIGATIONS, reviewed in the clinical context: White count 9.4 hemoglobin 10.7 potassium 3.7 creatinine 0.35 Previous testing White count 15.5 hemoglobin 12 platelets 451 potassium 4.2 bun 13 creatinine 0.43 EKG tracing personally reviewed by me-showing flipped T waves in V1 to V3 nonspecific ST segment changes. Computed tomography scan of the abdomen with contrast-increasing dilated large bowel compared to recent exam with fluid levels. Chronic changes of the lung. Assessment: -Acute large bowel ileus versus mechanical obstruction with symptoms coming on over last 5-6 days. Patient has failed enema. No nausea vomiting. Abdomen is somewhat distended and firm. No fever no chills. -now patient has a large bowel movement. -Metastatic stage IV colon cancer, having failed chemotherapy and other medications. 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 -Mild hyponatremia -Leukocytosis likely reactive. Currently no clinical evidence of infection. -Normocytic anemia 62 malignancy. No evidence of bleeding. -Mild hyponatremia on presentation. Improved -bladder outflow obstruction. On Garrett catheter. Disposition: [facility] Patient Condition at Discharge: Stable Plan - Discharge Summary Discharge Rx Participant: Yes New Discharge Prescriptions: New Hydrocortisone Suppository [Anusol-Hc] 25 mg RECTAL BID supp Tamsulosin [Flomax] 0.4 mg PO BID cap.er.24h Psyllium Husk 100% [Metamucil Packet] 6 gm PO BID packet Nystatin 100,000 Unit/ml Susp [Mycostatin Oral Susp] 500,000 unit PO QID ml Continue Acetaminophen [Tylenol Arthritis] 650 - 1,300 mg PO Q8H PRN PRN Reason: Pain cloNIDine HCL [Catapres] 0.2 mg PO DAILY PRN PRN Reason: Blood Pressure - High Ondansetron [Zofran] 4 mg PO BID PRN PRN Reason: Nausea And Vomiting Lidocaine-Prilocaine Cream [Emla Cream 2.5%/2.5%] 1 applic TOPICAL DAILY PRN PRN Reason: PORT ACCESS Losartan [Cozaar] 50 mg PO DAILY Clotrimazole Cari [Mycelex Cari] 10 mg MUCOUS MEM 5XD amLODIPine [Norvasc] 5 mg PO DAILY Discontinued Psyllium Husk [Metamucil] 0.8 gm PO DAILY Regorafenib [Stivarga] 80 mg PO DIRECTED polyethylene glycoL 3350 [Miralax] 17 gm PO DAILY PRN PRN Reason: Constipation Discharge Medication List Acetaminophen [Tylenol Arthritis] 650 - 1,300 mg PO Q8H PRN 12/31/19 [History] Clotrimazole Cari [Mycelex Cari] 10 mg MUCOUS MEM 5XD 01/30/20 [History] Lidocaine-Prilocaine Cream [Emla Cream 2.5%/2.5%] 1 applic TOPICAL DAILY PRN 01/30/20 [History] Losartan [Cozaar] 50 mg PO DAILY 01/30/20 [History] Ondansetron [Zofran] 4 mg PO BID PRN 01/30/20 [History] amLODIPine [Norvasc] 5 mg PO DAILY 01/30/20 [History] cloNIDine HCL [Catapres] 0.2 mg PO DAILY PRN 01/30/20 [History] Hydrocortisone Suppository [Anusol-Hc] 25 mg RECTAL BID supp 02/05/20 [Rx] Nystatin 100,000 Unit/ml Susp [Mycostatin Oral Susp] 500,000 unit PO QID ml 02/05/20 [Rx] Psyllium Husk 100% [Metamucil Packet] 6 gm PO BID packet 02/05/20 [Rx] Tamsulosin [Flomax] 0.4 mg PO BID cap.er.24h 02/05/20 [Rx] Follow up Appointment(s)/Referral(s): oncology, [Other] - 10 Days ( Office to call you with appt. time and date.) Vinod Cyr MD [STAFF PHYSICIAN] - 02/11/20 9:20 am Roderick Barclay MD [Primary Care Provider] - 02/11/20 1:30 pm Activity/Diet/Wound Care/Special Instructions: [facility]-
--- NOTE | 2020-02-10 00:16 | CDI ---
Documentation Clarification Form Date: 02/10/2020 From: Joe Montanez Phone: If you have a question about this query, please contact Ema Lyles, Dependency Counselor at [phone] between 8am and 5pm. Admit Date: 02/02/2020 Discharge Date: 02/06/2020 Patient Name: Dora Lira Visit Number: [id number] ATTENTION: The Clinical Documentation Specialists (CDI) and [facility] Coding Staff appreciate your assistance in clarifying documentation. Please respond to the clarification below the line at the bottom and electronically sign. The CDI & [facility] Coding staff will review the response and follow-up if needed. Please note: Queries are made part of the Legal Health Record. If you have any questions, please contact the author of this message via ITS. Dear Fili Brewer MD., The patient presented with the Acute large bowel ileus versus mechanical obstruction with symptoms coming on over last 5-6 days. History/Risk Factors: Colon cancer, Liver, Lung Cancer Clinical Indicators: Ileus, Hyponatremia Radiology findings:There is increasing dilated large bowel compared to recent exam with fluid levels.This is suggestive of ileus or partial mechanical large bowel obstruction.There is some mild rectal fecal impaction. Acute large bowel ileus versus mechanical obstruction with symptoms coming on over last 5-6 days.Patient has failed enema.No nausea vomiting.Abdomen is somewhat distended and firm.No fever no chills.-now patient has a largebowel movement. In your professional opinion, can you please clarify Large mechanical obstruction related to Stage 4 Colon Cancer? YES NO Other, please specify Unable to determine NO MTDD
== END 2020-02-06 13:44 | DRG 389 ==
LOC: EC 00:56 → 6PED 04:05 → 5NMEDONC 07:38 → 6NMEDSUR 02-04 06:46
PROVIDERS: ADMIT Hospitalist; ATTEND Hospitalist
DX: K56.699 Other intestinal obstruction unspecified as to partial versus complete obstruction (principal); C18.9 Malignant neoplasm of colon, unspecified; E87.1 Hypo-osmolality and hyponatremia; B37.0 Candidal stomatitis; C78.7 Secondary malignant neoplasm of liver and intrahepatic bile duct; G71.00 Muscular dystrophy, unspecified; T45.1X5A Adverse effect of antineoplastic and immunosuppressive drugs, initial encounter; R26.9 Unspecified abnormalities of gait and mobility; R33.9 Retention of urine, unspecified; K56.41 Fecal impaction; Z20.828 Contact with and (suspected) exposure to other viral communicable diseases; N32.0 Bladder-neck obstruction; D51.9 Vitamin B12 deficiency anemia, unspecified; Z88.5 Allergy status to narcotic agent; Z88.8 Allergy status to other drugs, medicaments and biological substances; Z79.899 Other long term (current) drug therapy; Z98.891 History of uterine scar from previous surgery; Z90.49 Acquired absence of other specified parts of digestive tract; Z98.1 Arthrodesis status; Z98.890 Other specified postprocedural states; Z87.891 Personal history of nicotine dependence; Z80.9 Family history of malignant neoplasm, unspecified; Z82.69 Family history of other diseases of the musculoskeletal system and connective tissue; Z83.3 Family history of diabetes mellitus; Z99.3 Dependence on wheelchair
CPT/HCPCS: 36415; 74018; 74177; 80048; 80053; 81001; 82150; 82550; 83605; 83690; 85025; 85027; 93005; 96361; 96374; 96375; 99284; 99285

== ENCOUNTER → 2020-03-02 | Outpatient (CLI) | payer MEDICARE, OTHER ==
[2020-03-02 10:42] LABS: African American GFR (CKD) >90 (>60 ml/min/1.73 sqM); Blood Urea Nitrogen 16 mg/dL (7-17); Non-African American GFR(CKD) >90 (>60 ml/min/1.73 sqM)
--- NOTE | 2020-03-02 13:40 | CT ---
EXAMINATION TYPE: CT chest w con DATE OF EXAM: 03/02/2020 COMPARISON: None HISTORY: Colon cancer, METS chest and liver CT DLP: 253.7 mGycm, Automated exposure control for dose reduction was used. CONTRAST: Performed injected with 100 mL of Isovue 300. TECHNIQUE: Axial images were obtained at 5 mm thick sections. Reconstructed images are reviewed on [facility] computer in the coronal plane. FINDINGS: Portion of the thyroid visualized is normal. There is a 2.8 x 3.5 x 1.7 cm mass along the periphery of the left upper lung field. There is a 1 x 1.3 cm anterior right upper peripheral based density. A large soft tissue density is along the anterior right upper lung field. Series 3 image 17. This is approximately 2 cm deeps. This extends along the mediastinal border and along the anterior chest bord er. On lung windows there are additional nodules including a 1.1 cm nodule anterior left lung, series 4 i mage 29r, right perihilar region series 4 image 29. Right mediastinal wall mass measuring 1.6 cm. Ser ies 4 image 36 mediastinal mass measuring 2 cm, series 3 image 40 lung base nodules at the right lung base measuring 1.3 and 0.9 cm. Series 4 image 40 There is a chest wall mass which may be along the diaphragm measuring 6.6 x 2.9 cm. Series 3 image 47 displacing the liver. There is an additional posterior chest wall mass best visualized on the ernst l plane image measuring 15.5 cm craniocaudal by 7.2 cm transverse by 4.2 cm maximum AP thickness There is a Posterior chest wall mass, series 3 image 36 measuring 2.4 x 3.4 cm. Small right pleural effusion is present. Small amount of pleural thickening is present through the ri ght lung such as the anterior lateral aspect near the lung base with thickness of 1 cm right series 3 image 31. There is a 1.2 cm right peribronchial lymph node near the level of the edgar. The ascending aorta d iameter at the level of the main pulmonary artery is 3.2 cm. The main pulmonary artery diameter at t he bifurcation is 2.[address] sections are obtained through the upper abdomen. Left adrenal gland is mildly thickened at 1.2 cm. IMPRESSIONS: 1. Multiple solid lesions including a left apical mass, right diaphragm mass, right posterior chest w all mass and multiple pleural-based nodules discussed above. 2. Enlarged right peribronchial lymph node
== END | disposition home or self-care (01) ==
LOC: RADPROMAIN 09:26
PROVIDERS: ATTEND Internal Medicine Hematology & Oncology
DX: R91.8 Other nonspecific abnormal finding of lung field (principal); R59.9 Enlarged lymph nodes, unspecified; C78.00 Secondary malignant neoplasm of unspecified lung; C78.7 Secondary malignant neoplasm of liver and intrahepatic bile duct; C18.7 Malignant neoplasm of sigmoid colon; Z88.5 Allergy status to narcotic agent; Z88.8 Allergy status to other drugs, medicaments and biological substances; Z88.1 Allergy status to other antibiotic agents; Z88.6 Allergy status to analgesic agent
CPT/HCPCS: 82565; 84520; 71260; J1642; Q9967

== ENCOUNTER 2020-03-27 21:27 | Inpatient (IN) | payer MEDICARE, OTHER ==
[2020-03-27] MEDS ORDERED: ONDANSETRON 4 MG/2 ML VIAL IVP STA (21:51)
[2020-03-27] MEDS ORDERED: SODIUM CHLORIDE 0.9% 1,000 ML IV STA ×2 (21:51)
--- NOTE | 2020-03-27 21:54 | ED ---
Dizziness HPI - General Source: patient, EMS, RN notes reviewed, old records reviewed Mode of arrival: EMS Limitations: no limitations <Shirley Rosenbaum - Last Filed: 03/28/20 00:48> <Kavon High - Last Filed: 03/28/20 07:49> - General Chief Complaint: Dizziness Stated Complaint: dizziness,nausea Time Seen by Provider: 03/27/20 21:30 - History of Present Illness Initial Comments: Patient is a 74-year-old female who presents the emergency department today for evaluation of dizziness lightheadedness complaining of nausea. Patient reports that she's been having nausea symptoms for the past week since having her chemotherapy. She does have stage IV colon cancer. Patient denies any current chest pain, headache or shortness of breath. She states that she just feels weak and lightheaded. Patient reports no vomiting. She did have episodes of diarrhea this week which stopped with Imodium. (Shirley Rosenbaum) - Related Data Home Medications Medication Instructions Recorded Confirmed Acetaminophen [Tylenol Arthritis] 650 - 1,300 mg PO Q8H PRN 12/31/19 03/28/20 Lidocaine-Prilocaine Cream [Emla 1 applic TOPICAL DAILY PRN 01/30/20 03/28/20 Cream 2.5%/2.5%] Ondansetron [Zofran] 4 mg PO BID PRN 01/30/20 03/28/20 Hydrocortisone Suppository 25 mg RECTAL BID PRN 03/28/20 03/28/20 [Anusol-Hc] Nystatin/Maalox/Benadryl Compound 5 ml PO QID 03/28/20 03/28/20 1:1 Psyllium Husk 100% [Metamucil 6 gm PO BID PRN 03/28/20 03/28/20 Packet] Sennosides [Senna] 8.6 mg PO BID PRN 03/28/20 03/28/20 Allergies Allergy/AdvReac Type Severity Reaction Status Date / Time famotidine [From Pepcid] Allergy Rash/Hives Verified 03/28/20 00:21 fluconazole [From Diflucan] Allergy Rash/Hives/ Verified 03/28/20 00:21 Swelling codeine AdvReac Nausea & Verified 03/28/20 00:21 Vomiting naproxen AdvReac Rapid Verified 03/28/20 00:21 Heart Rate Review of Systems ROS Other: All systems not noted in ROS Statement are negative. <Shirley Rosenbaum - Last Filed: 03/28/20 00:48> ROS Other: All systems not noted in ROS Statement are negative. <Kavon High - Last Filed: 03/28/20 07:49> ROS Statement: Those systems with pertinent positive or pertinent negative responses have been documented in the HPI. Past Medical History Past Medical History: Cancer Additional Past Medical History / Comment(s): stage IV Colon Ca, muscular dystrophy History of Any Multi-Drug Resistant Organisms: None Reported Past Surgical History: Section Additional Past Surgical History / Comment(s): lung surgery, colon surgery, ankle fusion, foot surgery Past Anesthesia/Blood Transfusion Reactions: No Reported Reaction, Postoperative Nausea & Vomiting (PONV) Past Psychological History: No Psychological Hx Reported Smoking Status: Former smoker Past Alcohol Use History: None Reported Past Drug Use History: None Reported - Past Family History Mother Family Medical History: Cancer Additional Family Medical History / Comment(s): Parents of cancer Sister(s) Additional Family Medical History / Comment(s): Musccular dystrophy Brother(s) Family Medical History: Diabetes Mellitus <Shirley Rosenbaum - Last Filed: 03/28/20 00:48> General Exam Limitations: no limitations General appearance: alert, in no apparent distress Head exam: Present: atraumatic, normocephalic, normal inspection Eye exam: Present: normal appearance, PERRL, EOMI. Absent: scleral icterus, conjunctival injection, periorbital swelling ENT exam: Present: normal exam, mucous membranes moist Neck exam: Present: normal inspection, other (Patient has port on right chest wall). Absent: tenderness, meningismus, lymphadenopathy Respiratory exam: Present: normal lung sounds bilaterally. Absent: respiratory distress, wheezes, rales, rhonchi, stridor Cardiovascular Exam: Present: regular rate, normal rhythm, normal heart sounds. Absent: systolic murmur, diastolic murmur, rubs, gallop, clicks GI/Abdominal exam: Present: soft, normal bowel sounds. Absent: distended, tenderness, guarding, rebound, rigid Extremities exam: Present: normal inspection, full ROM, normal capillary refill. Absent: tenderness, pedal edema, joint swelling, calf tenderness Back exam: Present: normal inspection Neurological exam: Present: alert, oriented X3, CN II-XII intact Psychiatric exam: Present: normal affect, normal mood Skin exam: Present: warm, dry, intact, normal color. Absent: rash <Shirley Rosenbaum - Last Filed: 03/28/20 00:48> - General Exam Comments Initial Comments: 74-year-old female. Alert and oriented 3. No distress. (Shirley Rosenbaum) Course Vital Signs 03/27/20 03/27/20 03/28/20 21:28 22:46 01:35 Temperature 98.0 F 97.8 F Pulse Rate 70 76 Respiratory 18 18 Rate Blood Pressure 150/79 148/63 148/77 O2 Sat by Pulse 99 99 Oximetry EKG Findings - EKG Comments: EKG Findings:: EKG performed at 2140 shows normal sinus rhythm with premature atrial complexes. Otherwise normal EKG. Ventricular rate of 69 bpm. Verbal was 184 ms. QRS ration is 96 ms. QT QTc is 454/486 ms. <Shirley Rosenbaum - Last Filed: 03/28/20 00:48> Medical Decision Making - Lab Data Result diagrams: 03/27/20 22:28 03/27/20 22:28 <Shirley Rosenbaum - Last Filed: 03/28/20 00:48> - Lab Data Result diagrams: 03/27/20 22:28 03/27/20 22:28 <Kavon High - Last Filed: 03/28/20 07:49> - Medical Decision Making 74-year-old female with stage IV colon cancer presents with nausea and dehydration episodes of weakness and dizziness. Denies any complaints of pain including headache. Patient was given Zofran still complaining of nausea. She is given Reglan Benadryl. Patient's lab work was reviewed. She saw to be neutropenic. She has 1 weeks post chemotherapy. Patient has been given 2 L bolus. Patient was E urinalysis shows evidence of a UTI. Urine culture and blood cultures will be completed. Patient started on IV Rocephin. Patient will be admitted at this time for nausea UTI neutropenia. (Shirley Rosenbaum) I saw this patient in conjunction with the physician internet marketing assistant. I performed independent history and physical exam. Agree with case management. (Kavon High) - Lab Data Lab Results 03/27/20 03/27/20 03/27/20 Range/Units 22:28 22:28 22:28 WBC 2.1 L (3.8-10.6) k/uL RBC 4.05 (3.80-5.40) m/uL Hgb 10.0 L (11.4-16.0) gm/dL Hct 33.0 L (34.0-46.0) % MCV 81.5 (80.0-100.0) fL MCH 24.6 L (25.0-35.0) pg MCHC 30.2 L (31.0-37.0) g/dL RDW 19.7 H (11.5-15.5) % Plt Count 139 L D (150-450) k/uL Neutrophils % 41 % Lymphocytes % 48 % Monocytes % 1 % Eosinophils % 5 % Basophils % 1 % Neutrophils # 0.9 L (1.3-7.7) k/uL Lymphocytes # 1.0 (1.0-4.8) k/uL Monocytes # 0.0 (0-1.0) k/uL Eosinophils # 0.1 (0-0.7) k/uL Basophils # 0.0 (0-0.2) k/uL Hypochromasia Marked Anisocytosis Slight Microcytosis Slight PT 11.1 (9.0-12.0) sec INR 1.1 (<1.2) Sodium 136 L (137-145) mmol/L Potassium 3.4 L (3.5-5.1) mmol/L Chloride 104 (98-107) mmol/L Carbon Dioxide 27 (22-30) mmol/L Anion Gap 5 mmol/L BUN 17 (7-17) mg/dL Creatinine 0.55 (0.52-1.04) mg/dL Est GFR (CKD-EPI)AfAm >90 (>60 ml/min/1.73 sqM) Est GFR (CKD-EPI)NonAf >90 (>60 ml/min/1.73 sqM) Glucose 124 H (74-99) mg/dL Plasma Lactic Acid Osvaldo (0.7-2.0) mmol/L Calcium 8.1 L (8.4-10.2) mg/dL Magnesium (1.6-2.3) mg/dL Total Bilirubin 0.6 (0.2-1.3) mg/dL AST 17 (14-36) U/L ALT 7 (4-34) U/L Alkaline Phosphatase 85 (38-126) U/L Troponin I (0.000-0.034) ng/mL Total Protein 5.5 L (6.3-8.2) g/dL Albumin 3.1 L (3.5-5.0) g/dL Urine Color Urine Appearance (Clear) Urine pH (5.0-8.0) Ur Specific [place] (1.001-1.035) Urine Protein (Negative) Urine Glucose (UA) (Negative) Urine Ketones (Negative) Urine Blood (Negative) Urine Nitrite (Negative) Urine Bilirubin (Negative) Urine Urobilinogen (<2.0) mg/dL Ur Leukocyte Esterase (Negative) Urine RBC (0-5) /hpf Urine WBC (0-5) /hpf Urine WBC Clumps (None) /hpf Ur Squamous Epith Cells (0-4) /hpf Urine Bacteria (None) /hpf Urine Mucus (None) /hpf 03/27/20 03/27/20 03/27/20 Range/Units 22:28 22:28 22:28 WBC (3.8-10.6) k/uL RBC (3.80-5.40) m/uL Hgb (11.4-16.0) gm/dL Hct (34.0-46.0) % MCV (80.0-100.0) fL MCH (25.0-35.0) pg MCHC (31.0-37.0) g/dL RDW (11.5-15.5) % Plt Count (150-450) k/uL Neutrophils % % Lymphocytes % % Monocytes % % Eosinophils % % Basophils % % Neutrophils # (1.3-7.7) k/uL Lymphocytes # (1.0-4.8) k/uL Monocytes # (0-1.0) k/uL Eosinophils # (0-0.7) k/uL Basophils # (0-0.2) k/uL Hypochromasia Anisocytosis Microcytosis PT (9.0-12.0) sec INR (<1.2) Sodium (137-145) mmol/L Potassium (3.5-5.1) mmol/L Chloride (98-107) mmol/L Carbon Dioxide (22-30) mmol/L Anion Gap mmol/L BUN (7-17) mg/dL Creatinine (0.52-1.04) mg/dL Est GFR (CKD-EPI)AfAm (>60 ml/min/1.73 sqM) Est GFR (CKD-EPI)NonAf (>60 ml/min/1.73 sqM) Glucose (74-99) mg/dL Plasma Lactic Acid Osvaldo 1.0 (0.7-2.0) mmol/L Calcium (8.4-10.2) mg/dL Magnesium 1.9 (1.6-2.3) mg/dL Total Bilirubin (0.2-1.3) mg/dL AST (14-36) U/L ALT (4-34) U/L Alkaline Phosphatase (38-126) U/L Troponin I <0.012 (0.000-0.034) ng/mL Total Protein (6.3-8.2) g/dL Albumin (3.5-5.0) g/dL Urine Color Urine Appearance (Clear) Urine pH (5.0-8.0) Ur Specific [place] (1.001-1.035) Urine Protein (Negative) Urine Glucose (UA) (Negative) Urine Ketones (Negative) Urine Blood (Negative) Urine Nitrite (Negative) Urine Bilirubin (Negative) Urine Urobilinogen (<2.0) mg/dL Ur Leukocyte Esterase (Negative) Urine RBC (0-5) /hpf Urine WBC (0-5) /hpf Urine WBC Clumps (None) /hpf Ur Squamous Epith Cells (0-4) /hpf Urine Bacteria (None) /hpf Urine Mucus (None) /hpf 03/28/20 Range/Units 00:03 WBC (3.8-10.6) k/uL RBC (3.80-5.40) m/uL Hgb (11.4-16.0) gm/dL Hct (34.0-46.0) % MCV (80.0-100.0) fL MCH (25.0-35.0) pg MCHC (31.0-37.0) g/dL RDW (11.5-15.5) % Plt Count (150-450) k/uL Neutrophils % % Lymphocytes % % Monocytes % % Eosinophils % % Basophils % % Neutrophils # (1.3-7.7) k/uL Lymphocytes # (1.0-4.8) k/uL Monocytes # (0-1.0) k/uL Eosinophils # (0-0.7) k/uL Basophils # (0-0.2) k/uL Hypochromasia Anisocytosis Microcytosis PT (9.0-12.0) sec INR (<1.2) Sodium (137-145) mmol/L Potassium (3.5-5.1) mmol/L Chloride (98-107) mmol/L Carbon Dioxide (22-30) mmol/L Anion Gap mmol/L BUN (7-17) mg/dL Creatinine (0.52-1.04) mg/dL Est GFR (CKD-EPI)AfAm (>60 ml/min/1.73 sqM) Est GFR (CKD-EPI)NonAf (>60 ml/min/1.73 sqM) Glucose (74-99) mg/dL Plasma Lactic Acid Osvaldo (0.7-2.0) mmol/L Calcium (8.4-10.2) mg/dL Magnesium (1.6-2.3) mg/dL Total Bilirubin (0.2-1.3) mg/dL AST (14-36) U/L ALT (4-34) U/L Alkaline Phosphatase (38-126) U/L Troponin I (0.000-0.034) ng/mL Total Protein (6.3-8.2) g/dL Albumin (3.5-5.0) g/dL Urine Color Yellow Urine Appearance Cloudy H (Clear) Urine pH 5.5 (5.0-8.0) Ur Specific [place] 1.012 (1.001-1.035) Urine Protein Trace H (Negative) Urine Glucose (UA) Negative (Negative) Urine Ketones Negative (Negative) Urine Blood Negative (Negative) Urine Nitrite Negative (Negative) Urine Bilirubin Negative (Negative) Urine Urobilinogen <2.0 (<2.0) mg/dL Ur Leukocyte Esterase Large H (Negative) Urine RBC 3 (0-5) /hpf Urine WBC 98 H (0-5) /hpf Urine WBC Clumps Few H (None) /hpf Ur Squamous Epith Cells <1 (0-4) /hpf Urine Bacteria Rare H (None) /hpf Urine Mucus Rare H (None) /hpf Disposition Is patient prescribed a controlled substance at d/c from ED?: No Time of Disposition: 00:50 <Shirley Rosenbaum - Last Filed: 03/28/20 00:48> <Kavon High - Last Filed: 03/28/20 07:49> Clinical Impression: Nausea, Neutropenia, UTI (urinary tract infection), Colon cancer Disposition: ADMITTED IP TO THIS HOSP Condition: Stable
[2020-03-27 22:45] LABS: Anisocytosis Slight; Basophils % (A) 1 %; Eosinophils # (A) 0.1 k/uL (0-0.7); Eosinophils % (A) 5 %; Hypochromasia Marked; INR 1.1 (<1.2); Lymphocytes % (A) 48 %; MCH 24.6 pg (25.0-35.0); MCHC 30.2 g/dL (31.0-37.0); MCV 81.5 fL (80.0-100.0); Mean Platelet Volume 9.1; Microcytosis Slight; Monocytes % (A) 1 %; Neutrophils # (A) 0.9 k/uL (1.3-7.7); Neutrophils % (A) 41 %; Prothrombin Time 11.1 sec (9.0-12.0); RBC 4.05 m/uL (3.80-5.40); RDW 19.7 % (11.5-15.5); WBC 2.1 k/uL (3.8-10.6)
[2020-03-27 22:46] LABS: Platelet Count 139 k/uL (150-450)
--- NOTE | 2020-03-27 22:47 | XR ---
EXAMINATION TYPE: XR chest 2V DATE OF EXAM: 03/27/2020 COMPARISON: NONE HISTORY: Dizziness TECHNIQUE: FINDINGS: There is right central venous catheter with tip in the superior vena cava. There is mild bl unting right costophrenic angle and pleural thickening right lateral chest wall that could be loculat ed fluid. There is no heart failure. Left lung is clear of infiltrate. There is minimal pleural thick ening in the lateral left upper lobe. Heart size is normal. IMPRESSION: Pleural fluid and thickening. No heart failure.
[2020-03-27 22:48] LABS: ALT 7 U/L (4-34); AST 17 U/L (14-36); African American GFR (CKD) >90 (>60 ml/min/1.73 sqM); Albumin 3.1 g/dL (3.5-5.0); Alkaline Phosphatase 85 U/L (38-126); Anion Gap 5 mmol/L; Blood Urea Nitrogen 17 mg/dL (7-17); Calcium 8.1 mg/dL (8.4-10.2); Carbon Dioxide 27 mmol/L (22-30); Chloride 104 mmol/L (98-107); Glucose 124 mg/dL (74-99); Non-African American GFR(CKD) >90 (>60 ml/min/1.73 sqM); Potassium 3.4 mmol/L (3.5-5.1); Sodium 136 mmol/L (137-145); Total Bilirubin 0.6 mg/dL (0.2-1.3); Total Protein 5.5 g/dL (6.3-8.2)
[2020-03-27] MEDS ORDERED: METOCLOPRAMIDE 5 MG/ML 2 ML VIAL IVP STA (23:18)
[2020-03-27] MEDS ORDERED: diphenhydrAMINE 50 MG/ML 1 ML VIAL IVP STA (23:18)
[2020-03-27] MEDS ORDERED: SODIUM CHLORIDE 0.9% 1,000 ML IV ONE (23:40)
[2020-03-28 00:20] LABS: Appearance,Urine Cloudy (Clear); Bacteria,Urine Rare /hpf; Bilirubin,Urine Negative (Negative); Blood,Urine Negative (Negative); Color,Urine Yellow; Glucose,Urine (UA) Negative (Negative); Ketones,Urine Negative (Negative); Leukocyte Esterase,Urine Large (Negative); Mucus,Urine Rare /hpf; Nitrite,Urine Negative (Negative); PH, Urine 5.5 (5.0-8.0); Protein,Urine Trace (Negative); RBC,Urine 3 /hpf (0-5); Specific Gravity,Urine 1.012 (1.001-1.035); Squamous Epithelial Cell,Urine <1 /hpf (0-4); Urobilinogen,Urine <2.0 mg/dL (<2.0); WBC,Urine 98 /hpf (0-5)
[2020-03-28] MEDS ORDERED: cefTRIAXone IN SWFI 1,000 MG/10 ML SYRINGE IVP STA (00:23)
[2020-03-28] MEDS ORDERED: IBUPROFEN 400 MG TAB PO PRN (00:50)
[2020-03-28] MEDS ORDERED: MORPHINE SULFATE 4 MG/ML SYRINGE IV PRN (00:50)
[2020-03-28] MEDS ORDERED: NALOXONE 0.4 MG/ML 1 ML VIAL IV PRN (00:50)
[2020-03-28] MEDS ORDERED: ACETAMINOPHEN TAB 325 MG TAB PO PRN (00:50)
[2020-03-28] MEDS ORDERED: ONDANSETRON 4 MG TAB PO PRN (00:52)
[2020-03-28] MEDS ORDERED: HYDROCORTISONE SUPPOSITORY 25 MG SUPP RECTAL PRN (00:52)
[2020-03-28] MEDS ORDERED: PSYLLIUM HUSK 100% 6 GM PACKET PO PRN (00:52)
[2020-03-28] MEDS ORDERED: SENNOSIDES 8.6 MG TAB PO PRN (00:52)
[2020-03-28] MEDS ORDERED: LIDOCAINE-PRILOCAINE 2.5-2.5% CREAM 5 GM TUBE TOPICAL PRN (00:52)
[2020-03-28] MEDS: SODIUM CHLORIDE 0.9% 1,000 ML IV SCH ×3 (02:49→17:35)
[2020-03-28] MEDS: PANTOPRAZOLE 40 MG/10 ML VIAL IV SCH (08:30)
[2020-03-28] MEDS: MAG HYDROX/AL HYDROX/SIMETH 30 ML, diphenhydrAMINE ELIXIR 75 MG, NYSTATIN 100,000 UNIT/... PO SCH ×12 (08:31→20:38)
[2020-03-28] MEDS ORDERED: MAGNESIUM HYDROXIDE PO SCH (09:00)
[2020-03-28] MEDS ORDERED: DIPHENHYDRAMINE PO SCH (09:00)
[2020-03-28] MEDS ORDERED: NYSTATIN PO SCH (09:00)
[2020-03-28] MEDS ORDERED: ALUMINUM HYDROXIDE PO SCH (09:00)
[2020-03-28] MEDS ORDERED: POTASSIUM CHLORIDE ER 20 MEQ TAB.ER PO STA (10:08)
--- NOTE | 2020-03-28 11:12 | P.HPIM ---
History of Present Illness 74-year-old female who presents the emergency department today for evaluation of dizziness lightheadedness complaining of nausea. Patient reports that she's been having nausea symptoms for the past week since having her chemotherapy. She does have stage IV colon cancer. Patient denies any current chest pain, headache or shortness of breath. She states that she just feels weak and lightheaded. Patient reports no vomiting. She did have episodes of diarrhea this week which stopped with Imodium. Patient had chemotherapy on . Patient has metastatic colon cancer metastases to lung and liver. Patient nausea vomiting diarrhea symptoms and improved at this time patient is a week will need that physical therapy and occupational therapy evaluation. Review of Systems REVIEW OF SYSTEMS: CONSTITUTIONAL: No fever, no malaise, no fatigue. HEENT: No recent visual problems or hearing problems. Denied any sore throat. CARDIOVASCULAR: No chest pain, orthopnea, PND, no palpitations, no syncope. PULMONARY: No shortness of breath, no cough, no hemoptysis. GASTROINTESTINAL: As mentioned in HPI NEUROLOGICAL: No headaches, no weakness, no numbness. HEMATOLOGICAL: Denies any bleeding or petechiae. GENITOURINARY: Denies any burning micturition, frequency, or urgency. MUSCULOSKELETAL/RHEUMATOLOGICAL: Denies any joint pain, swelling, or any muscle pain. ENDOCRINE: Denies any polyuria or polydipsia. The rest of the 14-point review of systems is negative. Past Medical History Past Medical History: Cancer Additional Past Medical History / Comment(s): 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, muscular dystrophy History of Any Multi-Drug Resistant Organisms: None Reported Past Surgical History: Adenoidectomy, Section, Tonsillectomy Additional Past Surgical History / Comment(s): lung surgery, colon surgery, ankle fusion, foot surgery, right mediport Past Anesthesia/Blood Transfusion Reactions: No Reported Reaction, Postoperative Nausea & Vomiting (PONV) Past Psychological History: No Psychological Hx Reported Smoking Status: Former smoker Past Alcohol Use History: None Reported Past Drug Use History: None Reported - Past Family History Mother Family Medical History: Cancer Additional Family Medical History / Comment(s): Parents of cancer Sister(s) Additional Family Medical History / Comment(s): Musccular dystrophy Brother(s) Family Medical History: Diabetes Mellitus Medications and Allergies Home Medications Medication Instructions Recorded Confirmed Type Acetaminophen [Tylenol Arthritis] 650 - 1,300 mg PO Q8H PRN 12/31/19 03/28/20 History Lidocaine-Prilocaine Cream [Emla 1 applic TOPICAL DAILY PRN 01/30/20 03/28/20 History Cream 2.5%/2.5%] Ondansetron [Zofran] 4 mg PO BID PRN 01/30/20 03/28/20 History Hydrocortisone Suppository 25 mg RECTAL BID PRN 03/28/20 03/28/20 History [Anusol-Hc] Nystatin/Maalox/Benadryl Compound 5 ml PO QID 03/28/20 03/28/20 History 1:1 Psyllium Husk 100% [Metamucil 6 gm PO BID PRN 03/28/20 03/28/20 History Packet] Sennosides [Senna] 8.6 mg PO BID PRN 03/28/20 03/28/20 History Allergies Allergy/AdvReac Type Severity Reaction Status Date / Time famotidine [From Pepcid] Allergy Rash/Hives Verified 03/28/20 00:21 fluconazole [From Diflucan] Allergy Rash/Hives/ Verified 03/28/20 00:21 Swelling codeine AdvReac Nausea & Verified 03/28/20 00:21 Vomiting naproxen AdvReac Rapid Verified 03/28/20 00:21 Heart Rate Physical Exam Vitals: Vital Signs Temp Pulse Pulse Resp BP BP Pulse Ox 03/28/20 08:00 68 16 03/28/20 05:00 98.2 F 68 16 145/80 98 03/28/20 01:54 97.8 F 67 16 147/93 94 L 03/28/20 01:35 97.8 F 76 18 148/77 99 03/27/20 22:46 148/63 03/27/20 21:28 98.0 F 70 18 150/79 99 Intake and Output 03/27/20 03/28/20 03/28/20 22:59 06:59 14:59 Intake Total 590 Balance 590 Intake: Oral 590 Other: Voiding Method Bedpan Bedside Commode # Voids 1 # Bowel Movements 1 1 Weight 59.874 kg 59.874 kg PHYSICAL EXAMINATION: GENERAL: Thin built up tired HEENT: Pupils are round and equally reacting to light. EOMI. No scleral icterus. No conjunctival pallor. Normocephalic, atraumatic. No pharyngeal erythema. No thyromegaly. CARDIOVASCULAR: S1 and S2 present. No murmurs, rubs, or gallops. PULMONARY: Chest is clear to auscultation, no wheezing or crackles. ABDOMEN: Soft, nontender, nondistended, normoactive bowel sounds. No palpable organomegaly. MUSCULOSKELETAL: No joint swelling or deformity. EXTREMITIES: No cyanosis, clubbing, or pedal edema. NEUROLOGICAL: Gross neurological examination did not reveal any focal deficits. SKIN: No rashes. Results CBC & Chem 7: 03/27/20 22:28 03/27/20 22:28 Labs: Abnormal Lab Results - Last 24 Hours (Table) 03/27/20 03/27/20 03/28/20 Range/Units 22:28 22:28 00:03 WBC 2.1 L (3.8-10.6) k/uL Hgb 10.0 L (11.4-16.0) gm/dL Hct 33.0 L (34.0-46.0) % MCH 24.6 L (25.0-35.0) pg MCHC 30.2 L (31.0-37.0) g/dL RDW 19.7 H (11.5-15.5) % Plt Count 139 L D (150-450) k/uL Neutrophils # 0.9 L (1.3-7.7) k/uL Sodium 136 L (137-145) mmol/L Potassium 3.4 L (3.5-5.1) mmol/L Glucose 124 H (74-99) mg/dL Calcium 8.1 L (8.4-10.2) mg/dL Total Protein 5.5 L (6.3-8.2) g/dL Albumin 3.1 L (3.5-5.0) g/dL Urine Appearance Cloudy H (Clear) Urine Protein Trace H (Negative) Ur Leukocyte Esterase Large H (Negative) Urine WBC 98 H (0-5) /hpf Urine WBC Clumps Few H (None) /hpf Urine Bacteria Rare H (None) /hpf Urine Mucus Rare H (None) /hpf Thrombosis Risk Factor Assmnt - Choose All That Apply Any of the Below Risk Factors Present?: Yes Each Factor Represents 1 point: Serious lung disease incl. pneumonia (< 1month) Other Risk Factors: Yes Each Risk Factor Represents 2 Points: Age 61-74 years, Malignancy Thrombosis Risk Factor Assessment Total Risk Factor Score: 5 Thrombosis Risk Factor Assessment Level: High Risk Assessment and Plan Plan: -r nausea vomiting diarrhea: Probably secondary to chemotherapy nausea vomiting diarrhea improved will obtain abdominal x-ray to rule out any bowel obstruction. Patient will be on proton pump inhibitor and symptomatic treatment for this. Patient doesn't appear to have any mucositis at this time -Colon cancer metastasis: Patient is receiving chemotherapy. -Ganeralized weakness secondary to cancer: Physical therapy and outpatient evaluation patient may need to be placed in subacute rehabilitation.
--- NOTE | 2020-03-28 11:37 | P.CONS ---
History of Present Illness - Reason for Consult Consult date: 03/28/20 - History of Present Illness The patient is 74-year-old white female, well known to our service. She was initially seen in consult here in 11/21. Previous oncology treatment had been through [facility] under Dr. Jack Vela, in the [place] area. The patient was diagnosed with colon cancer in 2016 and underwent surgery. She states that due to early-stage systemic chemotherapy was not recommended. Unfortunately she developed metastatic recurrence in late 2017 in the lung. She was treated with resection of some of the lesions, and definitive radiation to a remaining lesion on the left lung in early 2018. She was then on systemic chemotherapy, and states that she had about 8 cycles of the same. Scans at that time showed no evidence of disease. The patient was having progressive side effects from chemo due to which she was changed to Avastin. According to the patient she then developed several competitions related to Avastin, including kidney damage. Therefore this was discontinued. Restaging at this time, around 07/24 showed progression with metastatic disease now in the liver. The patient states that she had biomarker testing done. It appears that this was negative, as it was recommended that she start Stivarga. She ultimately started this in 11/21. However she was unable to tolerate that with multiple subsequent hospitalization here, with GI issues felt to be related to the medication. Symptoms recurred even with lower dosing. The patient decided to transfer her oncology care locally, and was seen in the office after her admission in 01/21. After detailed discussion of limited t reatment options, as well as for comfort care, the patient decided for active treatment. She was therefore started on FOLFIRI at a reduced dose, and is status post 2 cycles. She had her pump disconnected after cycle 2 on 03/24/20. The patient states that she is some dry heaves on 03/23/20 with subsequent improvement. However these recurred on 03/25/20, along with some diarrhea. While diarrhea resolved fairly quickly, the nausea and dry heaving persisted leading to decreased oral intake and progressive weakness. She therefore came into the emergency room. She was found to have W BC of 2.1 with absolute neutrophil count of 900. Urinalysis was abnormal. She appeared to be dehydrated. She was therefore admitted for further management. Review of Systems Constitutional: Reports poor appetite, Reports weakness Eyes: denies blurred vision, denies pain Ears: deny: decreased hearing, ear discharge, earache, tinnitus Ears, nose, mouth and throat: Denies headache, Denies sore throat Cardiovascular: Reports decreased exercise tolerance Respiratory: Denies cough Gastrointestinal: Reports diarrhea, Reports nausea, Reports vomiting Genitourinary: Denies dysuria, Denies hematuria Menstruation: Reports postmenopausal Musculoskeletal: Reports muscle weakness Integumentary: Denies pruritus, Denies rash Neurological: Reports weakness Psychiatric: Denies anxiety, Denies depression Endocrine: Reports fatigue, Reports weight change Hematologic/Lymphatic: Reports as per HPI Past Medical History Past Medical History: Cancer Additional Past Medical History / Comment(s): 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, muscular dystrophy History of Any Multi-Drug Resistant Organisms: None Reported Past Surgical History: Adenoidectomy, Section, Tonsillectomy Additional Past Surgical History / Comment(s): lung surgery, colon surgery, ankle fusion, foot surgery, right mediport Past Anesthesia/Blood Transfusion Reactions: No Reported Reaction, Postoperative Nausea & Vomiting (PONV) Past Psychological History: No Psychological Hx Reported Smoking Status: Former smoker Past Alcohol Use History: None Reported Past Drug Use History: None Reported - Past Family History Mother Family Medical History: Cancer Additional Family Medical History / Comment(s): Parents of cancer Sister(s) Additional Family Medical History / Comment(s): Musccular dystrophy Brother(s) Family Medical History: Diabetes Mellitus Medications and Allergies Home Medications Medication Instructions Recorded Confirmed Type Acetaminophen [Tylenol Arthritis] 650 - 1,300 mg PO Q8H PRN 12/31/19 03/28/20 History Lidocaine-Prilocaine Cream [Emla 1 applic TOPICAL DAILY PRN 01/30/20 03/28/20 History Cream 2.5%/2.5%] Ondansetron [Zofran] 4 mg PO BID PRN 01/30/20 03/28/20 History Hydrocortisone Suppository 25 mg RECTAL BID PRN 03/28/20 03/28/20 History [Anusol-Hc] Nystatin/Maalox/Benadryl Compound 5 ml PO QID 03/28/20 03/28/20 History 1:1 Psyllium Husk 100% [Metamucil 6 gm PO BID PRN 03/28/20 03/28/20 History Packet] Sennosides [Senna] 8.6 mg PO BID PRN 03/28/20 03/28/20 History Allergies Allergy/AdvReac Type Severity Reaction Status Date / Time famotidine [From Pepcid] Allergy Rash/Hives Verified 03/28/20 00:21 fluconazole [From Diflucan] Allergy Rash/Hives/ Verified 03/28/20 00:21 Swelling codeine AdvReac Nausea & Verified 03/28/20 00:21 Vomiting naproxen AdvReac Rapid Verified 03/28/20 00:21 Heart Rate Physical Exam Vitals: Vital Signs Temp Pulse Pulse Resp BP BP Pulse Ox 03/28/20 08:00 68 16 03/28/20 05:00 98.2 F 68 16 145/80 98 03/28/20 01:54 97.8 F 67 16 147/93 94 L 03/28/20 01:35 97.8 F 76 18 148/77 99 03/27/20 22:46 148/63 03/27/20 21:28 98.0 F 70 18 150/79 99 Intake and Output 03/27/20 03/28/20 03/28/20 22:59 06:59 14:59 Intake Total 590 Balance 590 Intake: Oral 590 Other: Voiding Method Bedpan Bedside Commode # Voids 1 # Bowel Movements 1 1 Weight 59.874 kg 59.874 kg - Constitutional General appearance: no acute distress - EENT Eyes: EOMI, PERRLA ENT: hearing grossly normal, normal oropharynx - Neck Neck: no lymphadenopathy - Respiratory Respiratory: bilateral: CTA - Cardiovascular Rhythm: regular Heart sounds: normal: S1, S2 - Gastrointestinal General gastrointestinal: decreased bowel sounds, soft - Integumentary Integumentary: normal - Neurologic Neurologic: CNII-XII intact - Musculoskeletal Musculoskeletal: generalized weakness, strength equal bilaterally - Psychiatric Psychiatric: A&O x's 3, appropriate affect Results CBC & Chem 7: 03/27/20 22:28 03/27/20 22:28 Labs: Abnormal Lab Results - Last 24 Hours (Table) 03/27/20 03/27/20 03/28/20 Range/Units 22:28 22:28 00:03 WBC 2.1 L (3.8-10.6) k/uL Hgb 10.0 L (11.4-16.0) gm/dL Hct 33.0 L (34.0-46.0) % MCH 24.6 L (25.0-35.0) pg MCHC 30.2 L (31.0-37.0) g/dL RDW 19.7 H (11.5-15.5) % Plt Count 139 L D (150-450) k/uL Neutrophils # 0.9 L (1.3-7.7) k/uL Sodium 136 L (137-145) mmol/L Potassium 3.4 L (3.5-5.1) mmol/L Glucose 124 H (74-99) mg/dL Calcium 8.1 L (8.4-10.2) mg/dL Total Protein 5.5 L (6.3-8.2) g/dL Albumin 3.1 L (3.5-5.0) g/dL Urine Appearance Cloudy H (Clear) Urine Protein Trace H (Negative) Ur Leukocyte Esterase Large H (Negative) Urine WBC 98 H (0-5) /hpf Urine WBC Clumps Few H (None) /hpf Urine Bacteria Rare H (None) /hpf Urine Mucus Rare H (None) /hpf Comments: EKG report reviewed, occ PACs Chest x-ray: report reviewed Assessment and Plan (1) Nausea & vomiting Narrative/Plan: The patient developed nausea with mostly dry heaves after her second cycle of chemotherapy. This led to decreased oral intake and dehydration, resulting in this admission. At this time is not clear of the symptoms are due to possible intercurrent UTI, versus chemotherapy effect, versus recurrent ileus. - IV antiemetics, and IV hydration - Case discussed with the admitting service. We'll check abdominal x-ray to rule out recurrent ileus. On exam bowel sounds were somewhat diminished. However the patient has been having bowel movements and passing gas. - The patient is currently on IV antibiotics for possible UTI - A chemotherapy effect cannot be totally ruled out. The patient has had GI swapnil e effects with prior treatments as noted in the HPI. She is receiving the same chemotherapy that she received initially, with dose reduction try to reduce incidence of side effects. At this time as there are possible other explanations, the plan would be to continue the same treatment after resolution of the acute issues. However if he continues to have similar complaints with subsequent cycles of treatment, and we will need to consider further dose reduction or even discontinuation. Current Visit: Yes Status: Acute Code(s): R11.2 - NAUSEA WITH VOMITING, UNSPECIFIED SNOMED Code(s): 92989539 (2) Neutropenia Narrative/Plan: The patient's neutropenia is actually borderline, with ANC 900. She is afebrile. However as there is a possibility of UTI, and counts may drop further since she is approaching his yann, she will be given G-CSF while in the hospital. Current Visit: Yes Status: Acute Code(s): D70.9 - NEUTROPENIA, UNSPECIFIED SNOMED Code(s): 088439072 (3) Colon cancer Narrative/Plan: Diagnostic and therapeutic circumstances as noted in the HPI, and assessment plan as noted above. As stated above, the plan would be to rechallenge with the same treatment as an outpatient as scheduled, assuming resolution of the acute complaints Current Visit: Yes Status: Acute Code(s): C18.9 - MALIGNANT NEOPLASM OF COLON, UNSPECIFIED SNOMED Code(s): 881984830 (4) UTI (urinary tract infection) Narrative/Plan: The patient is on ceftriaxone. Cultures awaited. Current Visit: Yes Status: Acute Code(s): N39.0 - URINARY TRACT INFECTION, SITE NOT SPECIFIED SNOMED Code(s): 46873679
--- NOTE | 2020-03-28 12:17 | XR ---
EXAMINATION TYPE: XR abdomen acute w cxr DATE OF EXAM: 03/28/2020 CLINICAL HISTORY: Dizziness and weakness. Recent chemotherapy. Known metastatic colon cancer. TECHNIQUE: Single frontal view of chest is obtained. Supine and upright views of the abdomen are acq uired. COMPARISON: Chest x-ray from yesterday. CT chest March 02, 2020. CT abdomen and pelvis February 02, 2020 FINDINGS: Stable right internal jugular Mediport catheter. Persistent but improved right apical ante rior mass. Background chronic parenchymal change. Cardiac silhouette size appears stable and upper li mits of normal. Probable small to tiny right pleural effusion fili prior. Degenerative change bilate ral shoulders redemonstrated. Some paucity of bowel gas. Gas seen in nondistended small bowel loops. Slightly more prominent gas f illed colonic loops though improved distention from prior CT noted. Prominent multilevel spurring in the spine. Advanced degenerative change left glenohumeral joint. No pneumoperitoneum. IMPRESSION: 1. No new acute pulmonary process. 2. Overall nonobstructive bowel gas pattern.
[2020-03-28] MEDS: FILGRASTIM-SNDZ 480 MCG/0.8 ML SYRINGE SQ SCH (14:17)
[2020-03-28] MEDS: SALT AND SODA MOUTHWASH 1,000 ML PO SCH (21:00)
[2020-03-29] MEDS: SALT AND SODA MOUTHWASH 1,000 ML PO SCH ×4 (01:19→21:23)
[2020-03-29] MEDS: LOPERAMIDE 2 MG CAP PO PRN ×2 (03:23→15:15)
[2020-03-29 05:48] LABS: Anisocytosis Slight; HCT 31.4 % (34.0-46.0); HGB 9.9 gm/dL (11.4-16.0); Hypochromasia Marked; MCHC 31.4 g/dL (31.0-37.0); MCV 82.6 fL (80.0-100.0); Microcytosis Slight; Platelet Count 102 k/uL (150-450); RDW 19.6 % (11.5-15.5)
[2020-03-29] MEDS: FILGRASTIM-SNDZ 480 MCG/0.8 ML SYRINGE SQ SCH ×2 (09:13→09:20)
[2020-03-29] MEDS: MAG HYDROX/AL HYDROX/SIMETH 30 ML, diphenhydrAMINE ELIXIR 75 MG, NYSTATIN 100,000 UNIT/... PO SCH ×12 (09:14→21:22)
[2020-03-29] MEDS: ENOXAPARIN 40 MG/0.4 ML SYRINGE SQ SCH (09:14)
[2020-03-29] MEDS: PANTOPRAZOLE 40 MG/10 ML VIAL IV SCH (09:14)
--- NOTE | 2020-03-29 11:11 | P.DS ---
Providers Date of admission: 03/28/20 00:21 Attending physician: Fredrick Fairbanks Consults: 03/28/20 00:50 Consult Physician Stat Consulting Provider: Get Nguyen Consult Reason/Comments: Neutropenia, Colon ca, uti Do you want consulting provider notified?: Yes, Notify in am Primary care physician: [facility] Course: 74-year-old female who presents the emergency department today for evaluation of dizziness lightheadedness complaining of nausea. Patient reports that she's been having nausea symptoms for the past week since having her chemotherapy. She does have stage IV colon cancer. Patient denies any current chest pain, headache or shortness of breath. She states that she just feels weak and lightheaded. Patient reports no vomiting. She did have episodes of diarrhea this week which stopped with Imodium. Patient had chemotherapy on . Patient has metastatic colon cancer metastases to lung and liver. Patient nausea vomiting diarrhea symptoms and improved at this time patient is a week will need that physical therapy and occupational therapy evaluation. 03/29/2020 After evaluation by physical therapy and if appropriate patient will be discharged today. Patient nausea vomiting diarrhea improved patient last diarrhea was yesterday which improved with the antidiarrheal medications and patient doesn't have C. diff. Awaiting basic metabolic profile from today, is there any left leg abnormality stools will be corrected before discharge. PHYSICAL EXAMINATION: GENERAL: Thin built up tired HEENT: Pupils are round and equally reacting to light. EOMI. No scleral icterus. No conjunctival pallor. Normocephalic, atraumatic. No pharyngeal erythema. No thyromegaly. CARDIOVASCULAR: S1 and S2 present. No murmurs, rubs, or gallops. PULMONARY: Chest is clear to auscultation, no wheezing or crackles. ABDOMEN: Soft, nontender, nondistended, normoactive bowel sounds. No palpable organomegaly. MUSCULOSKELETAL: No joint swelling or deformity. EXTREMITIES: No cyanosis, clubbing, or pedal edema. NEUROLOGICAL: Gross neurological examination did not reveal any focal deficits. SKIN: No rashes. Assessment and Plan Plan: - nausea vomiting diarrhea: Probably secondary to chemotherapy nausea vomiting diarrhea improved will obtain abdominal x-ray not showing bowel obstruction. -Ruled out C. diff colitis -Colon cancer metastasis: Patient is receiving chemotherapy. -Ganeralized weakness secondary to cancer: Physical therapy evaluation. Patient Condition at Discharge: Stable Plan - Discharge Summary Discharge Rx Participant: No New Discharge Prescriptions: New Omeprazole [PriLOSEC] 40 mg PO YAMILKA-BRKFST #14 capsule.dr [place] Acetaminophen [Tylenol Arthritis] 650 - 1,300 mg PO Q8H PRN PRN Reason: Pain Ondansetron [Zofran] 4 mg PO BID PRN PRN Reason: Nausea And Vomiting Lidocaine-Prilocaine Cream [Emla Cream 2.5%/2.5%] 1 applic TOPICAL DAILY PRN PRN Reason: PORT ACCESS Psyllium Husk 100% [Metamucil Packet] 6 gm PO BID PRN PRN Reason: Constipation Hydrocortisone Suppository [Anusol-Hc] 25 mg RECTAL BID PRN PRN Reason: Hemorrhoids Sennosides [Senna] 8.6 mg PO BID PRN PRN Reason: Constipation Nystatin/Maalox/Benadryl Compound 1:1 5 ml PO QID Discharge Medication List Acetaminophen [Tylenol Arthritis] 650 - 1,300 mg PO Q8H PRN 12/31/19 [History] Lidocaine-Prilocaine Cream [Emla Cream 2.5%/2.5%] 1 applic TOPICAL DAILY PRN 01/30/20 [History] Ondansetron [Zofran] 4 mg PO BID PRN 01/30/20 [History] Hydrocortisone Suppository [Anusol-Hc] 25 mg RECTAL BID PRN 03/28/20 [History] Nystatin/Maalox/Benadryl Compound 1:1 5 ml PO QID 03/28/20 [History] Psyllium Husk 100% [Metamucil Packet] 6 gm PO BID PRN 03/28/20 [History] Sennosides [Senna] 8.6 mg PO BID PRN 03/28/20 [History] Omeprazole [PriLOSEC] 40 mg PO YAMILKA-BRKFST #14 capsule. 03/29/20 [Rx] Follow up Appointment(s)/Referral(s): Roderick Barclay MD [Primary Care Provider] - 3 Days Discharge Disposition: HOME SELF-CARE
[2020-03-29 13:50] LABS: African American GFR (CKD) 110.5 (60.0-200.0); Albumin 3.4 g/dL (3.80-4.90); Albumin/Globulin Ratio 2.13 (1.60-3.17); Anion Gap 5.9 mmol/L (4.00-12.00); Calcium 7.7 mg/dL (8.7-10.3); Carbon Dioxide 26.1 mmol/L (21.6-31.8); Globulin 1.6 g/dL (1.6-3.3); Magnesium 1.6 mg/dL (1.5-2.4); Non-African American GFR(CKD) 95.3 (60.0-200.0); Potassium 3.6 mmol/L (3.5-5.5); Total Bilirubin 0.5 mg/dL (0.3-1.2)
[2020-03-29] MEDS: SODIUM CHLORIDE 0.9% 1,000 ML IV SCH ×2 (15:16→20:41)
--- NOTE | 2020-03-29 20:28 | P.PN ---
Subjective Progress Note Date: 03/29/20 Principal diagnosis: fever chemo WBC improving Objective - Vital Signs Vital signs: Vital Signs Temp 97.7 F 03/29/20 04:55 Pulse 69 03/29/20 04:55 Resp 16 03/29/20 04:55 BP 126/78 03/29/20 04:55 Pulse Ox 98 03/29/20 04:55 Intake & Output 03/28/20 03/29/20 03/29/20 18:59 06:59 18:59 Intake Total 1040 1180 Balance 1040 1180 Intake: Intake, IV Titration 800 Amount Sodium Chloride 0.9% 1, 800 000 ml @ 100 mls/hr IV . Q10H [facility] Rx#:[id number] Oral 240 1180 Other: Voiding Method Bedside Commode Bedside Commode # Voids 2 3 # Bowel Movements 1 3 - Exam - Constitutional General appearance: no acute distress - EENT Eyes: EOMI, PERRLA ENT: hearing grossly normal, normal oropharynx - Neck Neck: no lymphadenopathy - Respiratory Respiratory: bilateral: CTA - Cardiovascular Rhythm: regular Heart sounds: normal: S1, S2 - Gastrointestinal General gastrointestinal: decreased bowel sounds, soft - Integumentary Integumentary: normal - Neurologic Neurologic: CNII-XII intact - Musculoskeletal Musculoskeletal: generalized weakness, strength equal bilaterally - Psychiatric Psychiatric: A&O x's 3, appropriate affect - Labs CBC & Chem 7: 03/29/20 05:26 03/29/20 05:26 Labs: Abnormal Lab Results - Last 24 Hours (Table) 03/29/20 Range/Units 05:26 Hgb 9.9 L (11.4-16.0) gm/dL Hct 31.4 L (34.0-46.0) % RDW 19.6 H (11.5-15.5) % Plt Count 102 L (150-450) k/uL Microbiology - Last 24 Hours (Table) 03/28/20 01:30 Blood Culture - Preliminary Blood No Growth after 24 hours 03/28/20 00:25 Urine Culture - Preliminary Urine,Clean Catch Assessment and Plan Plan: Nausea & vomiting Narrative/Plan: - Symptoms are improving - Increase diet - IV antiemetics, and IV hydration to continue Current Visit: Yes Status: Acute Code(s): R11.2 - NAUSEA WITH VOMITING, UNSPECIFIED SNOMED Code(s): 36314075 (2) Neutropenia Narrative/Plan: -WBC increased to 7 today, will stop GCSF Current Visit: Yes Status: Acute Code(s): D70.9 - NEUTROPENIA, UNSPECIFIED SNOMED Code(s): 147676662 (3) Colon cancer Narrative/Plan: - Adjustments for next chemotherapy in supportive medications and assuming symptoms continue to improve with treatment of UTI Current Visit: Yes Status: Acute Code(s): C18.9 - MALIGNANT NEOPLASM OF COLON, UNSPECIFIED SNOMED Code(s): 840578206 (4) UTI (urinary tract infection) Narrative/Plan: - The patient is on ceftriaxone. - Gram Negative Bacilli found in Urine Current Visit: Yes Status: Acute Code(s): N39.0 - URINARY TRACT INFECTION, SITE NOT SPECIFIED SNOMED Code(s): 25136246 physician Attest: I have completed the full history and physical and developed the above impression and plan, agree with dictation, dictated as a scribe.
[2020-03-30] MEDS: SODIUM CHLORIDE 0.9% 1,000 ML IV SCH ×2 (05:02→20:51)
[2020-03-30 05:29] LABS: Anisocytosis Slight; HCT 29.8 % (34.0-46.0); HGB 9.2 gm/dL (11.4-16.0); Hypochromasia Marked; MCH 25.5 pg (25.0-35.0); MCHC 30.9 g/dL (31.0-37.0); MCV 82.7 fL (80.0-100.0); Mean Platelet Volume 9.5; Microcytosis Slight; RBC 3.61 m/uL (3.80-5.40); RDW 19.7 % (11.5-15.5); WBC 7.9 k/uL (3.8-10.6)
[2020-03-30 05:51] LABS: Band Neutrophils % 8 %; Eosinophils # (M) 0.32 k/uL (0-0.7); Lymphocytes # (M) 1.58 k/uL (1.0-4.8); Monocytes # (M) 0.24 k/uL (0-1.0); Neutrophils % (M) 65 %; Nucleated Red Blood Cells 0 /100 WBC (0-0); Platelet Count 88 k/uL (150-450); Total Cells Counted 100; Toxic Vacuolation Present
[2020-03-30] MEDS: ONDANSETRON 4 MG/2 ML VIAL IVP PRN (09:12)
[2020-03-30] MEDS: PANTOPRAZOLE 40 MG/10 ML VIAL IV SCH (09:14)
[2020-03-30] MEDS: ENOXAPARIN 40 MG/0.4 ML SYRINGE SQ SCH (09:14)
[2020-03-30] MEDS: MAG HYDROX/AL HYDROX/SIMETH 30 ML, diphenhydrAMINE ELIXIR 75 MG, NYSTATIN 100,000 UNIT/... PO SCH ×12 (09:14→20:53)
[2020-03-30] MEDS: SALT AND SODA MOUTHWASH 1,000 ML PO SCH ×3 (09:14→20:53)
[2020-03-30 09:20] LABS: ALT <8 U/L (8-44); AST 12 U/L (13-35); African American GFR (CKD) 118.9 (60.0-200.0); Albumin/Globulin Ratio 1.94 (1.60-3.17); Alkaline Phosphatase 87 U/L (41-126); Calcium 7.7 mg/dL (8.7-10.3); Carbon Dioxide 22.8 mmol/L (21.6-31.8); Chloride 109 mmol/L (96-109); Globulin 1.6 g/dL (1.6-3.3); Glucose 108 mg/dL (70-110); Non-African American GFR(CKD) 102.6 (60.0-200.0); Potassium 3.3 mmol/L (3.5-5.5); Sodium 140 mmol/L (135-145); Total Bilirubin 0.3 mg/dL (0.2-1.2); Total Protein 4.7 g/dL (6.2-8.2)
[2020-03-30] MEDS ORDERED: POTASSIUM CHLORIDE ER 20 MEQ TAB.ER PO STA (10:32)
--- NOTE | 2020-03-30 10:50 | P.PN ---
Subjective Progress Note Date: 03/30/20 Principal diagnosis: UTI, nausea, vomiting, diarrhea. On treatment for colon cancer In follow-up today patient states she had a bowel movement yesterday, it was a mix of diarrhea and formed stool, she is now see us again this morning, she notes early satiety and epigastric discomfort/fullness after eating. No fevers, denies urinary symptoms at this time. Objective - Vital Signs Vital signs: Vital Signs Temp 97.7 F 03/30/20 05:25 Pulse 72 03/30/20 05:25 Resp 18 03/30/20 05:25 BP 149/77 03/30/20 05:25 Pulse Ox 96 03/30/20 05:25 Intake & Output 03/29/20 03/30/20 03/30/20 18:59 06:59 18:59 Intake Total 2100 Balance 2100 Intake: Intake, IV Titration 900 Amount Sodium Chloride 0.9% 1, 900 000 ml @ 75 mls/hr IV . [id number] [facility] Rx#:[id number] Oral 1200 Other: Voiding Method Bedside Commode Bedside Commode Bedside Commode # Voids 2 # Bowel Movements 1 - Constitutional General appearance: Present: average body habitus, cooperative, mild distress - EENT Eyes: Present: anicteric sclerae, EOMI ENT: Present: hearing grossly normal - Respiratory Respiratory: bilateral: CTA - Cardiovascular Heart sounds: normal: S1, S2 - Peripheral edema leg Peripheral Edema: bilateral: None - Gastrointestinal General gastrointestinal: Present: decreased bowel sounds, soft Localized gastrointestinal: tender: epigastric periumbilical - Integumentary Integumentary: Present: pale - Neurologic Neurologic: Present: CNII-XII intact - Musculoskeletal Musculoskeletal: Present: generalized weakness - Psychiatric Psychiatric: Present: A&O x's 3, appropriate affect, intact judgment & insight - Labs CBC & Chem 7: 03/30/20 04:38 03/30/20 04:38 Labs: Abnormal Lab Results - Last 24 Hours (Table) 03/29/20 03/30/20 03/30/20 Range/Units 05:26 04:38 04:38 RBC 3.61 L (3.80-5.40) m/uL Hgb 9.2 L (11.4-16.0) gm/dL Hct 29.8 L (34.0-46.0) % MCHC 30.9 L (31.0-37.0) g/dL RDW 19.7 H (11.5-15.5) % Plt Count 88 L (150-450) k/uL Potassium 3.3 L (3.5-5.5) mmol/L BUN 6.0 L 5.0 L (9.0-27.0) mg/dL Creatinine 0.5 L 0.4 L (0.6-1.5) mg/dL Calcium 7.7 L 7.7 L (8.7-10.3) mg/dL AST 12 L (13-35) U/L ALT <8 L (8-44) U/L Total Protein 5.0 L 4.7 L (6.2-8.2) g/dL Albumin 3.40 L 3.10 L (3.80-4.90) g/dL Microbiology - Last 24 Hours (Table) 03/28/20 00:25 Urine Culture - Final Urine,Clean Catch Enterobacter aerogenes 03/28/20 01:30 Blood Culture - Preliminary Blood No Growth after 48 hours Assessment and Plan (1) UTI (urinary tract infection) Narrative/Plan: Culture positive for Enterobacter UTI. Pending sensitivity. IV antibiotics ordered. Current Visit: Yes Status: Acute Priority: High Code(s): N39.0 - URINARY TRACT INFECTION, SITE NOT SPECIFIED SNOMED Code(s): 19743393 (2) Nausea & vomiting Narrative/Plan: Patient does have a degree of chronicity of nausea, antiemetics do help. There is associated with epigastric pain and early satiety. Continuing on antiemetics. Concerns for using Reglan while patient has diarrhea. Trying stomach coating medicine today. Current Visit: Yes Status: Acute Priority: High Code(s): R11.2 - NAUSEA WITH VOMITING, UNSPECIFIED SNOMED Code(s): 89444907 (3) Colon cancer Narrative/Plan: Plan is to resume patient on treatment once infection is cleared. Patient has required dose adjustments for side effects of treatment. Further adjustments as appropriate. Current Visit: Yes Status: Chronic Priority: High Code(s): C18.9 - MALIGNANT NEOPLASM OF COLON, UNSPECIFIED SNOMED Code(s): 212043545 Plan: Doctor attests: I performed a history and physical examination of this patient, developed impression and plan of care. Discussed with dictator. I agree with dictators note, documented as a scribe.
--- NOTE | 2020-03-30 12:44 | P.PN ---
Subjective 74-year-old female who presents the emergency department today for evaluation of dizziness lightheadedness complaining of nausea. Patient reports that she's been having nausea symptoms for the past week since having her chemotherapy. She does have stage IV colon cancer. Patient denies any current chest pain, headache or shortness of breath. She states that she just feels weak and lightheaded. Patient reports no vomiting. She did have episodes of diarrhea this week which stopped with Imodium. Patient had chemotherapy on . Patient has metastatic colon cancer metastases to lung and liver. Patient nausea vomiting diarrhea symptoms and improved at this time patient is a week will need that physical therapy and occupational therapy evaluation. 03/29/2020 After evaluation by physical therapy and if appropriate patient will be dis charged today. Patient nausea vomiting diarrhea improved patient last diarrhea was yesterday which improved with the antidiarrheal medications and patient doesn't have C. diff. Awaiting basic metabolic profile from today, is there any left leg abnormality stools will be corrected before discharge. 03/30/2020 Patient urine cultures are positive for a Enterobacteriaceae which is assisted multiple antibiotics consisting this is an Enterobacter although patient was started on Rocephin patient was a switched to levofloxacin can be discharged on Cipro patient will need total 3-5 days of antibiotics. Patient may have is some dry bacteria mostly not be UTI considering her immunosuppressed state of good and treat the patient. Patient is comparing of nausea. If patient feels better by the end of the day patient will be discharged as patient the will stay in the hospital. Constitutional: Denied any fatigue denied any fever. Cardio vascular: denied any chest pain, palpitations Gastrointestinal denied any nausea vomiting Pulmonary: Mentioned in HPI Neurologic denied any new focal deficits All inpatient medications were reviewed and appropriate changes in these medications as dictated in the interval history and assessment and plan. Objective - Vital Signs Vital signs: Vital Signs Temp 98.5 F 03/30/20 11:34 Pulse 76 03/30/20 11:34 Resp 17 03/30/20 11:34 BP 149/79 03/30/20 11:34 Pulse Ox 98 03/30/20 11:34 Intake & Output 03/29/20 03/30/20 03/30/20 18:59 06:59 18:59 Intake Total 2100 Balance 2100 Intake: Intake, IV Titration 900 Amount Sodium Chloride 0.9% 1, 900 000 ml @ 75 mls/hr IV . [id number] [facility] Rx#:[id number] Oral 1200 Other: Voiding Method Bedside Commode Bedside Commode Bedside Commode # Voids 2 # Bowel Movements 1 - Exam PHYSICAL EXAMINATION: GENERAL: Alert oriented 3 is in mild distress because of her nausea. HEENT: Pupils are round and equally reacting to light. EOMI. No scleral icterus. No conjunctival pallor. Normocephalic, atraumatic. No pharyngeal erythema. No thyromegaly. CARDIOVASCULAR: S1 and S2 present. No murmurs, rubs, or gallops. PULMONARY: Chest is clear to auscultation, no wheezing or crackles. ABDOMEN: Soft, nontender, nondistended, normoactive bowel sounds. No palpable organomegaly. MUSCULOSKELETAL: No joint swelling or deformity. EXTREMITIES: No cyanosis, clubbing, or pedal edema. NEUROLOGICAL: Gross neurological examination did not reveal any focal deficits. SKIN: No rashes. - Labs CBC & Chem 7: 03/30/20 04:38 03/30/20 04:38 Labs: Abnormal Lab Results - Last 24 Hours (Table) 03/29/20 03/30/20 03/30/20 Range/Units 05:26 04:38 04:38 RBC 3.61 L (3.80-5.40) m/uL Hgb 9.2 L (11.4-16.0) gm/dL Hct 29.8 L (34.0-46.0) % MCHC 30.9 L (31.0-37.0) g/dL RDW 19.7 H (11.5-15.5) % Plt Count 88 L (150-450) k/uL Potassium 3.3 L (3.5-5.5) mmol/L BUN 6.0 L 5.0 L (9.0-27.0) mg/dL Creatinine 0.5 L 0.4 L (0.6-1.5) mg/dL Calcium 7.7 L 7.7 L (8.7-10.3) mg/dL AST 12 L (13-35) U/L ALT <8 L (8-44) U/L Total Protein 5.0 L 4.7 L (6.2-8.2) g/dL Albumin 3.40 L 3.10 L (3.80-4.90) g/dL Microbiology - Last 24 Hours (Table) 03/28/20 00:25 Urine Culture - Final Urine,Clean Catch Enterobacter aerogenes 03/28/20 01:30 Blood Culture - Preliminary Blood No Growth after 48 hours Assessment and Plan Plan: - nausea vomiting diarrhea: Probably secondary to chemotherapy nausea vomiting diarrhea improved will obtain abdominal x-ray not showing bowel obstruction. Patient's precautions as mentioned above -Possibly of urinary tract infection that I cannot completely rule out patient urine cultures are positive for Enterobacter, patient will be started on levofloxacin as mentioned above -Ruled out C. diff colitis -Colon cancer metastasis: Patient is receiving chemotherapy. -Ganeralized weakness secondary to cancer: Physical therapy evaluation.
[2020-03-30] MEDS: SUCRALFATE 1 GM TAB PO SCH ×2 (12:45→17:34)
--- NOTE | 2020-03-30 17:55 | XR ---
EXAMINATION TYPE: XR abdomen complete w decub DATE OF EXAM: 03/30/2020 COMPARISON: 03/28/2020 HISTORY: Abdominal pain TECHNIQUE: Supine and upright and decubitus views. FINDINGS: There is no sign of intestinal obstruction or pneumoperitoneum. Fecal pattern is normal. Th ere are no definite calcifications over the kidneys. There is gas down to the rectum. There is modera te spondylotic change in the lumbar spine. 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 IMPRESSION: Nonacute abdomen. No free air. No change.
[2020-03-31 05:26] VITALS: PULSE 77
[2020-03-31] MEDS: PANTOPRAZOLE 40 MG/10 ML VIAL IV SCH (08:44)
[2020-03-31] MEDS: ENOXAPARIN 40 MG/0.4 ML SYRINGE SQ SCH (08:44)
[2020-03-31] MEDS: SUCRALFATE 1 GM TAB PO SCH ×3 (08:45→11:57)
[2020-03-31] MEDS: MAG HYDROX/AL HYDROX/SIMETH 30 ML, diphenhydrAMINE ELIXIR 75 MG, NYSTATIN 100,000 UNIT/... PO SCH ×6 (08:48→12:00)
[2020-03-31] MEDS: SALT AND SODA MOUTHWASH 1,000 ML PO SCH ×2 (08:48→17:29)
[2020-03-31] MEDS: ONDANSETRON 4 MG/2 ML VIAL IVP PRN (09:02)
[2020-03-31] MEDS ORDERED: SULFAMETHOX-TMP 800-160MG 1 EACH TAB PO SCH (11:00)
--- NOTE | 2020-03-31 11:03 | P.PN ---
Subjective Progress Note Date: 03/31/20 Principal diagnosis: UTI, nausea, vomiting, diarrhea. On treatment for colon cancer In follow-up today patient states small amount of breakfast, started to get nauseated , stopped eating and used zofran, felt better but, not able to eat more at that time. She feels a little better today, frustrated that she is having nausea. Objective - Vital Signs Vital signs: Vital Signs Temp 98 F 03/31/20 05:26 Pulse 77 03/31/20 05:26 Resp 18 03/31/20 05:26 BP 157/81 03/31/20 05:26 Pulse Ox 98 03/31/20 05:26 Intake & Output 03/30/20 03/31/20 03/31/20 18:59 06:59 18:59 Intake Total 350 480 Balance 350 480 Intake: Intake, IV Titration 50 300 Amount Sodium Chloride 0.9% 1, 300 000 ml @ 75 mls/hr IV . [id number] [facility] Rx#:[id number] cefTRIAXone 1 gm In 50 Sodium Chloride 0.9% 50 ml @ 100 mls/hr IVPB Q24HR [facility] Rx#:[id number] Oral 300 180 Other: Voiding Method Bedside Commode Bedside Commode # Voids 2 4 - Constitutional General appearance: Present: average body habitus, cooperative, no acute distress - EENT Eyes: Present: anicteric sclerae, EOMI ENT: Present: hearing grossly normal - Respiratory Details: resp even and unlabored - Cardiovascular Heart sounds: normal: S1, S2 - Gastrointestinal General gastrointestinal: Present: decreased bowel sounds, soft - Neurologic Neurologic: Present: CNII-XII intact - Musculoskeletal Musculoskeletal: Present: generalized weakness - Psychiatric Psychiatric: Present: A&O x's 3, appropriate affect, intact judgment & insight - Labs CBC & Chem 7: 03/30/20 04:38 03/30/20 04:38 Labs: Microbiology - Last 24 Hours (Table) 03/28/20 01:30 Blood Culture - Preliminary Blood No Growth after 72 hours 03/28/20 00:25 Urine Culture - Final Urine,Clean Catch Enterobacter aerogenes - Imaging and Cardiology Abdominal x-ray: report reviewed Assessment and Plan (1) UTI (urinary tract infection) Narrative/Plan: Culture positive for Enterobacter UTI. Sensitivity reviewed. Bactrim ordered orally. She has trouble swallowing larger pills. RN is going to give to pt and see how she does. If ok will send Rx to pt pharmacy, if not, will contact pharmacy to see if any of the abx her UTI is susceptible to can be compounded into a suspension. Will f/u with RX Current Visit: Yes Status: Acute Priority: High Code(s): N39.0 - URINARY TRACT INFECTION, SITE NOT SPECIFIED SNOMED Code(s): 90665105 (2) Nausea & vomiting Narrative/Plan: Patient does have a degree of chronicity of nausea, antiemetics do help. There is associated with epigastric pain and early satiety. Continuing on antiemetics. Pt vomited carafate, will stop. Recommend she use zofran ATC. She has Rx at home. Current Visit: Yes Status: Acute Priority: High Code(s): R11.2 - NAUSEA WITH VOMITING, UNSPECIFIED SNOMED Code(s): 78509798 (3) Colon cancer Narrative/Plan: Plan is to resume patient on treatment once infection is cleared. Treatment will be pushed out 1 week Patient has required dose adjustments for side effects of treatment. Further adjustments as appropriate. Current Visit: Yes Status: Chronic Priority: High Code(s): C18.9 - MALIGNANT NEOPLASM OF COLON, UNSPECIFIED SNOMED Code(s): 797531624 Plan: Doctor attests: I performed a history and physical examination of this patient, developed impression and plan of care. Discussed with dictator. I agree with dictators note, documented as a scribe.
[2020-03-31] MEDS: SODIUM CHLORIDE 0.9% 1,000 ML IV SCH (12:01)
[2020-03-31 12:09] VITALS: BP 160/84; RESP 17; TEMP 97.7
== END 2020-03-31 18:34 | disposition home health service (06) | DRG 394 ==
LOC: EC 21:27 → 6NMEDSUR 03-28 00:21 → OBSVTOIN 03-31 08:21
PROVIDERS: ADMIT Hospitalist; ATTEND Hospitalist
DX: K52.1 Toxic gastroenteritis and colitis (principal); C18.9 Malignant neoplasm of colon, unspecified; N39.0 Urinary tract infection, site not specified; C78.00 Secondary malignant neoplasm of unspecified lung; C78.7 Secondary malignant neoplasm of liver and intrahepatic bile duct; R11.2 Nausea with vomiting, unspecified; G71.00 Muscular dystrophy, unspecified; E86.0 Dehydration; T45.1X5A Adverse effect of antineoplastic and immunosuppressive drugs, initial encounter; D70.9 Neutropenia, unspecified; R13.10 Dysphagia, unspecified; B96.89 Other specified bacterial agents as the cause of diseases classified elsewhere; Z79.899 Other long term (current) drug therapy; Z88.5 Allergy status to narcotic agent; Z88.8 Allergy status to other drugs, medicaments and biological substances; Z98.891 History of uterine scar from previous surgery; Z98.1 Arthrodesis status; Z98.890 Other specified postprocedural states; Z83.3 Family history of diabetes mellitus; Z87.891 Personal history of nicotine dependence; Z80.9 Family history of malignant neoplasm, unspecified; Z82.69 Family history of other diseases of the musculoskeletal system and connective tissue
CPT/HCPCS: 36415; 51701; 71046; 74021; 74022; 80053; 81001; 83605; 83735; 84484; 85025; 85027; 85610; 87040; 87077; 87086; 87186; 87324; 93005; 96361; 96374; 96375; 99285